=== PATIENT | male | born 1970 | race Caucasian/White ===

== ENCOUNTER 2023-11-09 09:27 | Emergency (ER) | payer OTHER, SELFPAY ==
[2023-11-09] VITALS (13 sets, daily range): BP systolic 98–165; BP diastolic 55–93; PULSE 57–72; RESP 13–20; TEMP 36.2; O2SAT 95–99; BMI 25.0
--- NOTE | 2023-11-09 09:30 | ECG_ITS ---
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
--- NOTE | 2023-11-09 09:30 | XR_ITS ---
The [address] [address] Patient Name: WILL GANDARA MRN: [id number] date: 1970 Sex: M Assigned Patient Location: ER Current Patient Location: ED.MAIN Accession/Order Number: [id number] Exam Date: 11/09/2023 09:37 Report Date: 11/09/2023 10:16 At the request of: OMAR BENEDICT Procedure: XR chest 1V HISTORY: Chest pain. XR chest 1V: 11/09/2023 9:37 AM EST COMPARISON: None. FINDINGS: The cardiomediastinal silhouette appears within normal limits in size. No focal consolidation, pleural effusion, pneumothorax, or evidence of congestive heart failure is seen. XR/XR chest 1V IMPRESSION: No radiographic evidence of active cardiopulmonary disease is seen. Electronically authenticated by: JASWINDER BAI Date: 11/09/2023 10:16
[2023-11-09 09:35] LABS: Basophils Absolute Auto 0.1 10^3/uL (0.0-0.1); Basophils Percent Auto 0.9 % (0.2-2.0); Eosinophils Absolute Auto 0.3 10^3/uL (0.0-0.7); Eosinophils Percent Auto 3.9 % (0.9-7.0); Hematocrit 45.6 % (42.0-54.0); Hemoglobin 15.8 g/dL (14.0-18.0); Immature Granulocytes Abs Auto 0.02 10^3/uL (0.00-0.03); Immature Granulocytes Pct Auto 0.3 % (0.0-0.5); Lymphocytes Absolute Auto 1.4 10^3/uL (1.2-3.8); Mean Corpuscular HGB Conc 34.6 g/dL (29.9-35.2); Mean Corpuscular Hemoglobin 32.8 pg (25.9-34.0); Mean Corpuscular Volume 94.6 fL (80.0-94.0); Mean Platelet Volume 9.5 fL (9.5-13.5); Monocytes Absolute Auto 0.6 10^3/uL (0.3-0.8); Monocytes Percent Auto 8.8 % (1.7-12.0); Neutrophils Absolute Auto 4.4 10^3/uL (1.4-6.5); Neutrophils Percent Auto 65.1 % (43.0-75.0); Platelet Count 268 10^3/uL (150-450); Red Blood Count 4.82 10^6/uL (4.70-6.10); Red Cell Distribution Width 12.7 % (11.0-15.0); White Blood Count 6.7 10^3/uL (4.0-11.0)
--- NOTE | 2023-11-09 09:44 | ED_ITS ---
HPI - Chest Pain General Chief Complaint: Chest Pain Stated Complaint: CHEST PAIN Time Seen by Provider: 11/09/23 09:29 Source: patient Mode of arrival: ambulance Limitations: no limitations History of Present Illness HPI narrative: Presenting to us with a retrosternal chest pressure that he felt almost at 4 AM, he mentioned that he does not have the pressure anymore but he feels like he panicked after he had it and he is worried about his pain. The patient denies any cough any nausea or any feeling of dizziness. He did mention that he felt like he is dehydrated when he had the pain. He also mentioned that he had some alcoholic drinks before going to sleep and he went to sleep at 8 PM. The patient have smoking cigarettes history with 1 pack/day Related Data Allergies Allergy/AdvReac Type Severity Reaction Status Date / Time No Known Drug Allergies Allergy Verified 11/09/23 09:36 Review of Systems ROS Status of ROS 10 or more systems reviewed and unremark able except as noted in history and below [facility] Social History Smoking status: Current every day smoker Exam Narrative Exam Narrative: Nurses notes and vital signs reviewed and patient is not hypoxic. General: Well-appearing and in no apparent distress. Skin: Warm, dry, no pallor noted. No rash. Head: Normocephalic, atraumatic. Neck: Supple, non-tender. Eye: Pupils are equal, round and EOMI. No scleral icterus. Ears, Nose, Mouth, and Throat: TM are clear, no nasal mucosal hypertrophy. Oral mucosa is moist, no posterior oropharynx erythema, uvula is mid-line Cardiovascular: Regular Rate and Rhythm without murmur, gallop or rub. Respiratory: No accessory muscle use or respiratory distress. Lungs are clear to auscultation, no wheezing, rales or rhonchi Chest Wall: no tenderness Back: No midline thoracic or lumbar vertebral tenderness. No CVA tenderness Musculoskeletal: normal ROM, no calf or popliteal tenderness, no lower extremity edema/swelling GI: Abdomen is soft, non-distended. Normal bowel sounds. No masses appreciated. No tenderness to palpation. No rebound, guarding, or rigidity noted. Neurological: A&O x4. No cranial nerve dysfunction observed. No truncal ataxia. Moves all extremities. Sensation intact. Psychiatric: Cooperative and interactive. Normal mood and affect. Constitutional Vital Signs, click to edit/add: Last Vital Signs Temp 97.1 F L 11/09/23 09:29 Pulse 62 11/09/23 10:40 Resp 18 11/09/23 10:40 BP 130/76 11/09/23 10:33 Pulse Ox 97 11/09/23 10:40 O2 Del Method Room Air 11/09/23 09:29 Course Vital Signs Vital signs: Vital Signs Temperature 97.1 F L 11/09/23 09:29 Pulse Rate 65 11/09/23 09:29 Respiratory Rate 14 11/09/23 09:29 Blood Pressure 165/93 H 11/09/23 09:29 Pulse Oximetry 99 11/09/23 09:29 Oxygen Delivery Method Room Air 11/09/23 09:29 Temperature 97.1 F L 11/09/23 09:29 Pulse Rate 62 11/09/23 10:40 Respiratory Rate 18 11/09/23 10:40 Blood Pressure 130/76 11/09/23 10:33 Pulse Oximetry 97 11/09/23 10:40 Oxygen Delivery Method Room Air 11/09/23 09:29 MDM - Chest Pain MDM Narrative Medical decision making narrative: The patient EKG showing sinus rhythm with a heart rate of [address] elevation or depression there is T wave inversion in lead aVL CBC and chemistry showed no acute pathology and he was discharged home after a negative troponin was obtained twice Patient had no chest pain in the ER right now his pain could be atypical mostly acid reflux He was instructed that he need to follow-up with a primary care doctor as outpatient he also was advised against smoking cigarettes The patient is to follow up with primary care physician in next 2-3 days or to return to the emergency department should any of the signs or symptoms worsen or new symptoms develop. The patient agrees with the following Diagnosis and Treatment plan and the patient will be discharged home. Lab Data Labs: Lab Results 11/09/23 11/09/23 Range/Units 09:29 10:40 WBC 6.7 (4.0-11.0) 10^3/uL RBC 4.82 (4.70-6.10) 10^6/uL Hgb 15.8 (14.0-18.0) g/dL Hct 45.6 (42.0-54.0) % MCV 94.6 H (80.0-94.0) fL MCH 32.8 (25.9-34.0) pg MCHC 34.6 (29.9-35.2) g/dL RDW 12.7 (11.0-15.0) % Plt Count 268 (150-450) 10^3/uL MPV 9.5 (9.5-13.5) fL Neut % (Auto) 65.1 (43.0-75.0) % Lymph % (Auto) 21.0 (20.5-60.0) % [place] % (Auto) 8.8 (1.7-12.0) % Eos % (Auto) 3.9 (0.9-7.0) % Baso % (Auto) 0.9 (0.2-2.0) % Neut # (Auto) 4.4 (1.4-6.5) 10^3/uL Lymph # (Auto) 1.4 (1.2-3.8) 10^3/uL [place] # (Auto) 0.6 (0.3-0.8) 10^3/uL Eos # (Auto) 0.3 (0.0-0.7) 10^3/uL Baso # (Auto) 0.1 (0.0-0.1) 10^3/uL Abs Immat Gran (auto) 0.02 (0.00-0.03) 10^3/uL Imm/Tot Granulo (auto) 0.3 (0.0-0.5) % PT 9.4 (9.0-11.6) sec INR <0.93 Sodium 136 (136-145) mmol/L Potassium 3.9 (3.5-5.1) mmol/L Chloride 98 (98-107) mmol/L Carbon Dioxide 26.4 (21.0-32.0) mmol/L Anion Gap 15.5 BUN 6.0 L (7.0-18.0) mg/dL Creatinine 0.92 (0.70-1.30) mg/dL Est GFR ( Amer) >60 (>=60) Est GFR (Non-Af Amer) >60 (>=60) BUN/Creatinine Ratio 6.5 Glucose 102 (74-106) mg/dL Calcium 8.5 (8.5-10.1) mg/dL Total Bilirubin 0.3 (0.2-1.0) mg/dL AST 16 (15-37) U/L ALT 23 (16-63) U/L Alkaline Phosphatase 58 (46-116) U/L Troponin I High Sens 4.1 4.4 (4.0-76.1) pg/mL Total Protein 7.6 (6.4-8.2) g/dL Albumin 4.2 (3.4-5.0) g/dL Globulin 3.4 g/dL Albumin/Globulin Ratio 1.2 Discharge Plan Discharge Chief Complaint: Chest Pain Clinical Impression: Chest pain due to GERD, Atypical chest pain Patient Disposition: Home, Self-Care Time of Disposition Decision: 10:18 Condition: Good Instructions: GERD (Gastroesophageal Reflux Disease) (DC), Noncardiac Chest Pain (ED) Stand Alone Forms: Portal Instructions Referrals: Magdiel Jean MD [Physician] - 1 week Physician,Non-Staff, [Primary Care Provider] - 1 week
[2023-11-09 09:51] LABS: Prothrombin Time 9.4 sec (9.0-11.6)
[2023-11-09 09:56] LABS: Alanine Aminotransferase 23 U/L (16-63); Albumin Globulin Ratio 1.2; Albumin Level 4.2 g/dL (3.4-5.0); Alkaline Phosphatase 58 U/L (46-116); Anion Gap 15.5; Aspartate Amino Transferase 16 U/L (15-37); BUN Creatinine Ratio 6.5; Bilirubin Total 0.3 mg/dL (0.2-1.0); Calcium 8.5 mg/dL (8.5-10.1); Carbon Dioxide 26.4 mmol/L (21.0-32.0); Chloride 98 mmol/L (98-107); Estimated GFR (African America >60 (>=60); Estimated GFR (Non-African Ame >60 (>=60); Globulin 3.4 g/dL; Glucose 102 mg/dL (74-106); Potassium 3.9 mmol/L (3.5-5.1); Sodium 136 mmol/L (136-145); Total Protein 7.6 g/dL (6.4-8.2); Troponin I High Sensitivity 4.1 pg/mL (4.0-76.1)
[2023-11-09 09:57] LABS: INR <0.93
[2023-11-09 11:07] LABS: Troponin I High Sensitivity 4.4 pg/mL (4.0-76.1)
== END 2023-11-09 11:18 | disposition home or self-care (01) ==
PROVIDERS: Emergency Provider Emergency Medicine
DX: K21.9 Gastro-esophageal reflux disease without esophagitis (principal); R07.89 Other chest pain; F17.210 Nicotine dependence, cigarettes, uncomplicated
CPT/HCPCS: 36415; 71045; 80053; 84484; 85025; 85610; 93005; 99285

== ENCOUNTER 2023-12-18 16:32 | Emergency (ER) | payer OTHER, SELFPAY ==
--- OUTSIDE RECORDS SUMMARY | 2023-12-18 16:51 | XMS_ITS | CCD ---
Author Name Unknown Address [address] [facility] [address] [place] [id number] Organization [facility] Care Team Providers Care Storage Battery Charger Name Role Phone PAY ., DR ZEPEDA Consulting Unavailable PAY ., DR ZEPEDA Admitting Unavailable REQUEST, NONE LISTED Primary Care Unavaila ble PAY ., DR ZEPEDA Attending Unavailable REQUEST, NONE LISTED Primary Care Unavaila ble ZIEBER, DR ELIZABETH Coronado Consulting Unavailable MELISSA ., JULIA Admitting Unavailable MELISSA ., JULIA Attending Unavailable MELISSA ., JULIA Consulting Unavailable REQUEST, DR NONE LISTED Primary Care Unavaila ble MELISSA ., JULIA Admitting Unavailable Glenn Vela Consulting Unavailable MELISSA ., JULIA Attending Unavailable MELISSA ., JULIA Consulting Unavailable REQUEST, DR NONE LISTED Primary Care Unavaila ble HAY ., DR VILLALBA Admitting Unavailable HAY ., DR VILLALBA Attending Unavailable HAY ., DR VILLALBA Consulting Unavailable Problems Active Problems Problem Classification Problem Date Documented Da te Episodic/Chronic Genitourinary symptoms and ill-defined conditions (1 source) Retention of urine, unspecified; Translations: [RETENTION OF URINE UNSPECIFIED] Onset: 12-04-2022 Episodic Substance-related disorders (1 source) Nicotine dependence, cigarettes, uncomplicated; Translations: [NICOTINE DEPEND CIGARETTES UNCOMP] Onset: 05-24-2022 Chronic Unclassified (3 sources) LOW BACK PAIN, UNSPECIFIED; Translations: [LOW BACK PAIN, UNSPECIFIED] Onset: 05-24-2022 Past or Other Problems Problem Classification Problem Date Documented Da te Episodic/Chronic Other non-traumatic joint disorders (3 sources) Pain in right knee; Translations: [PAIN IN RIGHT KNEE] Onset: 03-27-2022 Episodic Other non-traumatic joint disorders (1 source) Effusion, right knee; Translations: [EFFUSION RIGHT KNEE] Onset: 04-02-2022 Episodic Skin and subcutaneous tissue infections (4 sources) Cutaneous abscess of perineum; Translations: [CUTANEOUS ABSCESS OF PERINEUM] Onset: 02-21-2022 Episodic Unclassified (1 source) LOW BACK PAIN, UNSPECIFIED; Translations: [LOW BACK PAIN, UNSPECIFIED] Onset: 12-03-2022 Results Test Name Value Interpretation Reference Range Facil ity ER URINE PROFILEon 3 Bilirubin Ql (U) Negative Normal NEGATIVE The [facility] Comment on above: Performed By: #### E RUR #### [facility] [address] [place] [address] Dr. Norbert Mcclure Clarity (U) CLEAR Normal CLEAR [facility] Comment on above: Performed By: #### E RUR #### [facility] [address] [place] [address] Dr. Norbert Mcclure Color (U) YELLOW Normal YELLOW [facility] Comment on above: Performed By: #### E RUR #### [facility] [address] [place] [address] Dr. Norbert SENA A micrscopic examination will be performed if indicated. Normal [facility] Comment on above: Performed By: #### E RUR #### [facility] [address] [place] [address] Dr. Norbert Mcclure Glucose Ql (U) Negative Normal NEGATIVE [facility] Comment on above: Performed By: #### E RUR #### [facility] [address] [place] [address] Dr. Norbert Mcclure Hemoglobin Ql (U) Negative Normal NEGATIVE [facility] Comment on above: Performed By: #### E RUR #### [facility] [address] [place] [address] Dr. Norbert Mcclure Ketones Ql (U) Negative Normal NEGATIVE [facility] Comment on above: Performed By: #### E RUR #### [facility] [address] [place] [address] Dr. Norbert Mcclure LEUKOCYTES Negative Normal NEGATIVE [facility] Comment on above: Performed By: #### E RUR #### [facility] [address] [place] [address] Dr. Norbert Mcclure Nitrite Ql (U) Negative Normal NEGATIVE [facility] Comment on above: Performed By: #### E RUR #### [facility] [address] [place] [address] Dr. Norbert Mcclure pH (U) 6.0 [pH] Normal 5-9 [facility] Comment on above: Performed By: #### E RUR #### [facility] [address] [place] [address] Dr. Norbert Mcclure SPEC GRAVITY 1.010 Normal 1.005-<=1.025 [facility] Comment on above: Performed By: #### E RUR #### [facility] [address] [place] [address] Dr. Norbert Mcclure UA PROTEIN Negative Normal NEGATIVE/ TRACE [facility] Comment on above: Performed By: #### E RUR #### [facility] [address] [place] [address] Dr. Norbert Mcclure UR MICRO IND NOT INDICATED Normal [facility] Comment on above: Performed By: #### E RUR #### [facility] [address] [place] [address] Dr. Norbert Mcclure Urobilinogen Qn (U) 0.2 {Dara'U}/dL Normal 0.2 - 1. 0 [facility] Comment on above: Performed By: #### E RUR #### [facility] [address] [place] [address] Dr. Norbert Mcclure XR LSPINE 2_3 VIEWSon 2021 XR LSPINE 2_3 VIEWS EXAMINATION: XR LSPINE 2_3 VIEWS HISTORY: Pain ; low back and left leg pain COMPARISON: No relevant comparison available. FINDINGS: BONES: Mild degenerative facet arthropathy L4-L5, L5-S1. Slight right convex curvature of lumbar spine. No fracture or visible bony lesion. DISC SPACES: Moderate-marked narrowing L5-S1. Mild narrowing L3-L4, L4-L5. PARASPINOUS: Negative. No paraspinous abnormality is seen. OTHER: Negative. IMPRESSION: 1. Degenerative changes of the lower lumbar spine; moderate-marked at L5-S1. 2. No acute bone abnormality. Electronically authenticated by: ELIZABETH CHOW Date: 2022-05-22 10:10 Normal [facility] Encounters Encounter Date Encounter Type Care Provider Facility Start: 12-03-2022 End: 12-03-[address] KATELYN NEW . Facility: Start: 05-22-2022 End: 05-22-2022 ambulatory NONE LISTED REQUEST Facility: Start: 03-27-2022 End: 03-27-2022 ambulatory NONE LISTED REQUEST Facility: Start: 02-21-2022 End: 02-21-2022 ambulatory NONE LISTED REQUEST Facility: Payers Date Payer Category Payer Unknown [id number] 1970 Unknown [id number] 1970 Unknown [id number] 1970 Unknown [id number] 1959 Unknown [id number] 1959 Unknown [id number] Clinical Note 03-27-2022 Note Date & Type Note Facility 03-27-2022 Note PROCEDURE: XR KNEE R T 4V or > COMPARISON: None. HISTORY: Bone injury FINDINGS: BONES:No acute fracture or dislocation. Minimal degenerative changes of the medial compartment. Marginal osteophyte formation. Area of focal sclerosis identified in the lateral femoral condyle, narrow zone of transition suggests a benign enostosis SOFT TISSUES:Negative. No visible soft tissue swelling. EFFUSION:Small suprapatellar joint effusion OTHER: Negative. IMPRESSION: Mild degenerative changes Small joint effusion Electronically authenticated by: GLENN VELA Date: 2022-03-27 10:58 [facility] Summary Purpose Family History No Family History Records Found Advance Directives No Advanced Directives Records Found Additional Source Comments (unrecognized sect ion and content) No Status Records Found INFORMATION SOURCE (unrecogn ized section and content) DATE CREATED AUTHOR 01/16/2023 [facility] FOR RECORDS PERTAINING TO PATIENTS WHO ARE OR HAVE BEEN ENROLLED IN A CHEMICAL DEPENDENCY/SUBSTANCEABUSE PROGRAM, SOME INFORMATION MAY BE OMITTED. This clinical summary was aggregated from multiple sources. Caution should be exercised in using it in the provision of clinical care. This summary normalizes information from multiple sources, and as a consequence, information in this document may materially change the coding, format and clinical context of patient data. In addition, data may be omitted in some cases. CLINICAL DECISIONS SHOULD BE BASED ON THE PRIMARY CLINICAL RECORDS. [facility] [employer] [facility]. provides no warranty or guarantee of the accuracy or completeness of information in this document.
[2023-12-18 17:04] VITALS: BP 141/75; PULSE 67; RESP 18; TEMP 36.7; O2SAT 96; BMI 22.9
--- NOTE | 2023-12-18 17:09 | XR_ITS ---
The [address] [address] Patient Name: WILL GANDARA MRN: [id number] date: 1970 Sex: M Assigned Patient Location: ER Current Patient Location: ER Accession/Order Number: [id number] Exam Date: 12/18/2023 17:12 Report Date: 12/18/2023 17:32 At the request of: VIKA LION Procedure: XR chest 2V EXAM: XR chest 2V HISTORY: cough COMPARISON: 11/09/2023 TECHNIQUE: Upright PA and lateral chest x-ray FINDINGS: The heart is not enlarged and the vasculature is not distended. No acute infiltrate, effusion or pneumothorax is identified. The osseous structures are grossly intact. XR/XR chest 2V IMPRESSION: No acute infiltrate or evidence of cardiac decompensation. The overall appearance of the chest is essentially unchanged. Electronically authenticated by: DAGOBERTO SALGADO Date: 12/18/2023 17:32
[2023-12-18 17:55] LABS: SARS-CoV-2 Ag NEGATIVE (NEGATIVE)
[2023-12-18 17:56] LABS: Influenza Virus A Antigen Negative; Influenza Virus B Antigen Negative; Internal Control Within Normal Limits
--- NOTE | 2023-12-18 18:04 | ED.URI1 ---
HPI - URI/Sore Throat General Chief Complaint: Upper Respiratory Infection Stated Complaint: CONGESTION Time Seen by Provider: 12/18/23 18:01 Source: patient Limitations: no limitations History of Present Illness HPI Narrative: 53 year old male presents to the ED for sinus congestion/drainage, cough, fatigue. Onset was 3 days ago. Denies fever, chills, SOB, N/V/D. He is a smoker. Related Data Previous Rx's Medication Instructions Recorded azithromycin 250 mg tablet See Rx Instructions PO .COMPLEX #6 12/18/23 (Zithromax Z-Rafael) tabs Allergies Allergy/AdvReac Type Severity Reaction Status Date / Time No Known Drug Allergies Allergy Verified 12/18/23 17:06 Review of Systems ROS Constitutional Denies: fever or chills Ears, nose, mouth, and throat Denies: throat pain or neck pain Cardiovascular Denies: chest pain Respiratory Reports: cough and wheezing; Denies: shortness of breath Gastrointestinal Denies: abdominal pain, nausea, vomiting or diarrhea Musculoskeletal Denies: back pain or neck pain Integumentary/Breast Denies: rash or itching Neurological Denies: headache PFSH PFSH Social History Smoking status: Current every day smoker Exam Constitutional Vital Signs, click to edit/add: Last Vital Signs Temp 98.1 F 12/18/23 17:04 Pulse 67 12/18/23 17:04 Resp 18 12/18/23 17:04 BP 141/75 12/18/23 17:04 Pulse Ox 96 12/18/23 17:04 O2 Del Method Room Air 12/18/23 17:04 HENMT Face and sinus: normal facial exam Nose: nasal discharge Mouth: oral and palatal mucosa normal, lip normal and tongue normal Throat: posterior oropharynx normal and uvula midline Eye Common normals: conjunctivae normal and no scleral icterus Neck & C-Spine Common normals: supple Chest Chest: symmetrical chest wall rise Respiratory Common normals: normal respiratory effort and no use of accessory muscles Effort & inspection: able to speak in complete sentences Auscultation: wheezes expiratory wheezes Cardio Common normals: regular rate and regular rhythm Neuro Common normals: oriented x3 Sensorium/orientation: awake and alert Speech: speech normal Gait (neuro): normal gait Course Vital Signs Vital signs: Vital Signs Temperature 98.1 F 12/18/23 17:04 Pulse Rate 67 12/18/23 17:04 Respiratory Rate 18 12/18/23 17:04 Blood Pressure 141/75 12/18/23 17:04 Pulse Oximetry 96 12/18/23 17:04 Oxygen Delivery Method Room Air 12/18/23 17:04 Temperature 98.1 F 12/18/23 17:04 Pulse Rate 67 12/18/23 17:04 Respiratory Rate 18 12/18/23 17:04 Blood Pressure 141/75 12/18/23 17:04 Pulse Oximetry 96 12/18/23 17:04 Oxygen Delivery Method Room Air 12/18/23 17:04 MDM - URI/Sore Throat MDM Narrative Medical decision making narrative: Covid-19 and inflienza were negative. Chest x-ray was negative for acute findings. He is a smoker. He does have hx pneumonia. States he has an inhaler at home. A prescription was provided for Zithromax. Follow up with pcp for a recheck, further evaluation and treatment. Differential Diagnosis Differential diagnosis: Likely upper respiratory infection, sinusitis, viral infection, bronchitis and influenza Medical Records Attestation: I reviewed the patient's medical records. Lab Data Attestation: I reviewed the patient's lab results. Labs: Lab Results 12/18/23 Range/Units 17:00 Influenza Type A Ag Negative Influenza Type B Ag Negative SARS-CoV-2 Ag (CV2AG) Negative (NEGATIVE) Imaging Data Chest x-ray: Attestation: I have reviewed the pertinent imaging results. Radiologist's impression: ITS Impressions Chest X-Ray 12/18/23 17:09 IMPRESSION: No acute infiltrate or evidence of cardiac decompensation. The overall appearance of the chest is essentially unchanged. Electronically authenticated by: DAGOBERTO SALGADO Date: 12/18/2023 17:32 Discharge Plan Discharge Chief Complaint: Upper Respiratory Infection Clinical Impression: Cough Patient Disposition: Home, Self-Care Time of Disposition Decision: 18:06 Condition: Good Mode of Transportation: Private Vehicle Prescriptions / Home Meds: New azithromycin [Zithromax Z-Rafael] 250 mg tablet See Rx Instructions .ROUTE .COMPLEX Qty: 6 0RF Rx Instructions: For 250 mg dose pack: take 500 mg today (day 1), then 250 mg for 4 days (days 2-5) Instructions: Acute Bronchitis (ED), Acute Cough (ED) Stand Alone Forms: Portal Instructions Referrals: Physician,Non-Staff, MD [Primary Care Provider] - 1 week
== END 2023-12-18 18:11 | disposition home or self-care (01) ==
PROVIDERS: Emergency Provider Emergency Medicine
DX: R05.9 Cough, unspecified (principal); F17.200 Nicotine dependence, unspecified, uncomplicated; Z87.01 Personal history of pneumonia (recurrent)
CPT/HCPCS: 71046; 87804; 87811; 99284

== ENCOUNTER 2024-01-14 19:42 | Emergency (ER) | payer OTHER, SELFPAY ==
[2024-01-14 19:51] VITALS: BP 139/77; PULSE 76; RESP 15; TEMP 36.6; O2SAT 98; BMI 23.8
--- NOTE | 2024-01-14 20:17 | ED.ALLEREA1 ---
Documented by User: EDEL House 01/14/24 20:20 HPI - Allergic Reaction General Chief complaint: Allergic Reaction Stated complaint: Allergic Reaction, Face Swelling Time Seen by Provider: 01/14/24 19:57 Source: patient Mode of arrival: walk-in History of Present Illness HPI narrative: Patient is a 53-year-old male who presents to the emergency department for swelling on the sides of his lower lip that he noted this afternoon. He states he had the sensation earlier today that his lip was swollen and His coworker at [employer] thought his lips looked mildly swollen. He states he shaved his tavares this afternoon and feels as though the right and left corners of the lower lip are mildly swollen and he has a small red rash to the right lower corner of the lip. 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 He has no swelling inside the mouth, tongue swelling or difficulty breathing. He has dentures to the lower mouth, no new denture creams or medications. He did not take anything prior to arrival. He denies any difficulty breathing. Related Data Previous Rx's ?Medication ?Instructions ?Recorded famotidine 20 mg tablet (Pepcid) 20 mg PO BID #10 tabs 01/14/24 prednisone 20 mg tablet See Rx Instructions .Route 01/14/24 .COMPLEX #12 tabs Allergies Allergy/AdvReac Type Severity Reaction Status Date / Time No Known Drug Allergies Allergy Verified 12/18/23 17:06 Review of Systems ROS Constitutional Denies: fever or chills Ears, nose, mouth, and throat Denies: throat pain or nasal congestion Respiratory Denies: shortness of breath Gastrointestinal Denies: nausea or vomiting Musculoskeletal Denies: back pain Integumentary/Breast Reports: rash Allergic/Immunologic Reports: facial swelling; Denies: hives, throat swelling or tongue swelling [facility] Social History Smoking status: Current every day smoker Exam Narrative Exam Narrative: Gen.: Awake, alert, in no distress Head: Normocephalic, atraumatic ENT: Moist mucous membranes; Dentures in place, no swelling of the tongue or under the tongue. Airway widely open and patent. Clear speech. Lower lip is minimally edematous, laterally and bilaterally. Mild irritation noted to the right corner of the lip, no crusting or drainage noted. No mucous membrane involvement to the rash Respiratory: No respiratory distress Extremities: Moves extremities equally Psych: Normal mood and affect Neuro: No focal neuro deficit Skin: Warm, dry, intact Constitutional Vital Signs, click to edit/add: Last Vital Signs Temp 98 F 01/14/24 19:51 Pulse 76 01/14/24 19:51 Resp 15 01/14/24 19:51 BP 139/77 01/14/24 19:51 Pulse Ox 98 01/14/24 19:51 O2 Del Method Room Air 01/14/24 19:51 Course Vital Signs Vital signs: Vital Signs Temperature 98 F 01/14/24 19:51 Pulse Rate 76 01/14/24 19:51 Respiratory Rate 15 01/14/24 19:51 Blood Pressure 139/77 01/14/24 19:51 Pulse Oximetry 98 01/14/24 19:51 Oxygen Delivery Method Room Air 01/14/24 19:51 Temperature 98 F 01/14/24 19:51 Pulse Rate 76 01/14/24 19:51 Respiratory Rate 15 01/14/24 19:51 Blood Pressure 139/77 01/14/24 19:51 Pulse Oximetry 98 01/14/24 19:51 Oxygen Delivery Method Room Air 01/14/24 19:51 MDM - Allergic Reaction MDM Narrative Medical decision making narrative: Patient treated for allergic reaction versus possible early impetigo. He was given Bactroban cream for the rash as well as steroids and antihistamines. He has no evidence of significant angioedema, he does not take any medications at home on a daily basis and has no evidence of airway involvement. He is encouraged to return to the ER if symptoms change or worsen. Medical Records Attestation: I reviewed the patient's medical records. Discharge Plan Discharge Stand Alone Forms: Portal Instructions Chief Complaint: Allergic Reaction Clinical Impression: Lip swelling Patient Disposition: Home, Self-Care Time of Disposition Decision: 20:15 Condition: Good Prescriptions / Home Meds: New prednisone 20 mg tablet See Rx Instructions .ROUTE .COMPLEX Qty: 12 0RF Rx Instructions: 3 tabs daily for 2 days, then 2 tabs daily for 2 days, then 1 tab daily for 2 days famotidine [Pepcid] 20 mg tablet 20 mg PO BID Qty: 10 0RF Print Language: Divehi Instructions: Allergies (ED) Referrals: Physician,Non-Staff, MD [Primary Care Provider] - 1 week Discharge Date/Time: 01/14/24 21:08 Documented by User: Alcon Ribera 01/14/24 23:13 HPI - Allergic Reaction General Chief complaint: Allergic Reaction Stated complaint: Allergic Reaction, Face Swelling Time Seen by Provider: 01/14/24 19:57 Related Data Previous Rx's ?Medication ?Instructions ?Recorded famotidine 20 mg tablet (Pepcid) 20 mg PO BID #10 tabs 01/14/24 prednisone 20 mg tablet See Rx Instructions .Route 01/14/24 .COMPLEX #12 tabs Allergies Allergy/AdvReac Type Severity Reaction Status Date / Time No Known Drug Allergies Allergy Verified 12/18/23 17:06 PFSH PFSH Social History Smoking status: Current every day smoker Exam Constitutional Vital Signs, click to edit/add: Last Vital Signs Temp 98 F 01/14/24 19:51 Pulse 76 01/14/24 19:51 Resp 15 01/14/24 19:51 BP 139/77 01/14/24 19:51 Pulse Ox 98 01/14/24 19:51 O2 Del Method Room Air 01/14/24 19:51 Course Vital Signs Vital signs: Vital Signs Temperature 98 F 01/14/24 19:51 Pulse Rate 76 01/14/24 19:51 Respiratory Rate 15 01/14/24 19:51 Blood Pressure 139/77 01/14/24 19:51 Pulse Oximetry 98 01/14/24 19:51 Oxygen Delivery Method Room Air 01/14/24 19:51 Temperature 98 F 01/14/24 19:51 Pulse Rate 76 01/14/24 19:51 Respiratory Rate 15 01/14/24 19:51 Blood Pressure 139/77 01/14/24 19:51 Pulse Oximetry 98 01/14/24 19:51 Oxygen Delivery Method Room Air 01/14/24 19:51 MDM - Allergic Reaction MDM Narrative Medical decision making narrative: Patient treated for allergic reaction versus possible early impetigo. He was given Bactroban cream for the rash as well as steroids and antihistamines. He has no evidence of significant angioedema, he does not take any medications at home on a daily basis and has no evidence of airway involvement. He is encouraged to return to the ER if symptoms change or worsen. For this patient encounter I reviewed the mid-level provider?s documentation, medical decision-making and treatment plan, and I personally spent time with this patient. Shared APC visit, physician attestation: [id number]: The visit was performed by both a physician and an APC. I performed all aspects of MDM as documented. - DO Olena Discharge Plan Discharge Stand Alone Forms: Portal Instructions Chief Complaint: Allergic Reaction Clinical Impression: Lip swelling Patient Disposition: Home, Self-Care Time of Disposition Decision: 20:15 Condition: Good Prescriptions / Home Meds: New prednisone 20 mg tablet See Rx Instructions .ROUTE .COMPLEX Qty: 12 0RF Rx Instructions: 3 tabs daily for 2 days, then 2 tabs daily for 2 days, then 1 tab daily for 2 days famotidine [Pepcid] 20 mg tablet 20 mg PO BID Qty: 10 0RF Print Language: Divehi Instructions: Allergies (ED) Referrals: Physician,Non-Staff, MD [Primary Care Provider] - 1 week Discharge Date/Time: 01/14/24 21:08
--- OUTSIDE RECORDS SUMMARY | 2024-01-14 20:24 | XMS_ITS | CCD ---
Author Organization [facility] Care Team Providers Care Systems Applications Programming Lead Name Role Phone PAY ., DR ZEPEDA Consulting Unavailable PAY ., DR ZEPEDA Admitting Unavailable REQUEST, DR NONE LISTED Primary Care Unavaila ble PAY [...] 3 Bilirubin Ql (U) Negative Normal NEGATIVE [facility] Comment on above: Performed By: #### E RUR #### [facility] [address] [place] [address] Dr. Norbert Mcclure Clarity (U) CLEAR Normal CLEAR [facility] Comment on above: Performed By: #### E RUR #### [facility] [address] [place] [address] Dr. Norbert Mcclure Color (U) YELLOW Normal YELLOW [facility] Comment on above: Performed By: #### E RUR #### [facility] [address] [place] [address] Dr. Norbert SENA A micrscopic examination will be performed if indicated. Normal [facility] Comment on above: Performed By: #### E RUR #### [facility] [address] [place] [address] Dr. Norbert Mcclure Glucose Ql (U) Negative Normal NEGATIVE [facility] Comment on above: Performed By: #### E RUR #### [facility] [address] [place] [address] Dr. Norbert Mcclure Hemoglobin Ql (U) Negative Normal NEGATIVE [facility] Comment on above: Performed By: #### E RUR #### [facility] [address] [place] [address] Dr. Norbert Mcclure Ketones Ql (U) Negative Normal NEGATIVE [facility] Comment on above: Performed By: #### E RUR #### [facility] [address] [place] [address] Dr. Norbert Mcclure LEUKOCYTES Negative Normal NEGATIVE [facility] Comment on above: Performed By: #### E RUR #### [facility] [address] [place] [address] Dr. Norbert Mcclure Nitrite Ql (U) Negative Normal NEGATIVE [facility] Comment on above: Performed By: #### E RUR #### [facility] [address] [place] [address] Dr. Norbert Mcclure pH (U) 6.0 [pH] Normal 5-9 [facility] Comment on above: Performed By: #### E RUR #### [facility] [address] [address] [address] Norbert Mcclure SPEC GRAVITY 1.010 Normal 1.005-<=1.025 [facility] Comment on above: Performed By: #### E RUR #### [facility] [address] [place] [address] Dr. Norbert Mcclure UA PROTEIN Negative Normal NEGATIVE/ TRACE [facility] Comment on above: Performed By: #### E RUR #### [facility] [address] [place] [address] Dr. Norbert Mcclure UR MICRO IND NOT INDICATED Normal [facility] Comment on above: Performed By: #### E RUR #### [facility] [address] [place] [address] Dr. Norbert Mcclure Urobilinogen Qn (U) 0.2 {Dara'U}/dL Normal 0.2 - 1. 0 [facility] Comment on above: Performed By: #### E RUR #### [facility] [address] [place] [address] Dr. Norbert Mcclure XR LSPINE 2_3 VIEWSon [...] ELIZABETH CHOW Date: 2022-05-22 10:10 Normal [facility] Encounters Encounter Date Encounter Type Care Provider Facility Start: 12-03-2022 End: 12-03-[address] KATELYN NEW . Facility: Start: 05-22-2022 End: 05-22-[address] NONE LISTED REQUEST Facility: Start: 03-27-2022 End: 03-27-2022 ambulatory NONE LISTED REQUEST Facility: Start: 02-21-2022 End: 02-21-[address] NONE LISTED REQUEST Facility: Payers Date Payer Category Payer Unknown [id number] [id number] [id number] 1970 Unknown [id number] 2.16.84 [id number] 1970 Unknown [id number] 2.16.84 [id number] 1970 Unknown [id number] 2.16.84 [id number] 1959 Unknown [id number] 1959 Unknown [id number] Clinical Note 03-27-2022 Note Date & Type [...] authenticated by: GLENN VELA Date: 2022-03-27 10:58 [facility] Summary Purpose Family History No Family History Records Found Advance Directives No Advanced Directives Records Found Additional Source Comments (unrecognized sect ion and content) No Status Records Found INFORMATION SOURCE (unrecogn ized section and content) DATE CREATED AUTHOR 01/16/[address] [facility] FOR RECORDS PERTAINING TO PATIENTS [...] BE BASED ON THE PRIMARY CLINICAL RECORDS. [facility] [employer] [facility]. provides no warranty or guarantee of the accuracy or completeness of information in this document.
[2024-01-14] MEDS: FAMOTIDINE 20 MG TABLET PO (20:29)
[2024-01-14] MEDS: PREDNISONE 20 MG TABLET 60 MG PO (20:29)
[2024-01-14] MEDS: MUPIROCIN 2% OINTMENT 22 GRAM TUBE 1 APPLIC TOPICAL (20:39)
--- NOTE | 2024-01-14 21:03 | NUTR.NU ---
no swelling of tongue and airway patent with no wheezing or coughing.
== END 2024-01-14 21:08 | disposition home or self-care (01) ==
PROVIDERS: Emergency Provider Emergency Medicine
DX: R22.0 Localized swelling, mass and lump, head (principal); F17.210 Nicotine dependence, cigarettes, uncomplicated
CPT/HCPCS: 99283

== ENCOUNTER 2024-02-06 15:27 | Emergency (ER) | payer OTHER, SELFPAY ==
[2024-02-06 15:32] VITALS: BP 139/80; PULSE 65; TEMP 36.7; O2SAT 98; BMI 21.8
[2024-02-06 16:07] LABS: Bilirubin Urine NEGATIVE (NEGATIVE); Blood Urine NEGATIVE (NEGATIVE); Clarity Urine SL CLOUDY (CLEAR); Color Urine LT. YELLOW (YELLOW); Glucose Urine UA NEGATIVE (NEGATIVE); Ketones Urine NEGATIVE (NEGATIVE); Leukocyte Esterase Urine MODERATE (NEGATIVE); Nitrite Urine POSITIVE (NEGATIVE); Protein Urine NEGATIVE (NEG/TRACE); pH Urine 7.5 (5.0-9.0)
[2024-02-06 16:08] LABS: Urine Microscopic Indicated YES
[2024-02-06 16:16] LABS: Bacteria Urine MODERATE #/HPF (NONE SEEN); Cast Seen? NONE SEEN #/LPF (NONE SEEN); Crystals Seen? None Seen #/HPF (None Seen); Mucus Urine NONE SEEN (NONE SEEN); RBC Urine NONE SEEN #/HPF (0-2); Squamous Epithelial Cell Urine FEW #/LPF (NONE/RARE); Urine Culture Indicated YES; WBC Urine 20-50 #/HPF (NONE SEEN)
--- NOTE | 2024-02-06 16:33 | ED.GENADUL1 ---
HPI HPI - General Adult General Chief complaint: Urogenital-Male Stated complaint: UTI Time Seen by Provider: 02/06/24 15:41 Source: patient Mode of arrival: walk-in History of Present Illness HPI narrative: This patient is here for evaluation of possible UTI. He had an infection several years ago and took antibiotic therapy and it resolved itself. He has no history of kidney stones. He has no fever shakes or chills. He noticed that his urine was smelling and he had increased frequency of urination. He does not have a family doctor, he has not seen a family doctor for a long time. Social history is positive for substantial amounts of alcohol especially on weekends. He has a very good appetite but despite having a good appetite he states his weight is gone from 210 pounds to 170 pounds in approximately 1 month. 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 Related Data Previous Rx's ?Medication ?Instructions ?Recorded famotidine 20 mg tablet (Pepcid) 20 mg PO BID #10 tabs 01/14/24 prednisone 20 mg tablet See Rx Instructions .Route 01/14/24 .COMPLEX #12 tabs Allergies Allergy/AdvReac Type Severity Reaction Status Date / Time No Known Drug Allergies Allergy Verified 12/18/23 17:06 Opioid HPI Opioid Management Most Recent Opioid Data: No Data to Display PFSH PFSH Social History Smoking status: Current every day smoker Exam Narrative Exam Narrative: Well-hydrated well-nourished very tall thin male. Does not appear ill his vital signs are able temperature is normal, pox ox amatory is normal as well. Skin is warm and dry mucous membranes are moist and pink. There is no scleral icterus or pallor he does not appear pale. He has no cough or congestion. He has no swelling of the extremities. Constitutional Vital Signs, click to edit/add: Last Vital Signs Temp 98.0 F 02/06/24 15:32 Pulse 65 02/06/24 15:32 Resp 16 02/06/24 15:32 BP 139/80 02/06/24 15:32 Pulse Ox 98 02/06/24 15:32 O2 Del Method Room Air 02/06/24 15:32 Course Vital Signs Vital signs: Vital Signs Temperature 98.0 F 02/06/24 15:32 Pulse Rate 65 02/06/24 15:32 Respiratory Rate 16 02/06/24 15:32 Blood Pressure 139/80 02/06/24 15:32 Pulse Oximetry 98 02/06/24 15:32 Oxygen Delivery Method Room Air 02/06/24 15:32 Temperature 98.0 F 02/06/24 15:32 Pulse Rate 65 02/06/24 15:32 Respiratory Rate 16 02/06/24 15:32 Blood Pressure 139/80 02/06/24 15:32 Pulse Oximetry 98 02/06/24 15:32 Oxygen Delivery Method Room Air 02/06/24 15:32 Medical Decision Making MDM Narrative Medical decision making narrative: This patient presents with uncomplicated urinary tract symptomatology. He does have insurance but unfortunately does not have a primary care doctor. Weight loss is most probable due to extreme calorie burn at his new place of employment but I am going to do some screening lab. I had an extensive discussion with him that the screening test, if abnormal, need follow-up and he must absolutely get a family doctor. Lab Data Labs: Lab Results 02/06/24 Range/Units 16:01 Urine Color Lt. yellow (YELLOW) Urine Clarity Sl cloudy (CLEAR) Urine pH 7.5 (5.0-9.0) Ur Specific [place] 1.020 (1.005-1.025) Urine Protein Negative (NEG/TRACE) mg/dL Urine Glucose (UA) Negative (NEGATIVE) mg/dL Urine Ketones Negative (NEGATIVE) mg/dL Urine Occult Blood Negative (NEGATIVE) Urine Nitrite Positive A (NEGATIVE) Urine Bilirubin Negative (NEGATIVE) Urine Urobilinogen 2.0 A (0.2-1.0) EU/dL Ur Leukocyte Esterase Moderate A (NEGATIVE) Urine RBC None seen (0-2) #/HPF Urine WBC 20-50 A (NONE SEEN) #/HPF Ur Squamous Epith Cells Few A (NONE/RARE) #/LPF Urine Crystals None seen (None Seen) #/HPF Urine Bacteria Moderate A (NONE SEEN) #/HPF Urine Casts None seen (NONE SEEN) #/LPF Urine Mucus None seen (NONE SEEN) Ur Culture Indicated? Yes Discharge Plan Discharge Stand Alone Forms: Portal Instructions Chief Complaint: Urogenital-Male Clinical Impression: Urinary tract infection Patient Disposition: Home, Self-Care Time of Disposition Decision: 16:35 Prescriptions / Home Meds: No Action prednisone 20 mg tablet See Rx Instructions .ROUTE .COMPLEX Qty: 12 0RF Rx Instructions: 3 tabs daily for 2 days, then 2 tabs daily for 2 days, then 1 tab daily for 2 days famotidine [Pepcid] 20 mg tablet 20 mg PO BID Qty: 10 0RF Print Language: Tajik Additional Instructions: Cipro for 7 days. Drink additional fluids and water. Referrals: Physician,Non-Staff, MD [Primary Care Provider] - 1 week
[2024-02-06] MEDS: CIPROFLOXACIN HCL 500 MG TABLET PO (16:44)
[2024-02-06 17:15] LABS: Alanine Aminotransferase 17 U/L (16-63); Albumin Globulin Ratio 1.5; Alkaline Phosphatase 52 U/L (46-116); Aspartate Amino Transferase 12 U/L (15-37); BUN Creatinine Ratio 12.8; Bilirubin Total 0.6 mg/dL (0.2-1.0); Calcium 9.3 mg/dL (8.5-10.1); Carbon Dioxide 29.3 mmol/L (21.0-32.0); Chloride 104 mmol/L (98-107); Estimated GFR (African America >60 (>=60); Estimated GFR (Non-African Ame >60 (>=60); Globulin 2.7 g/dL; Glucose 89 mg/dL (74-106); Potassium 4.3 mmol/L (3.5-5.1); Sodium 141 mmol/L (136-145); Total Protein 6.7 g/dL (6.4-8.2)
[2024-02-06 17:23] LABS: TSH W/ REFLEX FT4 1.031 uIU/mL (0.358-3.740)
[2024-02-08 04:07] LABS: CEA 2.4 ng/mL (0.0-4.7); PSA, Free 0.12 ng/mL; Prostate Specific Ag 0.9 ng/mL (0.0-4.0)
== END 2024-02-06 16:53 | disposition home or self-care (01) ==
PROVIDERS: Emergency Provider Emergency Medicine Emergency Medical Services
DX: N39.0 Urinary tract infection, site not specified (principal); F17.210 Nicotine dependence, cigarettes, uncomplicated
CPT/HCPCS: 36415; 80053; 81001; 82378; 84153; 84154; 84443; 87086; 99284

== ENCOUNTER 2024-06-01 12:11 | Emergency (ER) | payer OTHER, SELFPAY ==
[2024-06-01 12:19] VITALS: BP 133/80; PULSE 57; TEMP 36.6; O2SAT 97; BMI 22.2
--- OUTSIDE RECORDS SUMMARY | 2024-06-01 12:37 | XMS_ITS ---
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 Name Role Phone PAY ., DR ZEPEDA Consulting Unavailable PAY ., DR ZEPEAD Admitting Unavailable REQUEST, DR NONE LISTED Primary Care Unavaila ble PAY ., DR ZEPEDA Attending Unavailable REQUEST, NONE LISTED Primary Care Unavaila ble ZIEBER, DR ELIZABETH Coronado Consulting Unavailable MELISSA ., JULIA Admitting Unavailable MELISSA ., JULIA Attending Unavailable MELISSA ., JULIA Consulting Unavailable REQUEST, DR NONE LISTED Primary Care Unavaila ble MELISSA ., JULIA Admitting Unavailable Carlos Alberto, Glenn Consulting Unavailable MELISSA ., JULIA Attending Unavailable MELISSA ., JULIA Consulting Unavailable REQUEST, DR NONE LISTED Primary Care Unavaila ble HAY ., DR VILLALBA Admitting Unavailable HAY ., DR VILLALBA Attending Unavailable HAY ., DR VILLALBA Consulting Unavailable Encounters Encounter Date Encounter Type Care Provider Facility Start: 12-03-2022 End: 12-03-[address] KATELYN NEW . Facility: Start: 05-22-2022 End: 05-22-[address] NONE LISTED REQUEST Facility: Start: 03-27-2022 End: 03-27-[address] NONE LISTED REQUEST Facility: Start: 02-21-2022 End: 02-21-[address] NONE LISTED REQUEST Facility: Payers Date Payer Category Payer Unknown [id number] 1970 Unknown [id number] 2.16.84 [id number] 1970 Unknown [id number] 2.16.84 [id number] 1970 Unknown [id number] 2.16.84 [id number] 1959 Unknown [id number] 1959 Unknown [id number] Problems Active Problems Problem Classification Problem Date [...] Bilirubin Ql (U) Negative Normal NEGATIVE [facility] Comment on above: Performed By: #### E RUR #### [facility] [address] [place] [address] Dr. Norbert Mcclure Clarity (U) CLEAR Normal CLEAR [facility] Comment on above: Performed By: #### E RUR #### [facility] [address] [place] [address] Dr. Norbert Mcclure Color (U) YELLOW Normal YELLOW [facility] Comment on above: Performed By: #### E RUR #### [facility] [address] [place] [address] Dr. Norbert SENA A micrscopic examination will be performed if indicated. Normal [facility] Comment on above: Performed By: #### E RUR #### [facility] [address] [place] [address] Dr. Norbert Mcclure Glucose Ql (U) Negative Normal NEGATIVE [facility] Comment on above: Performed By: #### E RUR #### [facility] [address] [place] [address] Dr. Norbert Mcclure Hemoglobin Ql (U) Negative Normal NEGATIVE [facility] Comment on above: Performed By: #### E RUR #### [facility] [address] [place] [address] Dr. Norbert Mcclure Ketones Ql (U) Negative Normal NEGATIVE [facility] Comment on above: Performed By: #### E RUR #### [facility] [address] [place] [address] Dr. Norbert Mcclure LEUKOCYTES Negative Normal NEGATIVE [facility] Comment on above: Performed By: #### E RUR #### [facility] [address] [place] [address] Dr. Norbert Mcclure Nitrite Ql (U) Negative Normal NEGATIVE [facility] Comment on above: Performed By: #### E RUR #### [facility] [address] [place] [address] Dr. Norbert Mcclure pH (U) 6.0 [pH] Normal 5-9 [facility] Comment on above: Performed By: #### E RUR #### [facility] [address] [place] [address] Dr. Norbert Mcclure SPEC GRAVITY 1.010 Normal 1.005-<=1.025 [facility] Comment on above: Performed By: #### E RUR #### [facility] [address] [place] [address] Dr. Norbert Mcclure UA PROTEIN Negative Normal NEGATIVE/ TRACE [facility] Comment on above: Performed By: #### E RUR #### [facility] [address] [place] [address] Dr. Norbert Mcclure UR MICRO IND NOT INDICATED Normal [facility] Comment on above: Performed By: #### E RUR #### [facility] [address] [place] [address] Dr. Norbert Mcclure Urobilinogen Qn (U) 0.2 {Dara'U}/dL Normal 0.2 - 1. 0 [facility] Comment on above: Performed By: #### E RUR #### [facility] [address] [address] [address] Norbert Mcclure XR LSPINE 2_3 VIEWSon [...] ELIZABETH CHOW Date: 2022-05-22 10:10 Normal [facility] Clinical Note 03-27-2022 Note Date & Type [...] authenticated by: GLENN VELA Date: 2022-03-27 10:58 [facility] Summary Purpose Family History No Family History Records Found Advance Directives No Advanced Directives Records Found Additional Source Comments (unrecognized sect ion and content) No Status Records Found INFORMATION SOURCE (unrecogn ized section and content) DATE CREATED AUTHOR 01/16/2023 [facility] FOR RECORDS PERTAINING TO PATIENTS WHO ARE [...] BE BASED ON THE PRIMARY CLINICAL RECORDS. [facility] [employer] [facility]. provides no warranty or guarantee of the accuracy or completeness of information in this document.
[2024-06-01 12:38] LABS: Bilirubin Urine NEGATIVE (NEGATIVE); Blood Urine NEGATIVE (NEGATIVE); Clarity Urine CLEAR (CLEAR); Color Urine LT. YELLOW (YELLOW); Glucose Urine UA NEGATIVE (NEGATIVE); Ketones Urine NEGATIVE (NEGATIVE); Leukocyte Esterase Urine NEGATIVE (NEGATIVE); Nitrite Urine NEGATIVE (NEGATIVE); Protein Urine NEGATIVE (NEG/TRACE); Specific Gravity Urine 1.025 (1.005-1.025); Urobilinogen Urine 0.2 EU/dL (0.2-1.0)
[2024-06-01 12:42] LABS: Urine Microscopic Indicated NO
--- NOTE | 2024-06-01 13:56 | ED_ITS ---
HPI HPI - General Adult General Chief complaint: Back Pain/Injury Stated complaint: BACK PAIN, FLANK PAIN Time Seen by Provider: 06/01/24 12:24 Source: patient Mode of arrival: walk-in Limitations: no limitations History of Present Illness HPI narrative: 53-year-old male to the emergency department chief complaint of back pain. Patient reports that he has chronic low back pain. He treats this with rest and heat pad. He reports that he heard you can have urinary tract infections that can cause back pain however and would like to be tested for a UTI. He denies any dysuria, urgency, frequency, hematuria. He denies any fever, sweats, chills. He denies any numbness, weakness, tingling, bowel bladder incontinence or retention. Related Data Home Medications ?Medication ?Instructions ?Recorded ?Confirmed No Known Home Medications 06/01/24 06/01/24 Allergies Allergy/AdvReac Type Severity Reaction Status Date / Time No Known Drug Allergies Allergy Verified 12/18/23 17:06 Opioid HPI Opioid Management Most Recent Opioid Data: No Data to Display Review of Systems ROS Status of ROS 10 or more systems reviewed and unremark able except as noted in history and below [facility] Social History Smoking status: Current every day smoker Exam Narrative Exam Narrative: VITALS: I have reviewed the triage vital signs. GENERAL: Well developed, well appearing adult in no acute distress. NEURO: Alert and oriented. Moves all extremities. Face is symmetric and expressive. Patellar reflexes brisk and equal bilaterally. Normal gait. Plantar flexion/dorsiflexion, knee flexion/extension, hip flexion/extension are grossly intact with 5/5 strength. Sensation is intact across the bilateral lower extremities. SPINE: No midline cervical, thoracic, or lumbar tenderness. No step-off or deformities. No paraspinal muscle tenderness or increased tone. EYES: PERRL. No scleral icterus or conjunctival injection. No discharge. HENT: Normocephalic, atraumatic. Hearing is grossly intact. Nares grossly patent and without discharge. Mucous membranes moist. NECK: No JVD. Patient moves neck without restriction. CARDIO: Rhythm regular. Normal rate. No murmur, rub, or gallop. Pulses equal bilaterally in the upper and lower extremity. No lower extremity edema. PULM: Lungs clear to auscultation in all quach. No wheezes, rales, or rhonchi. No conversational dyspnea. No splinting, stridor, or accessory muscle use. GI/: Abdomen is soft and non-tender. Normoactive bowel sounds. No flank tenderness. EXTREMITIES: Symmetric muscle bulk. No joint swelling. No clubbing, cyanosis, or deformity. SKIN: Warm and dry. Normal turgor. No rash or lesions appreciated. PSYCH: Mood, affect, and interaction is appropriate to the setting. Constitutional Vital Signs, click to edit/add: Last Vital Signs Temp 97.9 F 06/01/24 12:19 Pulse 57 L 06/01/24 12:19 Resp 18 06/01/24 12:19 BP 133/80 06/01/24 12:19 Pulse Ox 97 06/01/24 12:19 O2 Del Method Room Air 06/01/24 12:19 Course Vital Signs Vital signs: Vital Signs Temperature 97.9 F 06/01/24 12:19 Pulse Rate 57 L 06/01/24 12:19 Respiratory Rate 18 06/01/24 12:19 Blood Pressure 133/80 06/01/24 12:19 Pulse Oximetry 97 06/01/24 12:19 Oxygen Delivery Method Room Air 06/01/24 12:19 Temperature 97.9 F 06/01/24 12:19 Pulse Rate 57 L 06/01/24 12:19 Respiratory Rate 18 06/01/24 12:19 Blood Pressure 133/80 06/01/24 12:19 Pulse Oximetry 97 06/01/24 12:19 Oxygen Delivery Method Room Air 06/01/24 12:19 Medical Decision Making MDM Narrative Medical decision making narrative: Well-appearing 53-year-old male with chronic back pain to the emergency department requesting urinalysis to rule out UTI. Vital stable, the patient is afebrile. Urinalysis is unremarkable. Discussed the findings with the patient. I offered treatment for his acute on c hronic back pain and he declined. He would like to be discharged. Return precautions were discussed. All questions were answered. The patient was discharged home. Lab Data Lab results reviewed: Yes I reviewed the patient's lab results Labs: Lab Results 06/01/24 Range/Units 12:21 Urine Color Lt. yellow (YELLOW) Urine Clarity Clear (CLEAR) Urine pH 6.0 (5.0-9.0) Ur Specific [place] 1.025 (1.005-1.025) Urine Protein Negative (NEG/TRACE) mg/dL Urine Glucose (UA) Negative (NEGATIVE) mg/dL Urine Ketones Negative (NEGATIVE) mg/dL Urine Occult Blood Negative (NEGATIVE) Urine Nitrite Negative (NEGATIVE) Urine Bilirubin Negative (NEGATIVE) Urine Urobilinogen 0.2 (0.2-1.0) EU/dL Ur Leukocyte Esterase Negative (NEGATIVE) Discharge Plan Discharge Stand Alone Forms: Portal Instructions Chief Complaint: Back Pain/Injury Clinical Impression: Chronic back pain Patient Disposition: Home, Self-Care Time of Disposition Decision: 13:15 Condition: Good Mode of Transportation: Private Vehicle Prescriptions / Home Meds: No Action No Known Home Medications Print Language: Yemeni Instructions: Chronic Back Pain (DC) Additional Instructions: Seek immediate medical attention if you develop: increasing pain, numbness, tingling, weakness, loss of motion in your arms or legs, loss of control of your urine or stool, fever, abdominal pain, chest pain, shortness of breath, or any new or worsening symptoms. Referrals: Physician,Non-Staff, MD [Primary Care Provider] - 1 week Discharge Date/Time: 06/01/24 13:32
== END 2024-06-01 13:32 | disposition home or self-care (01) ==
PROVIDERS: Emergency Provider Student in an Organized Health Care Education/Training Program
DX: M54.9 Dorsalgia, unspecified (principal); G89.29 Other chronic pain; F17.210 Nicotine dependence, cigarettes, uncomplicated
CPT/HCPCS: 81003; 99283

== ENCOUNTER 2024-07-30 08:00 | Emergency (ER) | payer OTHER, SELFPAY ==
[2024-07-30 08:25] VITALS: BP 146/88; PULSE 50; TEMP 36.5; O2SAT 100; BMI 21.8
--- OUTSIDE RECORDS SUMMARY | 2024-07-30 08:26 | XMS_ITS | CCD ---
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 Norbert Mcclure Clarity (U) CLEAR Normal CLEAR [facility] Comment on above: Performed By: #### E RUR #### [facility] [address] [place] [address] Dr. Norbert Mcclure Color (U) YELLOW Normal YELLOW [facility] Comment on above: Performed By: #### E RUR #### [facility] [address] [place] [address] Dr. Norbert SENA A micrscopic examination will be performed if indicated. Normal [facility] Comment on above: Performed By: #### E RUR #### [facility] [address] [place] [address] Dr. Norbert Mcclure Glucose Ql (U) Negative Normal NEGATIVE [facility] Comment on above: Performed By: #### E RUR #### [facility] [address] [place] [address] Dr. Norbert Mcclure Hemoglobin Ql (U) Negative Normal NEGATIVE [facility] Comment on above: Performed By: #### E RUR #### [facility] [address] [place] [address] Dr. Norbert Mcclure Ketones Ql (U) Negative Normal NEGATIVE [facility] Comment on above: Performed By: #### E RUR #### [facility] [address] [place] [address] Dr. Norbert Mcclure LEUKOCYTES Negative Normal NEGATIVE [facility] Comment on above: Performed By: #### E RUR #### [facility] [address] [place] [address] Dr. Norbert Mcclure Nitrite Ql (U) Negative Normal NEGATIVE [facility] Comment on above: Performed By: #### E RUR #### [facility] [address] [place] [address] Dr. Norbert Mcclure pH (U) 6.0 [pH] Normal 5-9 [facility] Comment on above: Performed By: #### E RUR #### [facility] [address] [place] [address] Dr. Norbert Mcclure SPEC GRAVITY 1.010 Normal 1.005-<=1.025 The [facility] Comment on above: Performed By: #### E RUR #### [facility] [address] [place] [address] Dr. Norbert Mcclure UA PROTEIN Negative Normal NEGATIVE/ TRACE The [facility] Comment on above: Performed By: #### E RUR #### [facility] [address] [place] [address] Dr. Norbert Mcclure UR MICRO IND NOT INDICATED Normal The [facility] Comment on above: Performed By: #### E RUR #### [facility] [address] [place] [address] Dr. Norbert Mcclure Urobilinogen Qn (U) 0.2 {Dara'U}/dL Normal 0.2 - 1. 0 [facility] Comment on above: Performed By: #### E RUR #### [facility] [address] [place] [address] Dr. Norbert Mcclure XR LSPINE 2_3 VIEWSon [...] ELIZABETH CHOW Date: 2022-05-22 10:10 Normal [facility] Encounters Encounter Date Encounter Type Care Provider Facility Start: 12-03-2022 End: 12-03-[address] KATELYN NEW . Facility: Start: 05-22-2022 End: 05-22-[address] NONE LISTED REQUEST Facility: Start: 03-27-2022 End: 03-27-[address] NONE LISTED REQUEST Facility: Start: 02-21-2022 End: 02-21-[address] NONE LISTED REQUEST Facility: Payers Date Payer Category Payer Unknown [id number] 2.16.84 [id number] 1970 Unknown [id number] 2.16.84 [id number] 1970 Unknown [id number] 2.16.84 [id number] 1970 Unknown [id number] 2.16.84 [id number] 1959 Unknown [id number] 1959 Unknown [id number] Clinical Note 03-27-2022 Note Date & Type [...] authenticated by: GLENN VELA Date: 2022-03-27 10:58 [facility] Summary Purpose Family History No Family History Records Found Advance Directives No Advanced Directives Records Found Additional Source Comments (unrecognized sect ion and content) No Status Records Found INFORMATION SOURCE (unrecogn ized section and content) DATE CREATED AUTHOR 01/16/2023 The [facility] FOR RECORDS PERTAINING TO PATIENTS WHO [...] BE BASED ON THE PRIMARY CLINICAL RECORDS. [facility]. provides no warranty or guarantee of the accuracy or completeness of information in this document.
--- NOTE | 2024-07-30 08:39 | ED.MALEGU1 ---
HPI - Male Genitourinary General Chief complaint: Urogenital-Male Stated complaint: URINARY ISSUES Time Seen by Provider: 07/30/24 08:03 Source: patient Mode of arrival: walk-in Limitations: no limitations History of Present Illness HPI Narrative: 53-year-old male presents to the emergency department for a chief complaint of pain on urination. He has had this for the last day or 2. No gross hematuria or unusual back pain. No abdominal pain vomiting or fever. He has had UTI in the past. Related Data Previous Rx's ?Medication ?Instructions ?Recorded ciprofloxacin HCl 250 mg tablet 250 mg PO BID #14 tabs 07/30/24 (Cipro) Allergies Allergy/AdvReac Type Severity Reaction Status Date / Time No Known Drug Allergies Allergy Verified 07/30/24 08:27 Review of Systems ROS Narrative A ten point review of systems is negative except as noted above. PFSH PFS Social History Smoking status: Current every day smoker Little interest or pleasure in doing things: not at all Feeling down, depressed, or hopeless: not at all Exam Narrative Exam Narrative: Nurses note and vital signs reviewed and patient is not hypoxic. General: The patient appears well and in no apparent distress. Patient is resting comfortably on cart. Skin: Warm, dry, no pallor noted. There is no rash noted. Head: Normocephalic, atraumatic Eye: Normal conjunctiva, no drainage Ears, Nose, Mouth, and Throat: oral mucosa is moist. Nares patent. Cardiovascular: Regular Rate and Rhythm Respiratory: Patient is in no distress, no accessory muscle use, lungs are clear to auscultation, no wheezing, rales or rhonchi Back: non-tender, no CVA tenderness bilaterally to percussion. GI: Soft and nontender Musculoskeletal: The patient has no evidence of calf tenderness, no pitting edema, symmetrical pulses noted bilaterally Neurological: A&O, normal speech Psychiatric: Cooperative Constitutional Vital Signs, click to edit/add: Last Vital Signs Temp 97.7 F 07/30/24 08:25 Pulse 50 L 07/30/24 08:25 Resp 18 07/30/24 08:25 BP 146/88 H 07/30/24 08:25 Pulse Ox 100 07/30/24 08:25 O2 Del Method Room Air 07/30/24 08:25 Course Vital Signs Vital signs: Vital Signs Temperature 97.7 F 07/30/24 08:25 Pulse Rate 50 L 07/30/24 08:25 Respiratory Rate 18 07/30/24 08:25 Blood Pressure 146/88 H 07/30/24 08:25 Pulse Oximetry 100 07/30/24 08:25 Oxygen Delivery Method Room Air 07/30/24 08:25 Temperature 97.7 F 07/30/24 08:25 Pulse Rate 50 L 07/30/24 08:25 Respiratory Rate 18 07/30/24 08:25 Blood Pressure 146/88 H 07/30/24 08:25 Pulse Oximetry 100 07/30/24 08:25 Oxygen Delivery Method Room Air 07/30/24 08:25 MDM - Male Genitourinary MDM Narrative Medical decision making narrative: UTI is identified. He started on Cipro here and cultures pending. Treatment diagnosis and follow-up were discussed with the patient. Differential Diagnosis Differential diagnosis: Likely urinary tract infection and urethritis Lab Data Attestation: I reviewed the patient's lab results. Labs: Lab Results 07/30/24 Range/Units 08:40 Urine Color Lt. yellow (YELLOW) Urine Clarity Sl cloudy (CLEAR) Urine pH 6.0 (5.0-9.0) Ur Specific [place] >=1.030 A (1.005-1.025) Urine Protein 30 A (NEG/TRACE) mg/dL Urine Glucose (UA) Negative (NEGATIVE) mg/dL Urine Ketones Negative (NEGATIVE) mg/dL Urine Occult Blood Small A (NEGATIVE) Urine Nitrite Negative (NEGATIVE) Urine Bilirubin Negative (NEGATIVE) Urine Urobilinogen 0.2 (0.2-1.0) EU/dL Ur Leukocyte Esterase Moderate A (NEGATIVE) Urine RBC 0-2 (0-2) #/HPF Urine WBC 50-75 A (NONE SEEN) #/HPF Ur Squamous Epith Cells Rare (NONE/RARE) #/LPF Ur Transition Epith Cell Rare A (NONE SEEN) #/LPF Urine Crystals None seen (None Seen) #/HPF Urine Bacteria Large A (NONE SEEN) #/HPF Urine Casts Seen A (NONE SEEN) #/LPF Hyaline Casts Rare Urine Mucus Trace A (NONE SEEN) Ur Culture Indicated? Yes Discharge Plan Discharge Chief Complaint: Urogenital-Male Clinical Impression: Urinary tract infection Patient Disposition: Home, Self-Care Time of Disposition Decision: 08:59 Condition: Good Mode of Transportation: Private Vehicle Prescriptions / Home Meds: New ciprofloxacin HCl [Cipro] 250 mg tablet 250 mg PO BID Qty: 14 0RF Print Language: Maori Instructions: Urinary Tract Infection in Men (ED) Referrals: Physician,Non-Staff, MD [Primary Care Provider] - 1 week
[2024-07-30 08:46] LABS: Bilirubin Urine NEGATIVE (NEGATIVE); Blood Urine SMALL (NEGATIVE); Clarity Urine SL CLOUDY (CLEAR); Color Urine LT. YELLOW (YELLOW); Glucose Urine UA NEGATIVE (NEGATIVE); Ketones Urine NEGATIVE (NEGATIVE); Leukocyte Esterase Urine MODERATE (NEGATIVE); Nitrite Urine NEGATIVE (NEGATIVE); Protein Urine 30 mg/dL (NEG/TRACE); Specific Gravity Urine >=1.030 (1.005-1.025); Urobilinogen Urine 0.2 EU/dL (0.2-1.0)
[2024-07-30 08:54] LABS: Bacteria Urine LARGE #/HPF (NONE SEEN); Mucus Urine TRACE (NONE SEEN); RBC Urine 0-2 #/HPF (0-2); Squamous Epithelial Cell Urine RARE #/LPF (NONE/RARE); Transitional Epi Cells Urine RARE #/LPF (NONE SEEN); WBC Urine 50-75 #/HPF (NONE SEEN)
[2024-07-30 08:55] LABS: Cast Seen? SEEN #/LPF (NONE SEEN); Crystals Seen? None Seen #/HPF (None Seen); Hyaline Casts Urine RARE; Urine Culture Indicated YES
[2024-07-30] MEDS: CIPROFLOXACIN HCL 500 MG TABLET PO (09:14)
[2024-07-30 09:15] VITALS: BP 136/92; PULSE 53; O2SAT 99
== END 2024-07-30 09:15 | disposition home or self-care (01) ==
PROVIDERS: Emergency Provider Emergency Medicine
DX: N39.0 Urinary tract infection, site not specified (principal); F17.200 Nicotine dependence, unspecified, uncomplicated; Z87.440 Personal history of urinary (tract) infections
CPT/HCPCS: 81001; 87086; 99283

== ENCOUNTER 2024-09-02 20:19 | Emergency (ER) | payer OTHER, SELFPAY ==
[2024-09-02 20:23] VITALS: BP 122/71; PULSE 57; TEMP 36.6; O2SAT 98
--- OUTSIDE RECORDS SUMMARY | 2024-09-02 20:32 | XMS_ITS | CCD ---
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 Norbert Mcclure Clarity (U) CLEAR Normal CLEAR [facility] Comment on above: Performed By: #### E RUR #### [facility] [address] [place] [address] Dr. Norbert Mcclure Color (U) YELLOW Normal YELLOW [facility] Comment on above: Performed By: #### E RUR #### [facility] [address] [place] [address] Dr. Norbert SENA A micrscopic examination will be performed if indicated. Normal [facility] Comment on above: Performed By: #### E RUR #### [facility] [address] [place] [address] Dr. Norbert Mcclure Glucose Ql (U) Negative Normal NEGATIVE [facility] Comment on above: Performed By: #### E RUR #### [facility] [address] [place] [address] Dr. Norbert Mcclure Hemoglobin Ql (U) Negative Normal NEGATIVE [facility] Comment on above: Performed By: #### E RUR #### [facility] [address] [place] [address] Dr. Norbert Mcclure Ketones Ql (U) Negative Normal NEGATIVE [facility] [place] Comment on above: Performed By: #### E RUR #### [facility] [address] [place] [address] Dr. Norbert Mcclure LEUKOCYTES Negative Normal NEGATIVE [facility] Comment on above: Performed By: #### E RUR #### [facility] [address] [place] [address] Dr. Norbert Mcclure Nitrite Ql (U) Negative Normal NEGATIVE [facility] Comment on above: Performed By: #### E RUR #### [facility] [address] [place] [address] Dr. Norbert Mcclure pH (U) 6.0 [pH] Normal 5-9 [facility] Comment on above: Performed By: #### E RUR #### [facility] [address] [place] [address] Dr. Norbert Mcclure SPEC GRAVITY 1.010 Normal 1.005-<=1.025 [facility] Comment on above: Performed By: #### E RUR #### [facility] [address] [place] [address] Dr. Norbert Mcclure UA PROTEIN Negative Normal NEGATIVE/ TRACE [facility] Comment on above: Performed By: #### E RUR #### [facility] [address] [place] [address] Dr. Norbert Mcclure UR MICRO IND NOT INDICATED Normal [facility] Comment on above: Performed By: #### E RUR #### [facility] [address] [place] [address] Dr. Norbert Mcclure Urobilinogen Qn (U) 0.2 {Dara'U}/dL Normal 0.2 - 1. 0 [facility] Comment on above: Performed By: #### E RUR #### [facility] [address] [place] [address] Dr. Norbert Mcclure XR LSPINE 2_3 VIEWSon [...] ELIZABETH CHOW Date: 2022-05-22 10:10 Normal [facility] Encounters Encounter Date Encounter Type Care Provider Facility Start: 12-03-2022 End: 12-03-[address] KATELYN NEW . Facility: Start: 05-22-2022 End: 05-22-[address] NONE LISTED REQUEST Facility: Start: 03-27-2022 End: 03-27-[address] NONE LISTED REQUEST Facility: Start: 02-21-2022 End: 02-21-[address] NONE LISTED REQUEST Facility: Payers Date Payer Category Payer Unknown [id number] 2.16.84 [id number] 1970 Unknown [id number] 2.16.84 [id number] 1970 Unknown [id number] 2.16.84 [id number] 1970 Unknown [id number] 2.16.84 [id number] 1959 Unknown [id number] 1959 Unknown [id number] Clinical Note 03-27-2022 Note Date & Type [...] authenticated by: GLENN VELA Date: 2022-03-27 10:58 [facility] Summary Purpose Family History No Family History Records Found Advance Directives No Advanced Directives Records Found Additional Source Comments (unrecognized sect ion and content) No Status Records Found INFORMATION SOURCE (unrecogn ized section and content) DATE CREATED AUTHOR 01/16/2023 The [facility] FOR RECORDS PERTAINING TO PATIENTS WHO ARE [...] BE BASED ON THE PRIMARY CLINICAL RECORDS. [facility]. provides no warranty or guarantee of the accuracy or completeness of information in this document.
[2024-09-02 20:42] LABS: Bilirubin Urine NEGATIVE (NEGATIVE); Blood Urine SMALL (NEGATIVE); Clarity Urine CLOUDY (CLEAR); Color Urine LT. YELLOW (YELLOW); Glucose Urine UA NEGATIVE (NEGATIVE); Ketones Urine NEGATIVE (NEGATIVE); Leukocyte Esterase Urine SMALL (NEGATIVE); Nitrite Urine NEGATIVE (NEGATIVE); Protein Urine TRACE mg/dL (NEG/TRACE); Specific Gravity Urine 1.025 (1.005-1.025); Urobilinogen Urine 0.2 EU/dL (0.2-1.0)
[2024-09-02 20:43] LABS: Urine Microscopic Indicated YES
--- NOTE | 2024-09-02 20:50 | ED_ITS ---
<Statement entered by Stephan Siu MD - 09/03/24 01:22> This documentation has been reviewed and approved. Chart was sent to my inbox for administrative and group management purposes. I was the attending physicians working during the patients hospital course. The patient was seen and managed independently by the MLP. I did not personally see or evaluate this patient, nor was I involved in the patient medical decision making process or plans of care. Pt was dispositioned by the MLP with complete independence and I was not involved in planning. I was available for consultation should the MLP request during this patients ED stay. HPI - Male Genitourinary General Chief complaint: Urogenital-Male Stated complaint: UTI Time Seen by Provider: 09/02/24 20:20 Source: patient Mode of arrival: walk-in Limitations: no limitations History of Present Illness HPI Narrative: Patient is a 53-year-old male who presents to the emergency department with concern he has another urinary tract infection. He has been seen in this emergency department for the same previously. He has had no fevers, vomiting. No medications prior to arrival. He denies any flank pain, back pain, abdominal pain. He has not noted any blood in his urine. He has never seen a urologist before for frequent urinary tract infections. He has noted some burning with urination and frequency with urination. Related Data Previous Rx's ?Medication ?Instructions ?Recorded ciprofloxacin HCl 500 mg tablet 500 mg PO Q12H #14 tabs 09/02/24 Allergies Allergy/AdvReac Type Severity Reaction Status Date / Time No Known Drug Allergies Allergy Verified 09/02/24 20:25 Review of Systems ROS Constitutional Denies: fever or chills Ears, nose, mouth, and throat Denies: throat pain Cardiovascular Denies: chest pain Respiratory Denies: shortness of breath Gastrointestinal Denies: abdominal pain, nausea or vomiting Genitourinary Reports: painful urination and urinary frequency; Denies: blood in urine Musculoskeletal Denies: back pain Integumentary/Breast Denies: rash Hematologic/Lymphatic Denies: easy bruising or easy bleeding PFSH PFSH Social History Smoking status: Current every day smoker Little interest or pleasure in doing things: not at all Feeling down, depressed, or hopeless: not at all Exam Narrative Exam Narrative: Gen.: Awake, alert, in no distress Head: Normocephalic, atraumatic ENT: Moist mucous membranes Respiratory: No respiratory distress Gastrointestinal: Abdomen is soft, nondistended and nontender to palpation; no CVA tenderness, no flank or back pain Extremities: Moves extremities equally Psych: Normal mood and affect Neuro: No focal neuro deficit Skin: Warm, dry, intact Constitutional Vital Signs, click to edit/add: Last Vital Signs Temp 97.9 F 09/02/24 20:23 Pulse 57 L 09/02/24 20:23 Resp 18 09/02/24 20:23 BP 122/71 09/02/24 20:23 Pulse Ox 98 09/02/24 20:23 Course Vital Signs Vital signs: Vital Signs Temperature 97.9 F 09/02/24 20:23 Pulse Rate 57 L 09/02/24 20:23 Respiratory Rate 18 09/02/24 20:23 Blood Pressure 122/71 09/02/24 20:23 Pulse Oximetry 98 09/02/24 20:23 Temperature 97.9 F 09/02/24 20:23 Pulse Rate 57 L 09/02/24 20:23 Respiratory Rate 18 09/02/24 20:23 Blood Pressure 122/71 09/02/24 20:23 Pulse Oximetry 98 09/02/24 20:23 MDM - Male Genitourinary MDM Narrative Medical decision making narrative: Urine specimen showing urinary tract infection. Patient placed on Cipro, his most recent urine culture was positive for Enterococcus faecalis. Based on the patient's age and frequent UTIs, he is referred to urology and a test for gonorrhea, chlamydia was added to his urine specimen. Return to the emergency department if symptoms change or worsen. SUPERVISED APC VISIT, PHYSICIAN ATTESTATION: Based on the medical record the care appears appropriate. ? Medical Records Attestation: I reviewed the patient's medical records. Lab Data Attestation: I reviewed the patient's lab results. Labs: Lab Results 09/02/24 Range/Units 20:30 Urine Color Lt. yellow (YELLOW) Urine Clarity Cloudy A (CLEAR) Urine pH 6.0 (5.0-9.0) Ur Specific [place] 1.025 (1.005-1.025) Urine Protein Trace (NEG/TRACE) mg/dL Urine Glucose (UA) Negative (NEGATIVE) mg/dL Urine Ketones Negative (NEGATIVE) mg/dL Urine Occult Blood Small A (NEGATIVE) Urine Nitrite Negative (NEGATIVE) Urine Bilirubin Negative (NEGATIVE) Urine Urobilinogen 0.2 (0.2-1.0) EU/dL Ur Leukocyte Esterase Small A (NEGATIVE) Discharge Plan Discharge Chief Complaint: Urogenital-Male Clinical Impression: Acute UTI Patient Disposition: Home, Self-Care Time of Disposition Decision: 20:48 Condition: Good Prescriptions / Home Meds: New ciprofloxacin HCl 500 mg tablet 500 mg PO Q12H Qty: 14 0RF Print Language: Persian Instructions: Urinary Tract Infection in Men (ED) Referrals: Physician,Non-Staff, [Primary Care Provider] - 1 week Rakesh Streeter MD [Physician] - As needed
[2024-09-02] MEDS: CIPROFLOXACIN HCL 500 MG TABLET PO (21:00)
[2024-09-02 21:09] LABS: Cast Seen? NONE SEEN #/LPF (NONE SEEN); Crystals Seen? None Seen #/HPF (None Seen); Mucus Urine NONE SEEN (NONE SEEN); Squamous Epithelial Cell Urine RARE #/LPF (NONE/RARE); Urine Culture Indicated YES
[2024-09-02 21:14] LABS: Bacteria Urine LARGE #/HPF (NONE SEEN); WBC Urine >100 #/HPF (NONE SEEN)
[2024-09-05 04:12] LABS: Neisseria gonorrhoeae, NAA Negative (Negative)
== END 2024-09-02 21:05 | disposition home or self-care (01) ==
PROVIDERS: Physician Assistant; Emergency Provider Emergency Medicine
DX: N39.0 Urinary tract infection, site not specified (principal)
CPT/HCPCS: 81001; 87086; 87150; 87186; 87491; 87591; 99285

== ENCOUNTER 2024-10-15 09:44 | Emergency (ER) | payer OTHER, SELFPAY ==
[2024-10-15 09:46] VITALS: BP 128/78; PULSE 60; TEMP 36.8; O2SAT 99; BMI 23.1
--- OUTSIDE RECORDS SUMMARY | 2024-10-15 10:01 | XMS_ITS | CCD ---
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 Norbert Mcclure Clarity (U) CLEAR Normal CLEAR [facility] Comment on above: Performed By: #### E RUR #### [facility] [address] [place] [address] Dr. Norbert Mcclure Color (U) YELLOW Normal YELLOW [facility] Comment on above: Performed By: #### E RUR #### [facility] [address] [place] [address] Dr. Norbert SENA A micrscopic examination will be performed if indicated. Normal [facility] Comment on above: Performed By: #### E RUR #### [facility] [address] [place] [address] Dr. Norbert Mcclure Glucose Ql (U) Negative Normal NEGATIVE [facility] Comment on above: Performed By: #### E RUR #### [facility] [address] [place] [address] Dr. Norbert Mcclure Hemoglobin Ql (U) Negative Normal NEGATIVE [facility] Comment on above: Performed By: #### E RUR #### [facility] [address] [place] [address] Dr. Norbert Mcclure Ketones Ql (U) Negative Normal NEGATIVE [facility] Comment on above: Performed By: #### E RUR #### [facility] [address] [place] [address] Dr. Norbert Mcclure LEUKOCYTES Negative Normal NEGATIVE [facility] Comment on above: Performed By: #### E RUR #### [facility] [address] [place] [address] Dr. Norbert Mcclure Nitrite Ql (U) Negative Normal NEGATIVE [facility] Comment on above: Performed By: #### E RUR #### [facility] [address] [place] [address] Dr. Norbert Mcclure pH (U) 6.0 [pH] Normal 5-9 [facility] Comment on above: Performed By: #### E RUR #### [facility] [address] [place] [address] Dr. Norbert Mcclure SPEC GRAVITY 1.010 Normal 1.005-<=1.025 [facility] Comment on above: Performed By: #### E RUR #### [facility] [address] [place] [address] Dr. Norbert Mcclure UA PROTEIN Negative Normal NEGATIVE/ TRACE [facility] Comment on above: Performed By: #### E RUR #### [facility] [address] [place] [address] Dr. Norbert Mcclure UR MICRO IND NOT INDICATED Normal [facility] Comment on above: Performed By: #### E RUR #### [facility] [address] [place] [address] Dr. Norbert Mcclure Urobilinogen Qn (U) 0.2 {Dara'U}/dL Normal 0.2 - 1. 0 [facility] Comment on above: Performed By: #### E RUR #### [facility] [address] [place] [address] Dr. Norbert Mcclure XR LSPINE 2_3 VIEWSon [...] ELIZABETH CHOW Date: 2022-05-22 10:10 Normal [facility] Encounters Encounter Date Encounter Type Care Provider Facility Start: 12-03-2022 End: 12-03-[address] KATELYN NEW . Facility: Start: 05-22-2022 End: 05-22-[address] NONE LISTED REQUEST Facility: Start: 03-27-2022 End: 03-27-[address] NONE LISTED REQUEST Facility: Start: 02-21-2022 End: 02-21-[address] NONE LISTED REQUEST Facility: Payers Date Payer Category Payer Unknown [id number] [id number] [id number] 1970 Unknown [id number] [id number] [id number] 1970 Unknown [id number] [id number] [id number] 1970 Unknown [id number] 2.16.84 [id number] 1959 Unknown [id number] 1959 Unknown [id number] Clinical Note 03-27-2022 Note Date & Type [...] authenticated by: GLENN VELA Date: 2022-03-27 10:58 [facility] Summary Purpose Family History No Family History Records Found Advance Directives No Advanced Directives Records Found Additional Source Comments (unrecognized sect ion and content) No Status Records Found INFORMATION SOURCE (unrecogn ized section and content) DATE CREATED AUTHOR 01/16/2023 The [facility] FOR RECORDS PERTAINING TO PATIENTS WHO [...] BE BASED ON THE PRIMARY CLINICAL RECORDS. [facility]. provides no warranty or guarantee of the accuracy or completeness of information in this document.
[2024-10-15 10:12] LABS: Bilirubin Urine NEGATIVE (NEGATIVE); Blood Urine NEGATIVE (NEGATIVE); Clarity Urine CLEAR (CLEAR); Color Urine YELLOW (YELLOW); Glucose Urine UA NEGATIVE (NEGATIVE); Ketones Urine NEGATIVE (NEGATIVE); Leukocyte Esterase Urine NEGATIVE (NEGATIVE); Nitrite Urine NEGATIVE (NEGATIVE); Protein Urine NEGATIVE (NEG/TRACE); Specific Gravity Urine >=1.030 (1.005-1.025); Urobilinogen Urine 0.2 EU/dL (0.2-1.0); pH Urine 5.5 (5.0-9.0)
[2024-10-15 10:14] LABS: Urine Microscopic Indicated NO
--- NOTE | 2024-10-15 10:17 | ED.GENADUL1 ---
HPI HPI - General Adult General Chief complaint: Back Pain/Injury Stated complaint: back pain Time Seen by Provider: 10/15/24 09:48 Source: patient Mode of arrival: walk-in History of Present Illness HPI narrative: Patient comes to the ER with a chronic back pain history is coming to be checked for urine infection he mentioned that he have a history before of urine infection and since his pain got worse over the last 2 days. Although he admitted that his pain is chronic, he just wanted to be checked for urine infection The patient had no symptoms of burning with urination frequency urgency or any other concerns Related Data Previous Rx's ?Medication ?Instructions ?Recorded ciprofloxacin HCl 500 mg tablet 500 mg PO Q12H #14 tabs 09/02/24 Allergies Allergy/AdvReac Type Severity Reaction Status Date / Time No Known Drug Allergies Allergy Verified 09/02/24 20:25 Opioid HPI Opioid Management Most Recent Opioid Data: No Data to Display Review of Systems ROS Status of ROS 10 or more systems reviewed and unremarkable except as noted in history and below PFSH PFSH Social History Smoking status: Current every day smoker Little interest or pleasure in doing things: not at all Feeling down, depressed, or hopeless: not at all Exam Narrative Exam Narrative: Nurses notes and vital signs reviewed and patient is not hypoxic. General: Well-appearing and in no apparent distress. Skin: Warm, dry, no pallor noted. No rash. Head: Normocephalic, atraumatic. Neck: Supple, non-tender. Eye: Pupils are equal, round and EOMI. No scleral icterus. Ears, Nose, Mouth, and Throat: TM are clear, no nasal mucosal hypertrophy. Oral mucosa is moist, no posterior oropharynx erythema, uvula is mid-line Cardiovascular: Regular Rate and Rhythm without murmur, gallop or rub. Respiratory: No accessory muscle use or respiratory distress. Lungs are clear to auscultation, no wheezing, rales or rhonchi Chest Wall: no tenderness Back: No midline thoracic or lumbar vertebral tenderness. No CVA tenderness Musculoskeletal: normal ROM, no calf or popliteal tenderness, no lower extremity edema/swelling GI: Abdomen is soft, non-distended. Normal bowel sounds. No masses appreciated. No tenderness to palpation. No rebound, guarding, or rigidity noted. Neurological: A&O x4. No cranial nerve dysfunction observed. No truncal ataxia. Moves all extremities. Sensation intact. Psychiatric: Cooperative and interactive. Normal mood and affect. Constitutional Vital Signs, click to edit/add: Last Vital Signs Temp 98.3 F 10/15/24 09:46 Pulse 60 10/15/24 09:46 Resp 16 10/15/24 09:46 BP 128/78 10/15/24 09:46 Pulse Ox 99 10/15/24 09:46 O2 Del Method Room Air 10/15/24 09:46 Course Vital Signs Vital signs: Vital Signs Temperature 98.3 F 10/15/24 09:46 Pulse Rate 60 10/15/24 09:46 Respiratory Rate 16 10/15/24 09:46 Blood Pressure 128/78 10/15/24 09:46 Pulse Oximetry 99 10/15/24 09:46 Oxygen Delivery Method Room Air 10/15/24 09:46 Temperature 98.3 F 10/15/24 09:46 Pulse Rate 60 10/15/24 09:46 Respiratory Rate 16 10/15/24 09:46 Blood Pressure 128/78 10/15/24 09:46 Pulse Oximetry 99 10/15/24 09:46 Oxygen Delivery Method Room Air 10/15/24 09:46 Medical Decision Making MDM Narrative Medical decision making narrative: The patient urinalysis showed no acute pathology the patient just to continue his chronic pain management The patient is to follow up with primary care physician in next 2-3 days or to return to the emergency department should any of the signs or symptoms worsen or new symptoms develop. The patient agrees with the following Diagnosis and Treatment plan and the patient will be discharged home. Lab Data Labs: Lab Results 10/15/24 Range/Units 09:53 Urine Color Yellow (YELLOW) Urine Clarity Clear (CLEAR) Urine pH 5.5 (5.0-9.0) Ur Specific [place] >=1.030 A (1.005-1.025) Urine Protein Negative (NEG/TRACE) mg/dL Urine Glucose (UA) Negative (NEGATIVE) mg/dL Urine Ketones Negative (NEGATIVE) mg/dL Urine Occult Blood Negative (NEGATIVE) Urine Nitrite Negative (NEGATIVE) Urine Bilirubin Negative (NEGATIVE) Urine Urobilinogen 0.2 (0.2-1.0) EU/dL Ur Leukocyte Esterase Negative (NEGATIVE) Discharge Plan Discharge Chief Complaint: Back Pain/Injury Clinical Impression: Chronic back pain Patient Disposition: Home, Self-Care Time of Disposition Decision: 10:22 Condition: Good Prescriptions / Home Meds: No Action ciprofloxacin HCl 500 mg tablet 500 mg PO Q12H Qty: 14 0RF Print Language: South [place]ese Instructions: Back Pain (ED) Referrals: Physician,Non-Staff, MD [Primary Care Provider] - 1 week
== END 2024-10-15 10:32 | disposition home or self-care (01) ==
PROVIDERS: Emergency Provider Emergency Medicine
DX: M54.9 Dorsalgia, unspecified (principal); G89.29 Other chronic pain; F17.200 Nicotine dependence, unspecified, uncomplicated
CPT/HCPCS: 81003; 99283

== ENCOUNTER 2024-11-06 13:26 | Emergency (ER) | payer OTHER, SELFPAY ==
[2024-11-06 13:39] VITALS: BP 129/68; PULSE 60; TEMP 37; O2SAT 98; BMI 23.1
[2024-11-06 14:45] LABS: Bilirubin Urine NEGATIVE (NEGATIVE); Blood Urine TRACE-I (NEGATIVE); Clarity Urine CLEAR (CLEAR); Color Urine LT. YELLOW (YELLOW); Glucose Urine UA NEGATIVE (NEGATIVE); Ketones Urine NEGATIVE (NEGATIVE); Leukocyte Esterase Urine SMALL (NEGATIVE); Nitrite Urine NEGATIVE (NEGATIVE); Protein Urine TRACE mg/dL (NEG/TRACE); Specific Gravity Urine >=1.030 (1.005-1.025); Urobilinogen Urine 0.2 EU/dL (0.2-1.0)
[2024-11-06 14:46] LABS: Urine Microscopic Indicated YES
--- NOTE | 2024-11-06 15:00 | PC.NURSE ---
Complains of burining with urination.
[2024-11-06 15:01] VITALS: BP 113/65; PULSE 54; O2SAT 98
[2024-11-06 15:08] LABS: Bacteria Urine SMALL #/HPF (NONE SEEN); Cast Seen? NONE SEEN #/LPF (NONE SEEN); Crystals Seen? None Seen #/HPF (None Seen); Mucus Urine NONE SEEN (NONE SEEN); RBC Urine 0-2 #/HPF (0-2); Squamous Epithelial Cell Urine FEW #/LPF (NONE/RARE); WBC Urine 20-50 #/HPF (NONE SEEN)
[2024-11-06 15:09] LABS: Urine Culture Indicated YES
--- NOTE | 2024-11-06 15:14 | ED_ITS ---
HPI - Male Genitourinary General Chief complaint: Urogenital-Male Stated complaint: POSSIBLE UTI Time Seen by Provider: 11/06/24 14:58 Source: patient Mode of arrival: walk-in History of Present Illness HPI Narrative: Patient is a 54-year-old male with a history of recurrent urinary tract infections who presents to the emergency department for 2-day history of burning with urination. He denies any flank pain, back pain. He has multiple positive urine cultures with different bacteria from this emergency department previously. He has had no fevers or vomiting. He is requesting a urology referral due to the frequent UTIs. No medications taken prior to arrival. Related Data Previous Rx's ?Medication ?Instructions ?Recorded ciprofloxacin HCl 500 mg tablet 500 mg PO Q12H #14 tabs 09/02/24 ciprofloxacin HCl 500 mg tablet 500 mg PO Q12H #14 tabs 11/06/24 ondansetron 4 mg disintegrating 4 mg PO Q6H PRN nausea and 11/06/24 tablet vomiting #12 tabs Allergies Allergy/AdvReac Type Severity Reaction Status Date / Time No Known Drug Allergies Allergy Verified 09/02/24 20:25 Review of Systems ROS Constitutional Denies: fever or chills Ears, nose, mouth, and throat Denies: throat pain or nasal congestion Cardiovascular Denies: chest pain Respiratory Denies: shortness of breath or cough Gastrointestinal Denies: abdominal pain, nausea or vomiting Genitourinary Reports: painful urination and urinary urgency; Denies: blood in urine Musculoskeletal Denies: back pain Integumentary/Breast Denies: rash Neurological Denies: numbness in extremities or weakness in extremities Hematologic/Lymphatic Denies: easy bruising or easy bleeding PFSH PFS Social History Smoking status: Current every day smoker Little interest or pleasure in doing things: not at all Feeling down, depressed, or hopeless: not at all Exam Narrative Exam Narrative: Gen.: Awake, alert, in no distress Head: Normocephalic, atraumatic ENT: Moist mucous membranes Respiratory: No respiratory distress Gastrointestinal: Abdomen is soft, nondistended and nontender to palpation Back: No CVA or or flank tenderness Extremities: Moves extremities equally Psych: Normal mood and affect Neuro: No focal neuro deficit Skin: Warm, dry, intact Constitutional Vital Signs, click to edit/add: Last Vital Signs Temp 98.6 F 11/06/24 13:39 Pulse 54 L 11/06/24 15:01 Resp 18 11/06/24 15:01 BP 113/65 11/06/24 15:01 Pulse Ox 98 11/06/24 15:01 O2 Del Method Room Air 11/06/24 15:01 Course Vital Signs Vital signs: Vital Signs Temperature 98.6 F 11/06/24 13:39 Pulse Rate 60 11/06/24 13:39 Respiratory Rate 16 11/06/24 13:39 Blood Pressure 129/68 11/06/24 13:39 Pulse Oximetry 98 11/06/24 13:39 Oxygen Delivery Method Room Air 11/06/24 13:39 Temperature 98.6 F 11/06/24 13:39 Pulse Rate 54 L 11/06/24 15:01 Respiratory Rate 18 11/06/24 15:01 Blood Pressure 113/65 11/06/24 15:01 Pulse Oximetry 98 11/06/24 15:01 Oxygen Delivery Method Room Air 11/06/24 15:01 MDM - Male Genitourinary MDM Narrative Medical decision making narrative: Urine specimen shows urinary tract infection. Patient is hemodynamically stable with no other focal medical complaints at this time. He is referred to urology and strongly encouraged to be reevaluated by urology due to frequent UTIs. Cipro, Zofran given for home. Follow-up with urology and return to the ER if symptoms change or worsen SUPERVISED APC VISIT, PHYSICIAN ATTESTATION: Based on the medical record the care appears appropriate. ? Medical Records Attestation: I reviewed the patient's medical records. Lab Data Attestation: I reviewed the patient's lab results. Labs: Lab Results 11/06/24 Range/Units 13:42 Urine Color Lt. yellow (YELLOW) Urine Clarity Clear (CLEAR) Urine pH 7.0 (5.0-9.0) Ur Specific [place] >=1.030 A (1.005-1.025) Urine Protein Trace (NEG/TRACE) mg/dL Urine Glucose (UA) Negative (NEGATIVE) mg/dL Urine Ketones Negative (NEGATIVE) mg/dL Urine Occult Blood Trace-i (NEGATIVE) Urine Nitrite Negative (NEGATIVE) Urine Bilirubin Negative (NEGATIVE) Urine Urobilinogen 0.2 (0.2-1.0) EU/dL Ur Leukocyte Esterase Small A (NEGATIVE) Urine RBC 0-2 (0-2) #/HPF Urine WBC 20-50 A (NONE SEEN) #/HPF Ur Squamous Epith Cells Few A (NONE/RARE) #/LPF Urine Crystals None seen (None Seen) #/HPF Urine Bacteria Small A (NONE SEEN) #/HPF Urine Casts None seen (NONE SEEN) #/LPF Urine Mucus None seen (NONE SEEN) Ur Culture Indicated? Yes Discharge Plan Discharge Chief Complaint: Urogenital-Male Clinical Impression: Acute UTI Patient Disposition: Home, Self-Care Time of Disposition Decision: 15:11 Condition: Good Mode of Transportation: Private Vehicle Prescriptions / Home Meds: New ciprofloxacin HCl 500 mg tablet 500 mg PO Q12H Qty: 14 0RF ondansetron 4 mg tablet,disintegrating 4 mg PO Q6H PRN (Reason: nausea and vomiting) Qty: 12 0RF No Action ciprofloxacin HCl 500 mg tablet 500 mg PO Q12H Qty: 14 0RF Print Language: Brazilian Instructions: Urinary Tract Infection in Men (ED) Referrals: Physician,Non-Staff, [Primary Care Provider] - 1 week Rakesh Streeter MD [Physician] - As needed Discharge Date/Time: 11/06/24 15:32
[2024-11-06] MEDS: CIPROFLOXACIN HCL 500 MG TABLET PO (15:29)
== END 2024-11-06 15:32 | disposition home or self-care (01) ==
PROVIDERS: Emergency Provider Emergency Medicine
DX: N39.0 Urinary tract infection, site not specified (principal); Z87.440 Personal history of urinary (tract) infections; F17.200 Nicotine dependence, unspecified, uncomplicated
CPT/HCPCS: 81001; 87086; 87186; 99283

== ENCOUNTER 2024-11-11 09:59 | Emergency (ER) | payer OTHER, SELFPAY ==
[2024-11-11 10:08] VITALS: BP 149/82; PULSE 70; TEMP 36.6; O2SAT 98; BMI 23.1
--- NOTE | 2024-11-11 10:22 | CT_ITS ---
[address] [address] Patient Name: WILL GANDARA MRN: [id number] date: 1970 Sex: M Assigned Patient Location: ER Current Patient Location: Accession/Order Number: [id number] Exam Date: 11/11/2024 10:47 Report Date: 11/11/2024 11:25 At the request of: [employer] Procedure: CT abdomen pelvis w con EXAM: CT abdomen pelvis w con HISTORY: r/o rectal or colon mass COMPARISON: None. TECHNIQUE: Axial CT imaging was performed through the abdomen and pelvis with intravenous contrast. Multiplanar reformats were performed. Dose reduction techniques were achieved by using automated exposure control and/or adjustment of mA and/or kV according to patient size and/or use of iterative reconstruction technique. FINDINGS: Lung bases: Lung bases are clear. No pleural effusion. GI upper: Unremarkable. Liver: Normal size and contour. Gallbladder: No significant abnormality. No cholelithiasis. Biliary system: No intra or extrahepatic biliary ductal dilatation. Spleen: Normal size. Pancreas: Unremarkable. Adrenal glands: Normal adrenal glands. Kidneys/ureters: Normal contours. No hydronephrosis. No nephrolithiasis or ureterolithiasis. Vessels: No aneurysm. Lymph Nodes: No lymphadenopathy. Small bowel: No wall thickening or dilatation. Colon: No wall thickening or dilatation. No rectal mass is noted. Moderate volume stool burden. A few sigmoid diverticulosis without evidence of acute diverticulitis. Appendix: No findings of appendicitis. Peritoneal cavity: No free fluid or pneumoperitoneum. Lower : Unremarkable. Bones: No acute bony abnormality. Soft tissues: No acute finding. Additional findings: None. CT/CT abdomen pelvis w con IMPRESSION: The study is not designed for rectal cancer screening. However, no definite rectal mass is noted. Correlation with colonoscopy is recommended if clinically warranted. No acute abnormality of the abdomen and pelvis. Constipation. A few sigmoid diverticulosis without evidence of acute diverticulitis. Electronically authenticated by: LACIE ANGLIN Date: 11/11/2024 11:25
--- NOTE | 2024-11-11 10:26 | ED.GENADUL1 ---
HPI HPI - General Adult General Chief complaint: Abdominal Pain Stated complaint: RECTAL PAIN Time Seen by Provider: 11/11/24 10:08 Source: patient Mode of arrival: walk-in History of Present Illness HPI narrative: Patient presents to ED complaining of constipation. Patient states he woke up this morning and had to have a bowel movement. He said he was straining to get the bowel movement out and actually had to get out with his finger. He said he has never had constipation in the past. He said he usually goes regularly but has noticed that it slowed down recently. No nausea vomiting no abdominal pain. He did notice after he got the stool out and had a slightly large bowel movement that there was blood on the tissue paper. He was concerned about this so he came in for further evaluation. Patient is a smoker. Has a history of UTI. Patient denies any back pain numbness or tingling in his legs. No difficulties with urination. He was concerned with the amount of constipation and then he said he felt like he had to push hard to even get gas out today. No other complaints at this time vital signs stable. Related Data Previous Rx's ?Medication ?Instructions ?Recorded ciprofloxacin HCl 500 mg tablet 500 mg PO Q12H #14 tabs 09/02/24 ondansetron 4 mg disintegrating 4 mg PO Q6H PRN nausea and 11/06/24 tablet vomiting #12 tabs Allergies Allergy/AdvReac Type Severity Reaction Status Date / Time No Known Drug Allergies Allergy Verified 11/11/24 10:08 Opioid HPI Opioid Management Most Recent Opioid Data: No Data to Display Review of Systems ROS Status of ROS 10 or more systems reviewed and unremarkable except as noted in history and below PFSH PFS Social History Smoking status: Current every day smoker Little interest or pleasure in doing things: not at all Feeling down, depressed, or hopeless: not at all Exam Narrative Exam Narrative: General: alert, no acute distress Cardiovascular: regular rate and rhythm, normal peripheral perfusion. Respiratory: Lungs CTA, respirations non labored. Extremities: no deformity, no trauma. Neurological: oriented x 4, LOC appropriate for age. Abdomen soft nontender nondistended. Rectal exam does not reveal any external hemorrhoids or large tears or active bleeding. Internal rectal exam does elicit some tenderness. No large mass felt on exam. Mildly enlarged prostate. Constitutional Vital Signs, click to edit/add: Last Vital Signs Temp 97.8 F 11/11/24 10:08 Pulse 70 11/11/24 10:08 Resp 16 11/11/24 10:08 BP 149/82 H 11/11/24 10:08 Pulse Ox 98 11/11/24 10:08 O2 Del Method Room Air 11/11/24 10:08 Course Vital Signs Vital signs: Vital Signs Temperature 97.8 F 11/11/24 10:08 Pulse Rate 70 11/11/24 10:08 Respiratory Rate 16 11/11/24 10:08 Blood Pressure 149/82 H 11/11/24 10:08 Pulse Oximetry 98 11/11/24 10:08 Oxygen Delivery Method Room Air 11/11/24 10:08 Temperature 97.8 F 11/11/24 10:08 Pulse Rate 70 11/11/24 10:08 Respiratory Rate 16 11/11/24 10:08 Blood Pressure 149/82 H 11/11/24 10:08 Pulse Oximetry 98 11/11/24 10:08 Oxygen Delivery Method Room Air 11/11/24 10:08 Medical Decision Making MDM Narrative Medical decision making narrative: I am aware that a CT scan is not the best test to rule out colon cancer however I felt on exam that his rectal area was possibly tight or lumpy. I wanted to make sure there was no obvious mass or stricture in the colon given the fact that his constipation is a newer issue per patient. He does not have a family doctor or a GI doctor so I did refer him. He does not have any acute obvious findings of rectal mass or colon mass on the CT scan. Labs are nonacute. He has never had a colonoscopy in the past. I told him to call and make an appointment for GI even if it is months from now he really needs a colonoscopy. Patient expresses understanding and states that he will follow-up outpatient. Return to ED if worsening symptoms. Differential Diagnosis Differential Diagnosis: Constipation stricture mass viral syndrome Lab Data Lab results reviewed: Yes I reviewed the patient's lab results Labs: Lab Results 11/11/24 Range/Units 10:30 WBC 4.7 (4.0-11.0) 10^3/uL RBC 4.10 L (4.70-6.10) 10^6/uL Hgb 13.6 L (14.0-18.0) g/dL Hct 38.8 L (42.0-54.0) % MCV 94.6 H (80.0-94.0) fL MCH 33.2 (25.9-34.0) pg MCHC 35.1 (29.9-35.2) g/dL RDW 12.5 (11.0-15.0) % Plt Count 222 (150-450) 10^3/uL MPV 9.8 (9.5-13.5) fL Neut % (Auto) 51.1 (43.0-75.0) % Lymph % (Auto) 28.6 (20.5-60.0) % [place] % (Auto) 10.8 (1.7-12.0) % Eos % (Auto) 8.2 H (0.9-7.0) % Baso % (Auto) 1.1 (0.2-2.0) % Neut # (Auto) 2.4 (1.4-6.5) 10^3/uL Lymph # (Auto) 1.3 (1.2-3.8) 10^3/uL [place] # (Auto) 0.5 (0.3-0.8) 10^3/uL Eos # (Auto) 0.4 (0.0-0.7) 10^3/uL Baso # (Auto) 0.1 (0.0-0.1) 10^3/uL Abs Immat Gran (auto) 0.01 (0.00-0.03) 10^3/uL Imm/Tot Granulo (auto) 0.2 (0.0-0.5) % Sodium 142 (136-145) mmol/L Potassium 4.3 (3.5-5.1) mmol/L Chloride 106 (98-107) mmol/L Carbon Dioxide 29.0 (21.0-32.0) mmol/L Anion Gap 11.3 BUN 12.0 (7.0-18.0) mg/dL Creatinine 0.85 (0.70-1.30) mg/dL Est GFR ( Amer) >60 (>=60 mL/min/1.73m^2) Est GFR (Non-Af Amer) >60 (>=60 mL/min/1.73m^2) BUN/Creatinine Ratio 14.1 Glucose 105 (74-106) mg/dL Calcium 8.1 L (8.5-10.1) mg/dL Total Bilirubin 0.4 (0.2-1.0) mg/dL AST 14 L (15-37) U/L ALT 22 (16-63) U/L Alkaline Phosphatase 49 (46-116) U/L Total Protein 6.1 L (6.4-8.2) g/dL Albumin 3.4 (3.4-5.0) g/dL Globulin 2.7 g/dL Albumin/Globulin Ratio 1.[address] scan - abdomen: Radiologist's impression: ITS Impressions Abdomen/Pelvis CT 11/11/24 10:22 IMPRESSION: The study is not designed for rectal cancer screening. However, no definite rectal mass is noted. Correlation with colonoscopy is recommended if clinically warranted. No acute abnormality of the abdomen and pelvis. Constipation. A few sigmoid diverticulosis without evidence of acute diverticulitis. Electronically authenticated by: LACIE ANGLIN Date: 11/11/2024 11:25 Discharge Plan Discharge Chief Complaint: Abdominal Pain Clinical Impression: Constipation Patient Disposition: Home, Self-Care Time of Disposition Decision: 11:30 Condition: Good Mode of Transportation: Private Vehicle Prescriptions / Home Meds: No Action ciprofloxacin HCl 500 mg tablet 500 mg PO Q12H Qty: 14 0RF ondansetron 4 mg tablet,disintegrating 4 mg PO Q6H PRN (Reason: nausea and vomiting) Qty: 12 0RF Print Language: [place]guillan Instructions: Constipation (ED) Referrals: BRENNA SOLITARIO [Physician] - 1 week Physician,Non-Staff, [Primary Care Provider] - 1 week
--- OUTSIDE RECORDS SUMMARY | 2024-11-11 10:31 | XMS_ITS | CCD ---
Author Organization [facility] Care Team Providers Care Channel Process Supervisor Name Role Phone PAY ., DR ZEPEDA [...] Bilirubin Ql (U) Negative Normal NEGATIVE [facility] Comment on above: Performed By: #### E RUR #### [facility] [address] [place] [address] Dr. Norbert Mcclure Clarity (U) CLEAR Normal CLEAR [facility] Comment on above: Performed By: #### E RUR #### [facility] [address] [place] [address] Dr. Norbert Mcclure Color (U) YELLOW Normal YELLOW [facility] Comment on above: Performed By: #### E RUR #### [facility] [address] [place] [address] Dr. Norbert SENA A micrscopic examination will be performed if indicated. Normal [facility] Comment on above: Performed By: #### E RUR #### [facility] [address] [place] [address] Dr. Norbert Mcclure Glucose Ql (U) Negative Normal NEGATIVE [facility] Comment on above: Performed By: #### E RUR #### [facility] [address] [place] [address] Dr. Norbert Mcclure Hemoglobin Ql (U) Negative Normal NEGATIVE [facility] Comment on above: Performed By: #### E RUR #### [facility] [address] [place] [address] Dr. Norbert Mcclure Ketones Ql (U) Negative Normal NEGATIVE The [facility] Comment on above: Performed By: #### E RUR #### [facility] [address] [place] [address] Dr. Norbert Mcclure LEUKOCYTES Negative Normal NEGATIVE [facility] Comment on above: Performed By: #### E RUR #### [facility] [address] [place] [address] Dr. Norbert Mcclure Nitrite Ql (U) Negative Normal NEGATIVE [facility] Comment on above: Performed By: #### E RUR #### [facility] [address] [place] [address] Dr. Norbert Mcclure pH (U) 6.0 [pH] Normal 5-9 [facility] Comment on above: Performed By: #### E RUR #### [facility] [address] [place] [address] Dr. Norbert Mcclure SPEC GRAVITY 1.010 Normal 1.005-<=1.025 [facility] Comment on above: Performed By: #### E RUR #### [facility] [address] [place] [address] Dr. Norbert Mcclure UA PROTEIN Negative Normal NEGATIVE/ TRACE [facility] Comment on above: Performed By: #### E RUR #### [facility] [address] [place] [address] Dr. Norbert Mcclure UR MICRO IND NOT INDICATED Normal [facility] Comment on above: Performed By: #### E RUR #### [facility] [address] [place] [address] Dr. Norbert Mcclure Urobilinogen Qn (U) 0.2 {Dara'U}/dL Normal 0.2 - 1. 0 [facility] Comment on above: Performed By: #### E RUR #### [facility] [address] [place] [address] Dr. Norbert Mcclure XR LSPINE 2_3 VIEWSon [...] ELIZABETH CHOW Date: 2022-05-22 10:10 Normal [facility] Encounters Encounter Date Encounter Type Care Provider Facility Start: 12-03-2022 End: 12-03-[address] KATELYN NEW . Facility: Start: 05-22-2022 End: 05-22-[address] NONE LISTED REQUEST Facility: Start: 03-27-2022 End: 03-27-[address] NONE LISTED REQUEST Facility: Start: 02-21-2022 End: 02-21-[address] NONE LISTED REQUEST Facility: Payers Date Payer Category Payer Unknown [id number] 2.16.84 [id number] 1970 Unknown [id number] 2.16.84 [id number] 1970 Unknown [id number] 2.16.84 [id number] 1970 Unknown [id number] 2.16.84 [id number] 1959 Unknown [id number] 1959 Unknown [id number] Clinical Note 03-27-2022 Note Date & Type [...] authenticated by: GLENN VELA Date: 2022-03-27 10:58 [facility] Summary Purpose Family History No Family History Records Found Advance Directives No Advanced Directives Records Found Additional Source Comments (unrecognized sect ion and content) No Status Records Found INFORMATION SOURCE (unrecogn ized section and content) DATE CREATED AUTHOR 01/16/2023 The [facility] FOR RECORDS PERTAINING TO PATIENTS [...] BE BASED ON THE PRIMARY CLINICAL RECORDS. [facility]. provides no warranty or guarantee of the accuracy or completeness of information in this document.
[2024-11-11 10:41] LABS: Basophils Absolute Auto 0.1 10^3/uL (0.0-0.1); Basophils Percent Auto 1.1 % (0.2-2.0); Eosinophils Absolute Auto 0.4 10^3/uL (0.0-0.7); Eosinophils Percent Auto 8.2 % (0.9-7.0); Hematocrit 38.8 % (42.0-54.0); Hemoglobin 13.6 g/dL (14.0-18.0); Immature Granulocytes Abs Auto 0.01 10^3/uL (0.00-0.03); Immature Granulocytes Pct Auto 0.2 % (0.0-0.5); Lymphocytes Absolute Auto 1.3 10^3/uL (1.2-3.8); Lymphocytes Percent Auto 28.6 % (20.5-60.0); Mean Corpuscular HGB Conc 35.1 g/dL (29.9-35.2); Mean Corpuscular Hemoglobin 33.2 pg (25.9-34.0); Mean Corpuscular Volume 94.6 fL (80.0-94.0); Mean Platelet Volume 9.8 fL (9.5-13.5); Monocytes Absolute Auto 0.5 10^3/uL (0.3-0.8); Monocytes Percent Auto 10.8 % (1.7-12.0); Neutrophils Absolute Auto 2.4 10^3/uL (1.4-6.5); Neutrophils Percent Auto 51.1 % (43.0-75.0); Platelet Count 222 10^3/uL (150-450); Red Cell Distribution Width 12.5 % (11.0-15.0); White Blood Count 4.7 10^3/uL (4.0-11.0)
[2024-11-11 10:57] LABS: Alanine Aminotransferase 22 U/L (16-63); Albumin Globulin Ratio 1.3; Albumin Level 3.4 g/dL (3.4-5.0); Alkaline Phosphatase 49 U/L (46-116); Anion Gap 11.3; Aspartate Amino Transferase 14 U/L (15-37); BUN Creatinine Ratio 14.1; Bilirubin Total 0.4 mg/dL (0.2-1.0); Calcium 8.1 mg/dL (8.5-10.1); Chloride 106 mmol/L (98-107); Estimated GFR (African America >60 (>=60 mL/min/1.73m^2); Estimated GFR (Non-African Ame >60 (>=60 mL/min/1.73m^2); Globulin 2.7 g/dL; Glucose 105 mg/dL (74-106); Potassium 4.3 mmol/L (3.5-5.1); Sodium 142 mmol/L (136-145); Total Protein 6.1 g/dL (6.4-8.2)
== END 2024-11-11 12:06 | disposition home or self-care (01) ==
PROVIDERS: Emergency Provider Emergency Medicine
DX: K59.00 Constipation, unspecified (principal); F17.200 Nicotine dependence, unspecified, uncomplicated; Z87.440 Personal history of urinary (tract) infections; K57.30 Diverticulosis of large intestine without perforation or abscess without bleeding
CPT/HCPCS: 36415; 74177; 80053; 85025; 99285; Q9967

== ENCOUNTER 2024-12-10 21:46 | Emergency (ER) | payer OTHER, SELFPAY ==
[2024-12-10 21:51] VITALS: BP 135/80; PULSE 68; TEMP 36.4; O2SAT 100; BMI 23.1
--- OUTSIDE RECORDS SUMMARY | 2024-12-10 21:55 | XMS_ITS | CCD ---
Author Organization [facility] Care Team Providers Care Web Applications Programmer Name Role Phone PAY ., DR ZEPEDA [...] Bilirubin Ql (U) Negative Normal NEGATIVE [facility] Comment on above: Performed By: #### E RUR #### [facility] [address] [place] [address] Dr. Norbert Mcclure Clarity (U) CLEAR Normal CLEAR [facility] Comment on above: Performed By: #### E RUR #### [facility] [address] [place] [address] Dr. Norbert Mcclure Color (U) YELLOW Normal YELLOW [facility] Comment on above: Performed By: #### E RUR #### [facility] [address] [place] [address] Dr. Norbert SENA A micrscopic examination will be performed if indicated. Normal [facility] Comment on above: Performed By: #### E RUR #### [facility] [address] [place] [address] Dr. Norbert Mcclure Glucose Ql (U) Negative Normal NEGATIVE [facility] Comment on above: Performed By: #### E RUR #### [facility] [address] [place] [address] Dr. Norbert Mcclure Hemoglobin Ql (U) Negative Normal NEGATIVE The [facility] Comment on above: Performed By: #### E RUR #### [facility] [address] [place] [address] Dr. Norbert Mcclure Ketones Ql (U) Negative Normal NEGATIVE The [facility] Comment on above: Performed By: #### E RUR #### [facility] [address] [place] [address] Dr. Norbert Mcclure LEUKOCYTES Negative Normal NEGATIVE [facility] Comment on above: Performed By: #### E RUR #### [facility] [address] [place] [address] Dr. Norbert Mcclure Nitrite Ql (U) Negative Normal NEGATIVE [facility] Comment on above: Performed By: #### E RUR #### [facility] [address] [place] [address] Dr. Norbert Mcclure pH (U) 6.0 [pH] Normal 5-9 [facility] Comment on above: Performed By: #### E RUR #### [facility] [address] [place] [address] Dr. Norbert Mcclure SPEC GRAVITY 1.010 Normal 1.005-<=1.025 The [facility] Comment on above: Performed By: #### E RUR #### [facility] [address] [place] [address] Dr. Norbert Mcclure UA PROTEIN Negative Normal NEGATIVE/ TRACE [facility] Comment on above: Performed By: #### E RUR #### [facility] [address] [place] [address] Dr. Norbert Mcclure UR MICRO IND NOT INDICATED Normal [facility] Comment on above: Performed By: #### E RUR #### [facility] [address] [place] [address] Dr. Norbert Mcclure Urobilinogen Qn (U) 0.2 {Dara'U}/dL Normal 0.2 - 1. 0 [facility] Comment on above: Performed By: #### E RUR #### [facility] [address] [place] [address] Dr. Norbert Mcclure XR LSPINE 2_3 VIEWSon [...] ELIZABETH CHOW Date: 2022-05-22 10:10 Normal [facility] Encounters Encounter Date Encounter Type Care Provider Facility Start: 12-03-2022 End: 12-03-[address] KATELYN NEW . Facility: Start: 05-22-2022 End: 05-22-[address] NONE LISTED REQUEST Facility: Start: 03-27-2022 End: 03-27-[address] NONE LISTED REQUEST Facility: Start: 02-21-2022 End: 02-21-[address] NONE LISTED REQUEST Facility: Payers Date Payer Category Payer Unknown [id number] 2.16.84 [id number] 1970 Unknown [id number] 2.16.84 [id number] 1970 Unknown [id number] 2.16.84 [id number] 1970 Unknown [id number] 2.16.84 [id number] 1959 Unknown [id number] 1959 Unknown [id number] Clinical Note 03-27-2022 Note Date & Type [...] authenticated by: GLENN VELA Date: 2022-03-27 10:58 [facility] Summary Purpose Family History No Family History Records Found Advance Directives No Advanced Directives Records Found Additional Source Comments (unrecognized sect ion and content) No Status Records Found INFORMATION SOURCE (unrecogn ized section and content) DATE CREATED AUTHOR 01/16/2023 The [facility] FOR RECORDS PERTAINING TO PATIENTS WHO [...] BE BASED ON THE PRIMARY CLINICAL RECORDS. [facility]. provides no warranty or guarantee of the accuracy or completeness of information in this document.
[2024-12-10 22:08] LABS: Bilirubin Urine NEGATIVE (NEGATIVE); Blood Urine SMALL (NEGATIVE); Clarity Urine CLEAR (CLEAR); Color Urine LT. YELLOW (YELLOW); Glucose Urine UA NEGATIVE (NEGATIVE); Ketones Urine NEGATIVE (NEGATIVE); Leukocyte Esterase Urine MODERATE (NEGATIVE); Nitrite Urine NEGATIVE (NEGATIVE); Protein Urine 30 mg/dL (NEG/TRACE); Specific Gravity Urine 1.025 (1.005-1.025); Urobilinogen Urine 0.2 EU/dL (0.2-1.0)
[2024-12-10 22:09] LABS: Bacteria Urine SMALL #/HPF (NONE SEEN); Crystals Seen? None Seen #/HPF (None Seen); Mucus Urine NONE SEEN (NONE SEEN); RBC Urine 0-2 #/HPF (0-2); Squamous Epithelial Cell Urine NONE SEEN #/LPF (NONE/RARE); WBC Urine 50-75 #/HPF (NONE SEEN)
[2024-12-10 22:10] LABS: Cast Seen? NONE SEEN #/LPF (NONE SEEN); Urine Culture Indicated YES-FRMC
--- NOTE | 2024-12-10 22:39 | ED.MALEGU1 ---
HPI - Male Genitourinary General Chief complaint: Urogenital-Male Stated complaint: TROUBLE URINATING Time Seen by Provider: 12/10/24 22:27 Source: patient Mode of arrival: walk-in History of Present Illness HPI Narrative: This 54-year-old male who has had several urinary tract infections in the past 2 years presents for evaluation of urinary frequency urgency and dysuria. He was last seen here in November 06. His urine was positive for coag negative staph that was sensitive to Bactrim at that time. It was also coag negative staph that was sensitive to Bactrim on 09/02/2024. He denies any flank pain. He denies any fevers or chills. He denies any nausea or vomiting. Related Data Previous Rx's ?Medication ?Instructions ?Recorded ciprofloxacin HCl 500 mg tablet 500 mg PO Q12H #14 tabs 09/02/24 ondansetron 4 mg disintegrating 4 mg PO Q6H PRN nausea and 11/06/24 tablet vomiting #12 tabs Allergies Allergy/AdvReac Type Severity Reaction Status Date / Time No Known Drug Allergies Allergy Verified 11/11/24 10:08 Review of Systems ROS Status of ROS 10 or more systems reviewed and unremarkable except as noted in history and below PFSH PFS Social History Smoking status: Current every day smoker Little interest or pleasure in doing things: not at all Feeling down, depressed, or hopeless: not at all Exam Narrative Exam Narrative: Vital signs and Nursing Notes reviewed: Patient is afebrile with a normal pulse, normal blood pressure, he is not hypoxic with pulse ox of 100% on room air General: Awake, alert, oriented, no acute distress, lying comfortably on the stretcher HEENT: Normocephalic atraumatic, mucous membranes are moist and pink, eyes are clear, normal conjunctiva, vision is grossly intact Chest: Lungs are clear to auscultation with good air entry, there is no wheezing rhonchi or rales appreciated no accessory muscle use, patient is speaking in complete sentences-no chest wall tenderness to palpation CVS: Regular rate and rhythm S1-S2, no murmurs rubs or gallops, pulses are brisk and equal bilaterally ABD: Soft, nondistended, nontender, no rebound guarding or rigidity, bowel sounds are normal, no pulsatile masses appreciated, no CVA tenderness Extremities: Moving all extremities, no lower extremity tenderness or swelling noted Skin: Normal in appearance without rash,pallor, petechiae or purpura Neuro: No focal deficits Constitutional Vital Signs, click to edit/add: Last Vital Signs Temp 97.6 F 12/10/24 21:51 Pulse 68 12/10/24 21:51 Resp 14 12/10/24 23:00 BP 135/80 12/10/24 21:51 Pulse Ox 100 12/10/24 21:51 O2 Del Method Room Air 12/10/24 21:51 Course Vital Signs Vital signs: Vital Signs Temperature 97.6 F 12/10/24 21:51 Pulse Rate 68 12/10/24 21:51 Respiratory Rate 14 12/10/24 21:51 Blood Pressure 135/80 12/10/24 21:51 Pulse Oximetry 100 12/10/24 21:51 Oxygen Delivery Method Room Air 12/10/24 21:51 Temperature 97.6 F 12/10/24 21:51 Pulse Rate 68 12/10/24 21:51 Respiratory Rate 14 12/10/24 23:00 Blood Pressure 135/80 12/10/24 21:51 Pulse Oximetry 100 12/10/24 21:51 Oxygen Delivery Method Room Air 12/10/24 21:51 MDM - Male Genitourinary MDM Narrative Medical decision making narrative: This 54-year-old male who has had frequent urinary tract infections presents for evaluation of urinary frequency urgency and dysuria. He has not noticed any hematuria. I reviewed his records from previous ER visits. He has had multiple urinary tract infections in the past year. Most recently his last 2 urine cultures were coag negative staph that was sensitive to Bactrim. He denies any flank pain or fever. He has no nausea or vomiting. He has no abdominal pain. He will be medicated emergency department with a dose of Bactrim and Pyridium. He will be discharged home with prescriptions for the same. He is encouraged to drink plenty of fluids and will be referred to outpatient urology. Lab Data Labs: Lab Results 12/10/24 Range/Units 22:05 Urine Color Lt. yellow (YELLOW) Urine Clarity Clear (CLEAR) Urine pH 6.0 (5.0-9.0) Ur Specific [place] 1.025 (1.005-1.025) Urine Protein 30 A (NEG/TRACE) mg/dL Urine Glucose (UA) Negative (NEGATIVE) mg/dL Urine Ketones Negative (NEGATIVE) mg/dL Urine Occult Blood Small A (NEGATIVE) Urine Nitrite Negative (NEGATIVE) Urine Bilirubin Negative (NEGATIVE) Urine Urobilinogen 0.2 (0.2-1.0) EU/dL Ur Leukocyte Esterase Moderate A (NEGATIVE) Urine RBC 0-2 (0-2) #/HPF Urine WBC 50-75 A (NONE SEEN) #/HPF Ur Squamous Epith Cells None seen (NONE/RARE) #/LPF Urine Crystals None seen (None Seen) #/HPF Urine Bacteria Small A (NONE SEEN) #/HPF Urine Casts None seen (NONE SEEN) #/LPF Urine Mucus None seen (NONE SEEN) Ur Culture Indicated? Yes-[facility] [place] Discharge Plan Discharge Chief Complaint: Urogenital-Male Clinical Impression: Acute UTI Patient Disposition: Home, Self-Care Time of Disposition Decision: 22:37 Condition: Good Prescriptions / Home Meds: No Action ciprofloxacin HCl 500 mg tablet 500 mg PO Q12H Qty: 14 0RF ondansetron 4 mg tablet,disintegrating 4 mg PO Q6H PRN (Reason: nausea and vomiting) Qty: 12 0RF Print Language: Kyrgyz Instructions: Urinary Tract Infection in Men (ED) Referrals: Ida Moore MD [Physician] - 1 week Physician,Non-Staff, [Primary Care Provider] - 1 week Discharge Date/Time: 12/10/24 23:03
[2024-12-10] MEDS: PHENAZOPYRIDINE 100 MG TABLET 200 MG PO (22:52)
[2024-12-10] MEDS: SULFAMETHOXAZOLE/TRIMETHOPRIM 800-160 MG TABLET 1 TAB PO (22:53)
== END 2024-12-10 23:03 | disposition home or self-care (01) ==
PROVIDERS: Emergency Provider Emergency Medicine
DX: N39.0 Urinary tract infection, site not specified (principal); Z87.440 Personal history of urinary (tract) infections; F17.200 Nicotine dependence, unspecified, uncomplicated
CPT/HCPCS: 81001; 87086; 87150; 87186; 99284

== ENCOUNTER 2025-01-17 08:54 | Emergency (ER) | payer OTHER, SELFPAY ==
[2025-01-17 08:57] VITALS: BP 118/79; PULSE 65; TEMP 36.9; O2SAT 98; BMI 23.7
--- OUTSIDE RECORDS SUMMARY | 2025-01-17 08:59 | XMS_ITS | CCD ---
Author Organization [facility] Care Team Providers Care Process Expert Name Role Phone PAY ., DR ZEPEDA Consulting Unavailable PAY ., DR ZEPEDA Admitting Unavailable REQUEST, DR IGLESIAS LISTED Primary Care Unavaila ble PAY ., [...] Unavailable HAY ., DR VILLALBA Consulting Unavailable Marker DOIrina Attending Provider Irina Nagel Attending Unavailable Marker, Irina Pierce Admitting Unavailable Problems Active Problems Problem Classification Problem [...] Name Value Interpretation Reference Range Facil ity Urine Cultureon 12-10-2024 Bacteria identified Cx Nom (U) ORGANISM: Staphylococcus epidermidis (O:STAEPI) [place] Count >100,000 Aerobic CONRADO Charge (PCMIC38) ---- SUSCEPTIBILITY --- ORGANISM: O:STAEPI ANTIBIOTIC INTERPRETATION CONRADO Ciprofloxacin R >2 Daptomycin S <0.5 Levofloxacin R >4 Linezolid S <1 Nitrofurantoin S <32 Oxacillin R >2 Penicillin R >2 Tetracycline R >8 Trimethoprim/Sulfamet hoxazole S <0.5 Vancomycin S 1 S = SUSCEPTIBLE I = INTERMEDIATE R = RESISTANT BLANK = DATA NOT AVAILABLE, OR DRUG NOT ADVISABLE OR TESTED R* = RESISTANCE DUE TO EXTENDED SPECTRUM BETA-LACTAMASES ESBL = EXTENDED SPECTRUM BETA-LACTAMASE TFG = THYMIDINE-DEPENDENT STRAIN TOM = BETA-LACTAMASE POSITIVE IB = INDUCIBLE BETA-LACTAMASE. APPEARS IN PLACE OF 'S' WITH SPECIES KNOWN TO POSSESS INDUCIBLE BETA-LACTAMASES. POTENTIALLY THEY MAY BECOME RESISTANT TO ALL B-LACTAM DRUGS. PERFORMED BY: [facility] [address] [place] [address] PATHOLOGIST CONSUMER MARKETING ANALYST DAPHNEY COTNE M.D. Normal The [facility] Comment on above: Performed By: #### C UU #### [facility] [address] ER URINE PROFILEon 3 Bilirubin Ql (U) Negative Normal NEGATIVE The [facility] Comment on above: Performed By: #### E RUR #### [facility] [address] [address] [address] Norbert Mcclure Clarity (U) CLEAR Normal CLEAR [facility] Comment on above: Performed By: #### E RUR #### [facility] [address] [place] [address] Dr. Norbert Mcclure Color (U) YELLOW Normal YELLOW [facility] Comment on above: Performed By: #### E RUR #### [facility] [address] [place] [address] Dr. Norbert SENA A micrscopic examination will be performed if indicated. Normal The [facility] Comment on above: Performed By: #### E RUR #### [facility] [address] [place] [address] Dr. Norbert Mcclure Glucose Ql (U) Negative Normal NEGATIVE [facility] Comment on above: Performed By: #### E RUR #### [facility] [address] [place] [address] Dr. Norbert Mcclure Hemoglobin Ql (U) Negative Normal NEGATIVE [facility] Comment on above: Performed By: #### E RUR #### [facility] [address] [place] [address] Dr. Norbert Mcclure Ketones Ql (U) Negative Normal NEGATIVE [facility] Comment on above: Performed By: #### E RUR #### [facility] [address] [place] [address] Dr. Norbert Mcclure LEUKOCYTES Negative Normal NEGATIVE [facility] Comment on above: Performed By: #### E RUR #### [facility] [address] [place] [address] Dr. Norbert Mcclure Nitrite Ql (U) Negative Normal NEGATIVE [facility] Comment on above: Performed By: #### E RUR #### [facility] [address] [place] [address] Dr. Norbert Mcclure pH (U) 6.0 [pH] Normal 5-[address] [facility] Comment on above: Performed By: #### E RUR #### [facility] [address] [place] [address] Dr. Norbert Mcclure SPEC GRAVITY 1.010 Normal 1.005-<=1.[address] [facility] Comment on above: Performed By: #### E RUR #### [facility] [address] [address] [address] Norbert Mcclure UA PROTEIN Negative Normal NEGATIVE/ TRACE [facility] Comment on above: Performed By: #### E RUR #### [facility] [address] [place] [address] Dr. Norbert Mcclure UR MICRO IND NOT INDICATED Normal [facility] Comment on above: Performed By: #### E RUR #### [facility] [address] [address] [address] Norbert Mcclure Urobilinogen Qn (U) 0.2 {Dara'U}/dL Normal 0.2 - 1. [address] [facility] Comment on above: Performed By: #### E RUR #### [facility] [address] [place] [address] Dr. Norbert Mcclure XR LSPINE 2_3 VIEWSon [...] ELIZABETH CHOW Date: 2022-05-22 10:[address] [facility] Encounters Encounter Date Encounter Type Care Provider Facility Start: 12-10-2024 End: 12-10-2024 ambulatory Irina Nagel [facility] Work Phone: Start: 12-10-2024 End: 12-10-2024 Departed Referred Irina Nagel DO Work Phone: [facility] Start: 12-03-2022 End: 12-03-[address] KATELYN NEW . Facility: Start: 05-22-2022 End: 05-22-[address] NONE LISTED REQUEST Facility: Start: 03-27-2022 End: 03-27-2022 ambulatory NONE LISTED REQUEST Facility:[facility] Start: 02-21-2022 End: 02-21-2022 ambulatory NONE LISTED REQUEST Facility: Plan of Treatment Date Care Activity Detail Author Start: 12-10-2024 Urine culture [facility] Start: 12-10-2024 Bacteria identified in Urine by Culture Urine Culture [facility] Payers Date Payer Category Payer Self-pay [id number] 1970 Unknown [id number] 2.16.84 [id number] 1970 Unknown [id number] 2.16.84 [id number] 1970 Unknown [id number] 2.16.84 [id number] 1970 Unknown [id number] 2.16.84 [id number] 1959 Unknown [id number] 1959 Unknown [id number] Unknown [employer] [id number] Unknown [id number] 2.16.8 [id number] Social History Date Type Detail Facility Tobacco smoking stat [facility] Unknown if ever smoked [facility] Work Phone: Start: 12-12-2024 Sex Male (finding) [facility] Start: 1970 Sex Assigned At Male F [facility] Clinical Note 03-27-2022 Note Date & [...] by: GLENN VELA Date: 2022-03-27 10:[address] [facility] Evaluation note Note Date & Type Note Facility Evaluation note No assessment information availa [facility] Work Phone: Summary Purpose Family History No Family History Records FoundNo Family History Records Found Advance Directives No Advanced Directives Records FoundNo Advanced Directives Records Found Additional Source Comments (unrecognized sect ion and content) No Status Records FoundNo Status Records Found INFORMATION SOURCE (unrecogn ized section and content) DATE CREATED AUTHOR 01/16/2023 [facility] DATE CREATED AUTHOR AUTHOR'S ORGANIZ ATION 12/13/2024 [facility] Care Teams (unrecognized sec tion and content) Team Status: Inactive Member Role Status Dates Irina Nagel DO Attending Provider Active Start: December 10, 2024 End: December 10, 2024 Goals (unrecognized section and content) Goals may be documented in a n alternate section FOR RECORDS PERTAINING TO PATIENTS WHO ARE [...] BE BASED ON THE PRIMARY CLINICAL RECORDS. [facility] [employer] provides no warranty or guarantee of the accuracy or completeness of information in this document.
--- NOTE | 2025-01-17 09:08 | ED_ITS ---
HPI HPI - General Adult General Chief complaint: Urogenital-Male Stated complaint: uti complaints Time Seen by Provider: 01/17/25 09:05 Source: patient Mode of arrival: walk-in History of Present Illness HPI narrative: 54-year-old male presents for dysuria and frequency of urination. He said it for a day and a half and he has had UTIs before and believes he has another 1. No gross hematuria or back pain. No abdominal pain fever or vomiting. He states he has not had sex in a long time and is not at all worried about an STD. Related Data Previous Rx's ?Medication ?Instructions ?Recorded ciprofloxacin HCl 500 mg tablet 500 mg PO Q12H #14 tabs 09/02/24 ondansetron 4 mg disintegrating 4 mg PO Q6H PRN nausea and 11/06/24 tablet vomiting #12 tabs cephalexin 500 mg capsule 500 mg PO TID 7 days #21 caps 01/17/25 Allergies Allergy/AdvReac Type Severity Reaction Status Date / Time No Known Drug Allergies Allergy Verified 11/11/24 10:08 Opioid HPI Opioid Management Most Recent Opioid Data: No Data to Display Review of Systems ROS Narrative A ten point review of systems is negative except as noted above. PFSH PFSH Social History Smoking status: Current every day smoker Little interest or pleasure in doing things: not at all Feeling down, depressed, or hopeless: not at all Exam Narrative Exam Narrative: Nurses note and vital signs reviewed and patient is not hypoxic. General: The patient appears well and in no apparent distress. Patient is resting comfortably on cart. Skin: Warm, dry, no pallor noted. There is no rash noted. Head: Normocephalic, atraumatic Eye: Normal conjunctiva, no drainage Ears, Nose, Mouth, and Throat: oral mucosa is moist. Nares patent. Cardiovascular: Regular Rate and Rhythm Respiratory: Patient is in no distress, no accessory muscle use, lungs are clear to auscultation, no wheezing, rales or rhonchi Back: non-tender GI: Soft and nontender Musculoskeletal: The patient has no evidence of calf tenderness, no pitting edema, symmetrical pulses noted bilaterally Neurological: A&O, normal speech Psychiatric: Cooperative Constitutional Vital Signs, click to edit/add: Last Vital Signs Temp 98.5 F 01/17/25 08:57 Pulse 65 01/17/25 08:57 Resp 18 01/17/25 08:57 BP 118/79 01/17/25 08:57 Pulse Ox 98 01/17/25 08:57 O2 Del Method Room Air 01/17/25 08:57 Course Vital Signs Vital signs: Vital Signs Temperature 98.5 F 01/17/25 08:57 Pulse Rate 65 01/17/25 08:57 Respiratory Rate 18 01/17/25 08:57 Blood Pressure 118/79 01/17/25 08:57 Pulse Oximetry 98 01/17/25 08:57 Oxygen Delivery Method Room Air 01/17/25 08:57 Temperature 98.5 F 01/17/25 08:57 Pulse Rate 65 01/17/25 08:57 Respiratory Rate 18 01/17/25 08:57 Blood Pressure 118/79 01/17/25 08:57 Pulse Oximetry 98 01/17/25 08:57 Oxygen Delivery Method Room Air 01/17/25 08:57 Medical Decision Making MDM Narrative Medical decision making narrative: UTI is identified on his urinalysis and a culture is pending. He was given his first dose of Keflex here and prescribed same. Treatment diagnosis and follow- up were discussed with the patient. Differential Diagnosis Differential Diagnosis: UTI, STD, pyelonephritis Lab Data Lab results reviewed: Yes I reviewed the patient's lab results Labs: Lab Results 01/17/25 Range/Units 09:02 Urine Color Lt. yellow (YELLOW) Urine Clarity Cloudy A (CLEAR) Urine pH 6.0 (5.0-9.0) Ur Specific [place] 1.020 (1.005-1.025) Urine Protein Trace (NEG/TRACE) mg/dL Urine Glucose (UA) Negative (NEGATIVE) mg/dL Urine Ketones Trace A (NEGATIVE) mg/dL Urine Occult Blood Small A (NEGATIVE) Urine Nitrite Negative (NEGATIVE) Urine Bilirubin Negative (NEGATIVE) Urine Urobilinogen 1.0 (0.2-1.0) EU/dL Ur Leukocyte Esterase Moderate A (NEGATIVE) Urine RBC 0-2 (0-2) #/HPF Urine WBC 50-75 A (NONE SEEN) #/HPF Ur Squamous Epith Cells Rare (NONE/RARE) #/LPF Ur Transition Epith Cell Rare A (NONE SEEN) #/LPF Urine Crystals None seen (None Seen) #/HPF Urine Bacteria Small A (NONE SEEN) #/HPF Urine Casts None seen (NONE SEEN) #/LPF Urine Mucus Small A (NONE SEEN) Ur Culture Indicated? Yes-[facility] [place] Discharge Plan Discharge Chief Complaint: Urogenital-Male Clinical Impression: Acute UTI Patient Disposition: Home, Self-Care Time of Disposition Decision: 09:26 Condition: Good Mode of Transportation: Private Vehicle Prescriptions / Home Meds: New cephalexin 500 mg capsule 500 mg PO TID 7 Days Qty: 21 0RF No Action ciprofloxacin HCl 500 mg tablet 500 mg PO Q12H Qty: 14 0RF ondansetron 4 mg tablet,disintegrating 4 mg PO Q6H PRN (Reason: nausea and vomiting) Qty: 12 0RF Print Language: Sierra Leonean Instructions: Urinary Tract Infection in Men (ED) Referrals: FELIPE COLIN [Primary Care Provider] - 1 week
[2025-01-17 09:17] LABS: Bilirubin Urine NEGATIVE (NEGATIVE); Blood Urine SMALL (NEGATIVE); Clarity Urine CLOUDY (CLEAR); Color Urine LT. YELLOW (YELLOW); Glucose Urine UA NEGATIVE (NEGATIVE); Ketones Urine TRACE mg/dL (NEGATIVE); Leukocyte Esterase Urine MODERATE (NEGATIVE); Nitrite Urine NEGATIVE (NEGATIVE); Protein Urine TRACE mg/dL (NEG/TRACE)
[2025-01-17 09:24] LABS: Bacteria Urine SMALL #/HPF (NONE SEEN); Cast Seen? NONE SEEN #/LPF (NONE SEEN); Crystals Seen? None Seen #/HPF (None Seen); Mucus Urine SMALL (NONE SEEN); RBC Urine 0-2 #/HPF (0-2); Squamous Epithelial Cell Urine RARE #/LPF (NONE/RARE); Transitional Epi Cells Urine RARE #/LPF (NONE SEEN); WBC Urine 50-75 #/HPF (NONE SEEN)
[2025-01-17 09:25] LABS: Urine Culture Indicated YES-FRMC
[2025-01-17] MEDS: CEPHALEXIN 500 MG CAPSULE PO (09:32)
== END 2025-01-17 09:36 | disposition home or self-care (01) ==
PROVIDERS: Emergency Provider Emergency Medicine; PCP Family Medicine
DX: N39.0 Urinary tract infection, site not specified (principal); Z87.440 Personal history of urinary (tract) infections; F17.200 Nicotine dependence, unspecified, uncomplicated
CPT/HCPCS: 81001; 87086; 87150; 87186; 99283

== ENCOUNTER 2025-02-21 12:21 | Emergency (ER) | payer OTHER, SELFPAY ==
[2025-02-21 12:24] VITALS: BP 136/82; PULSE 108; TEMP 36.9; O2SAT 96; BMI 22.6
--- NOTE | 2025-02-21 13:09 | ED.GENADUL1 ---
HPI HPI - General Adult General Chief complaint: Extremity Problem, Nontraumatic Stated complaint: SWELLING IN LEFT KNEE/POSSIBLE INJURY Time Seen by Provider: 02/21/25 12:29 Source: patient Mode of arrival: walk-in Limitations: no limitations History of Present Illness HPI narrative: This 54-year-old male states he noticed swelling behind the left knee this morning and then felt a popping sensation after which he has had pain at the back of the knee extending into the proximal calf. He states the area feels a little puffy. No other complaints are reported. Related Data Previous Rx's ?Medication ?Instructions ?Recorded ciprofloxacin HCl 500 mg tablet 500 mg PO Q12H #14 tabs 09/02/24 ondansetron 4 mg disintegrating 4 mg PO Q6H PRN nausea and 11/06/24 tablet vomiting #12 tabs cephalexin 500 mg capsule 500 mg PO TID 7 days #21 caps 01/17/25 Allergies Allergy/AdvReac Type Severity Reaction Status Date / Time No Known Drug Allergies Allergy Verified 11/11/24 10:08 Opioid HPI Opioid Management Most Recent Opioid Data: No Data to Display Review of Systems ROS Status of ROS 10 or more systems reviewed and unremarkable except as noted in history and below PFSH PFS Social History Smoking status: Current every day smoker Little interest or pleasure in doing things: not at all Feeling down, depressed, or hopeless: not at all Exam Narrative Exam Narrative: Patient appears nondistressed. Vital signs are stable. HEENT exam is normal to inspection. Neck is supple. Lung sounds are clear to auscultation bilaterally with good air entry. Heart has regular rate and rhythm. Abdomen is soft nontender. Examination of the lower extremities shows very small amount of pitting edema of the pretibial areas in the left leg. He does not have any appreciable calf tenderness, swelling, redness or palpable cords. No lumps are felt over the popliteal fossa where he initially had noticed swelling. There is no effusion in the left knee and range of motion is full and free. Neurovascular function is intact distally. Constitutional Vital Signs, click to edit/add: Last Vital Signs Temp 98.4 F 02/21/25 12:24 Pulse 108 H 02/21/25 12:24 Resp 18 02/21/25 12:24 BP 136/82 02/21/25 12:24 Pulse Ox 96 02/21/25 12:24 Course Vital Signs Vital signs: Vital Signs Temperature 98.4 F 02/21/25 12:24 Pulse Rate 108 H 02/21/25 12:24 Respiratory Rate 18 02/21/25 12:24 Blood Pressure 136/82 02/21/25 12:24 Pulse Oximetry 96 02/21/25 12:24 Temperature 98.4 F 02/21/25 12:24 Pulse Rate 108 H 02/21/25 12:24 Respiratory Rate 18 02/21/25 12:24 Blood Pressure 136/82 02/21/25 12:24 Pulse Oximetry 96 02/21/25 12:24 Medical Decision Making MDM Narrative Medical decision making narrative: Patient presents with a history of swelling in the popliteal fossa that has resolved with now noticeable edema of the mid and distal left lower leg. His dimer is negative. His presentation is very suspicious for a ruptured Hardy's cyst. No further intervention is indicated at this time. X-ray of the left knee showed mild degenerative changes. Patient is advised to take ibuprofen for pain as needed and seek follow-up with PCP of choice. He may return for worsening symptoms Lab Data Labs: Lab Results 02/21/25 Range/Units 13:31 WBC 7.8 (4.0-11.0) 10^3/uL RBC 4.56 L (4.70-6.10) 10^6/uL Hgb 14.9 (14.0-18.0) g/dL Hct 42.6 (42.0-54.0) % MCV 93.4 (80.0-94.0) fL MCH 32.7 (25.9-34.0) pg MCHC 35.0 (29.9-35.2) g/dL RDW 12.6 (11.0-15.0) % Plt Count 254 (150-450) 10^3/uL MPV 9.6 (9.5-13.5) fL Neut % (Auto) 75.3 H (43.0-75.0) % Lymph % (Auto) 15.7 L (20.5-60.0) % [place] % (Auto) 6.8 (1.7-12.0) % Eos % (Auto) 1.3 (0.9-7.0) % Baso % (Auto) 0.6 (0.2-2.0) % Neut # (Auto) 5.8 (1.4-6.5) 10^3/uL Lymph # (Auto) 1.2 (1.2-3.8) 10^3/uL [place] # (Auto) 0.5 (0.3-0.8) 10^3/uL Eos # (Auto) 0.1 (0.0-0.7) 10^3/uL Baso # (Auto) 0.1 (0.0-0.1) 10^3/uL Abs Immat Gran (auto) 0.02 (0.00-0.03) 10^3/uL Imm/Tot Granulo (auto) 0.3 (0.0-0.5) % D-Dimer 0.33 (<=0.59) mg/L FEU Sodium 138 (136-145) mmol/L Potassium 4.4 (3.5-5.1) mmol/L Chloride 103 (98-107) mmol/L Carbon Dioxide 25.7 (21.0-32.0) mmol/L Anion Gap 13.7 BUN 9.0 (7.0-18.0) mg/dL Creatinine 0.88 (0.70-1.30) mg/dL Est GFR ( Amer) >60 (>=60 mL/min/1.73m^2) Est GFR (Non-Af Amer) >60 (>=60 mL/min/1.73m^2) BUN/Creatinine Ratio 10.2 Glucose 74 (74-106) mg/dL Uric Acid 5.9 (3.5-7.2) mg/dL Calcium 8.5 (8.5-10.1) mg/dL Total Bilirubin 0.4 (0.2-1.0) mg/dL AST 18 (15-37) U/L ALT 17 (16-63) U/L Alkaline Phosphatase 64 (46-116) U/L Total Protein 6.6 (6.4-8.2) g/dL Albumin 3.8 (3.4-5.0) g/dL Globulin 2.8 g/dL Albumin/Globulin Ratio 1.4 Discharge Plan Discharge Chief Complaint: Extremity Problem, Nontraumatic Clinical Impression: Hardy's cyst, ruptured Patient Disposition: Home, Self-Care Time of Disposition Decision: 15:14 Mode of Transportation: Private Vehicle Prescriptions / Home Meds: No Action ciprofloxacin HCl 500 mg tablet 500 mg PO Q12H Qty: 14 0RF ondansetron 4 mg tablet,disintegrating 4 mg PO Q6H PRN (Reason: nausea and vomiting) Qty: 12 0RF cephalexin 500 mg capsule 500 mg PO TID 7 Days Qty: 21 0RF Print Language: Panamanian Instructions: Hardy Cyst (ED) Additional Instructions: Ibuprofen 400 mg 3 times a day for pain as needed. Return for worsening symptoms. Referrals: FELIPE COLIN [Primary Care Provider] - 1 week
[2025-02-21 13:42] LABS: Basophils Absolute Auto 0.1 10^3/uL (0.0-0.1); Basophils Percent Auto 0.6 % (0.2-2.0); Eosinophils Absolute Auto 0.1 10^3/uL (0.0-0.7); Eosinophils Percent Auto 1.3 % (0.9-7.0); Hematocrit 42.6 % (42.0-54.0); Hemoglobin 14.9 g/dL (14.0-18.0); Immature Granulocytes Abs Auto 0.02 10^3/uL (0.00-0.03); Immature Granulocytes Pct Auto 0.3 % (0.0-0.5); Lymphocytes Absolute Auto 1.2 10^3/uL (1.2-3.8); Lymphocytes Percent Auto 15.7 % (20.5-60.0); Mean Corpuscular Hemoglobin 32.7 pg (25.9-34.0); Mean Corpuscular Volume 93.4 fL (80.0-94.0); Mean Platelet Volume 9.6 fL (9.5-13.5); Monocytes Absolute Auto 0.5 10^3/uL (0.3-0.8); Monocytes Percent Auto 6.8 % (1.7-12.0); Neutrophils Absolute Auto 5.8 10^3/uL (1.4-6.5); Neutrophils Percent Auto 75.3 % (43.0-75.0); Platelet Count 254 10^3/uL (150-450); Red Blood Count 4.56 10^6/uL (4.70-6.10); Red Cell Distribution Width 12.6 % (11.0-15.0); White Blood Count 7.8 10^3/uL (4.0-11.0)
[2025-02-21 13:55] LABS: D Dimer 0.33 mg/L FEU (<=0.59)
[2025-02-21 14:06] LABS: Alanine Aminotransferase 17 U/L (16-63); Albumin Globulin Ratio 1.4; Albumin Level 3.8 g/dL (3.4-5.0); Alkaline Phosphatase 64 U/L (46-116); Anion Gap 13.7; Aspartate Amino Transferase 18 U/L (15-37); BUN Creatinine Ratio 10.2; Bilirubin Total 0.4 mg/dL (0.2-1.0); Calcium 8.5 mg/dL (8.5-10.1); Carbon Dioxide 25.7 mmol/L (21.0-32.0); Chloride 103 mmol/L (98-107); Estimated GFR (African America >60 (>=60 mL/min/1.73m^2); Estimated GFR (Non-African Ame >60 (>=60 mL/min/1.73m^2); Globulin 2.8 g/dL; Glucose 74 mg/dL (74-106); Potassium 4.4 mmol/L (3.5-5.1); Sodium 138 mmol/L (136-145); Total Protein 6.6 g/dL (6.4-8.2); Uric Acid 5.9 mg/dL (3.5-7.2)
== END 2025-02-21 15:19 | disposition home or self-care (01) ==
PROVIDERS: Emergency Provider Emergency Medicine; PCP Family Medicine
DX: M66.0 Rupture of popliteal cyst (principal); F17.200 Nicotine dependence, unspecified, uncomplicated
CPT/HCPCS: 36415; 73562; 80053; 84550; 85025; 85378; 99284

== ENCOUNTER 2025-03-04 05:16 | Emergency (ER) | payer OTHER, SELFPAY ==
[2025-03-04 05:22] VITALS: BP 142/75; PULSE 63; TEMP 36.9; O2SAT 96; BMI 23.1
[2025-03-04 05:47] LABS: Bilirubin Urine NEGATIVE (NEGATIVE); Blood Urine MODERATE (NEGATIVE); Clarity Urine CLOUDY (CLEAR); Color Urine LT. YELLOW (YELLOW); Glucose Urine UA NEGATIVE (NEGATIVE); Ketones Urine TRACE mg/dL (NEGATIVE); Leukocyte Esterase Urine MODERATE (NEGATIVE); Nitrite Urine NEGATIVE (NEGATIVE); Protein Urine 100 mg/dL (NEG/TRACE); Specific Gravity Urine 1.025 (1.005-1.025); Urobilinogen Urine 0.2 EU/dL (0.2-1.0)
--- NOTE | 2025-03-04 05:47 | ED_ITS ---
HPI - Male Genitourinary General Chief complaint: Urogenital-Male Stated complaint: UTI POSSIBLE Time Seen by Provider: 03/04/25 05:22 Source: patient Mode of arrival: walk-in Limitations: no limitations History of Present Illness HPI Narrative: This 54 old male who has been seen in this emergency department 5 times in the past year for urinary tract infections and has tested positive for coagulase- negative staph, Staphylococcus faecalis and Staph epidermidis and was recently placed on Keflex presents for evaluation of urinary frequency urgency and dysuria that started last night, 2 days ago. Approximately 1 year ago the patient had a workup including CEA which was negative, PSA 8 which is normal, free PSA which was normal and percentage of free PSA which was normal. He also had negative gonorrhea and Chlamydia studies at that time. He denies that he is sexually active. He denies any abdominal pain. He does have some chronic low back pain which is unchanged. He states he has lost a certain amount of weight but is still wearing the same clothes. His appetite is not changed. He has not had any fever. He has not had any nausea or vomiting. Despite several recommendations to follow-up with urology he has not yet done so. He states that he cannot find a time because he works at [employer]. He also has some mild swelling to the left lower extremity. He was recently seen here for a swelling behind his right knee that was thought to be a ruptured Hardy's cyst after having sensation of a pop in the back of his knee and then some mild swelling in the lower leg. He does not have any chest pain or shortness of breath. Related Data Previous Rx's ?Medication ?Instructions ?Recorded ciprofloxacin HCl 500 mg tablet 500 mg PO Q12H #14 tab s 09/02/24 ondansetron 4 mg disintegrating 4 mg PO Q6H PRN nausea and 11/06/24 tablet vomiting #12 tabs cephalexin 500 mg capsule 500 mg PO TID 7 days #21 cap s 01/17/25 Allergies Allergy/AdvReac Type Severity Reaction Status Date / Time No Known Drug Allergies Allergy Verified 03/04/25 05:22 Review of Systems ROS Status of ROS 10 or more systems reviewed and unremark able except as noted in history and below PFSH PFSH Social History Smoking status: Current every day smoker Little interest or pleasure in doing things: not at all Feeling down, depressed, or hopeless: not at all Exam Narrative Exam Narrative: Vital signs and Nursing Notes reviewed: Patient is afebrile with a normal pulse, blood pressure is mildly elevated 142/75, he is not hypoxic with pulse ox of 96% on room air General: Awake, alert, oriented, no acute distress, lying comfortably on the stretcher HEENT: Normocephalic atraumatic, mucous membranes are moist and pink, eyes are clear, normal conjunctiva, vision is grossly intact Chest: Lungs are clear to auscultation with good air entry, there is no wheezing rhonchi or rales appreciated no accessory muscle use, patient is speaking in complete sentences-no chest wall tenderness to palpation CVS: Regular rate and rhythm S1-S2, no murmurs rubs or gallops, pulses are brisk and equal bilaterally ABD: Soft, nondistended, nontender, no rebound guarding or rigidity, no CVA tenderness or tenderness over the urinary bladder, bladder does not appear distended Extremities: Moving all extremities, mild swelling to the left lower leg without calf redness, induration or palpable cords. Calf muscles are soft. I do not appreciate any mass behind the left knee. Skin: Normal in appearance without rash,pallor, petechiae or purpura Neuro: No focal deficits Constitutional Vital Signs, click to edit/add: Last Vital Signs Temp 98.4 F 03/04/25 05:22 Pulse 63 03/04/25 05:22 Resp 18 03/04/25 05:22 BP 142/75 H 03/04/25 05:22 Pulse Ox 96 03/04/25 05:22 O2 Del Method Room Air 03/04/25 05:22 Course Vital Signs Vital signs: Vital Signs Temperature 98.4 F 03/04/25 05:22 Pulse Rate 63 03/04/25 05:22 Respiratory Rate 18 03/04/25 05:22 Blood Pressure 142/75 H 03/04/25 05:22 Pulse Oximetry 96 03/04/25 05:22 Oxygen Delivery Method Room Air 03/04/25 05:22 Temperature 98.4 F 03/04/25 05:22 Pulse Rate 63 03/04/25 05:22 Respiratory Rate 18 03/04/25 05:22 Blood Pressure 142/75 H 03/04/25 05:22 Pulse Oximetry 96 03/04/25 05:22 Oxygen Delivery Method Room Air 03/04/25 05:22 MDM - Male Genitourinary MDM Narrative Medical decision making narrative: This 54-year-old male presents for reevaluation of urinary frequency urgency and dysuria that started yesterday. This is his sixth visit for urinary tract symptoms. Once again he denies any abdominal pain. He does not have any nausea or vomiting. He does not have a history of kidney stones. His presentation is not that of kidney stones. he has not followed up with urology. He did have negative CEA PSA and gonorrhea chlamydia testing a year ago. He denies that he is sexually active. He denies any penile discharge. He denies any abdominal pain. He does have some chronic low back pain which is unchanged. He has recently lost some weight despite having a normal diet. The patient's vital signs and physical exam are benign. CBC with differential, comprehensive metabolic profile and repeat PSA was ordered. He was medicated with a dose of Cipro as his last urine was coag negative staph that was sensitive to Cipro, tetracycline, Macrobid and Levaquin. He was also given a dose of Pyridium for his frequency urgency and dysuria. Urine again is cloudy with greater than 100 white blood cells per high-power field. Culture is pending. CBC with differential and comprehensive metabolic profile was also ordered and he has a normal white count and hemoglobin. Electrolytes are normal. Glucose is normal at 93. I explained to him that it is imperative that he follows up with urology as having 6 urinary tract infections is not normal and he will end up having antibiotic resistant urinary tract infections that could lead to sepsis in the future. At this time he is stable for discharge. He will be given a 10-day course of Cipro at this time pending culture results. Lab Data Labs: Lab Results 03/04/25 03/04/25 Range/Units 05:25 05:56 WBC 7.3 (4.0-11.0) 10^3/uL RBC 4.10 L (4.70-6.10) 10^6/uL Hgb 13.5 L (14.0-18.0) g/dL Hct 39.2 L (42.0-54.0) % MCV 95.6 H (80.0-94.0) fL MCH 32.9 (25.9-34.0) pg MCHC 34.4 (29.9-35.2) g/dL RDW 12.7 (11.0-15.0) % Plt Count 261 (150-450) 10^3/uL MPV 9.8 (9.5-13.5) fL Neut % (Auto) 60.5 (43.0-75.0) % Lymph % (Auto) 23.1 (20.5-60.0) % [place] % (Auto) 9.5 (1.7-12.0) % Eos % (Auto) 5.6 (0.9-7.0) % Baso % (Auto) 1.0 (0.2-2.0) % Neut # (Auto) 4.4 (1.4-6.5) 10^3/uL Lymph # (Auto) 1.7 (1.2-3.8) 10^3/uL [place] # (Auto) 0.7 (0.3-0.8) 10^3/uL Eos # (Auto) 0.4 (0.0-0.7) 10^3/uL Baso # (Auto) 0.1 (0.0-0.1) 10^3/uL Abs Immat Gran (auto) 0.02 (0.00-0.03) 10^3/uL Imm/Tot Granulo (auto) 0.3 (0.0-0.5) % Sodium 137 (136-145) mmol/L Potassium 3.9 (3.5-5.1) mmol/L Chloride 104 (98-107) mmol/L Carbon Dioxide 30.3 (21.0-32.0) mmol/L Anion Gap 6.6 BUN 21.0 H (7.0-18.0) mg/dL Creatinine 1.04 (0.70-1.30) mg/dL Est GFR ( Amer) >60 (>=60 mL/min/1.73m^2) Est GFR (Non-Af Amer) >60 (>=60 mL/min/1.73m^2) BUN/Creatinine Ratio 20.2 Glucose 93 (74-106) mg/dL Calcium 8.5 (8.5-10.1) mg/dL Total Bilirubin 0.3 (0.2-1.0) mg/dL AST 17 (15-37) U/L ALT 27 (16-63) U/L Alkaline Phosphatase 68 (46-116) U/L Total Protein 5.8 L (6.4-8.2) g/dL Albumin 3.1 L (3.4-5.0) g/dL Globulin 2.7 g/dL Albumin/Globulin Ratio 1.1 Urine Color Lt. yellow (YELLOW) Urine Clarity Cloudy A (CLEAR) Urine pH 6.0 (5.0-9.0) Ur Specific [place] 1.025 (1.005-1.025) Urine Protein 100 A (NEG/TRACE) mg/dL Urine Glucose (UA) Negative (NEGATIVE) mg/dL Urine Ketones Trace A (NEGATIVE) mg/dL Urine Occult Blood Moderate A (NEGATIVE) Urine Nitrite Negative (NEGATIVE) Urine Bilirubin Negative (NEGATIVE) Urine Urobilinogen 0.2 (0.2-1.0) EU/dL Ur Leukocyte Esterase Moderate A (NEGATIVE) Urine RBC 2-5 A (0-2) #/HPF Urine WBC >100 A (NONE SEEN) #/HPF Ur Squamous Epith Cells None seen (NONE/RARE) #/LPF Urine Crystals None seen (None Seen) #/HPF Urine Bacteria Small A (NONE SEEN) #/HPF Urine Casts None seen (NONE SEEN) #/LPF Urine Mucus None seen (NONE SEEN) Ur [place] [place] Discharge Chief Complaint: Urogenital-Male Clinical Impression: Recurrent UTI Patient Disposition: Home, Self-Care Time of Disposition Decision: 06:13 Condition: Good Prescriptions / Home Meds: No Action ciprofloxacin HCl 500 mg tablet 500 mg PO Q12H Qty: 14 0RF ondansetron 4 mg tablet,disintegrating 4 mg PO Q6H PRN (Reason: nausea and vomiting) Qty: 12 0RF cephalexin 500 mg capsule 500 mg PO TID 7 Days Qty: 21 0RF Print Language: Slovenian Instructions: Urinary Tract Infection in Men (ED) Referrals: FELIPE COLIN [Primary Care Provider, Family Practice] - 1 week Naren Wagner MD [Physician, Urology] - 1 week Referral Note: Recurrent UTIs, 6 in past year
[2025-03-04] MEDS: CIPROFLOXACIN HCL 500 MG TABLET PO (05:52)
[2025-03-04 05:53] LABS: Urine Microscopic Indicated YES
[2025-03-04 05:55] LABS: Bacteria Urine SMALL #/HPF (NONE SEEN); Cast Seen? NONE SEEN #/LPF (NONE SEEN); Crystals Seen? None Seen #/HPF (None Seen); Mucus Urine NONE SEEN (NONE SEEN); Squamous Epithelial Cell Urine NONE SEEN #/LPF (NONE/RARE); WBC Urine >100 #/HPF (NONE SEEN)
[2025-03-04 05:56] LABS: Urine Culture Indicated YES-FRMC
[2025-03-04 06:04] LABS: Basophils Absolute Auto 0.1 10^3/uL (0.0-0.1); Eosinophils Absolute Auto 0.4 10^3/uL (0.0-0.7); Eosinophils Percent Auto 5.6 % (0.9-7.0); Hematocrit 39.2 % (42.0-54.0); Hemoglobin 13.5 g/dL (14.0-18.0); Immature Granulocytes Abs Auto 0.02 10^3/uL (0.00-0.03); Immature Granulocytes Pct Auto 0.3 % (0.0-0.5); Lymphocytes Absolute Auto 1.7 10^3/uL (1.2-3.8); Lymphocytes Percent Auto 23.1 % (20.5-60.0); Mean Corpuscular HGB Conc 34.4 g/dL (29.9-35.2); Mean Corpuscular Hemoglobin 32.9 pg (25.9-34.0); Mean Corpuscular Volume 95.6 fL (80.0-94.0); Mean Platelet Volume 9.8 fL (9.5-13.5); Monocytes Absolute Auto 0.7 10^3/uL (0.3-0.8); Monocytes Percent Auto 9.5 % (1.7-12.0); Neutrophils Absolute Auto 4.4 10^3/uL (1.4-6.5); Neutrophils Percent Auto 60.5 % (43.0-75.0); Platelet Count 261 10^3/uL (150-450); Red Cell Distribution Width 12.7 % (11.0-15.0); White Blood Count 7.3 10^3/uL (4.0-11.0)
[2025-03-04] MEDS: PHENAZOPYRIDINE 100 MG TABLET 200 MG PO (06:10)
[2025-03-04 06:17] LABS: Alanine Aminotransferase 27 U/L (16-63); Albumin Globulin Ratio 1.1; Albumin Level 3.1 g/dL (3.4-5.0); Alkaline Phosphatase 68 U/L (46-116); Anion Gap 6.6; Aspartate Amino Transferase 17 U/L (15-37); BUN Creatinine Ratio 20.2; Bilirubin Total 0.3 mg/dL (0.2-1.0); Calcium 8.5 mg/dL (8.5-10.1); Carbon Dioxide 30.3 mmol/L (21.0-32.0); Chloride 104 mmol/L (98-107); Estimated GFR (African America >60 (>=60 mL/min/1.73m^2); Estimated GFR (Non-African Ame >60 (>=60 mL/min/1.73m^2); Globulin 2.7 g/dL; Glucose 93 mg/dL (74-106); Potassium 3.9 mmol/L (3.5-5.1); Sodium 137 mmol/L (136-145); Total Protein 5.8 g/dL (6.4-8.2)
--- NOTE | 2025-03-04 06:42 | PC.NURSE ---
i gave this patient verbal and written discharge orders along with 2 Rx and this patient voices yes to understanding these. at time of discharge this patient voices no concerns and shows no signs of distress
[2025-03-05 08:08] LABS: Prostate Specific Ag 0.7 ng/mL (0.0-4.0)
--- NOTE | 2025-03-07 16:31 | PC.NURSE ---
at this time this nurse called in prescription for bactrim ds 1 tab po bid (disp 20) per shelby kemp from urine culture resulted back on 03/07/2025- cat[facility]
== END 2025-03-04 06:41 | disposition home or self-care (01) ==
PROVIDERS: Emergency Provider Emergency Medicine; PCP Family Medicine
DX: N39.0 Urinary tract infection, site not specified (principal); Z87.440 Personal history of urinary (tract) infections; F17.200 Nicotine dependence, unspecified, uncomplicated
CPT/HCPCS: 36415; 80053; 81001; 84153; 84154; 85025; 87086; 87088; 87186; 99283

== ENCOUNTER 2025-05-24 16:49 | Emergency (ER) | payer OTHER, SELFPAY ==
[2025-05-24 16:53] VITALS: BP 135/87; PULSE 69; TEMP 36.9; O2SAT 96; BMI 22.0
[2025-05-24 17:14] LABS: Glucose Urine UA NEGATIVE (NEGATIVE)
--- NOTE | 2025-05-24 17:18 | ED_ITS ---
HPI HPI - General Adult General Chief complaint: Urogenital-Male Stated complaint: URINARY ISSUES, KNEE PAIN/LUMP Time Seen by Provider: 05/24/25 16:51 Source: patient Mode of arrival: walk-in Limitations: no limitations History of Present Illness HPI narrative: 54-year-old male presents to the emergency department for frequency and dysuria. He had it starting today. He has had UTIs in the past and it has been about 6 months since his last 1. No back pain fever vomiting or gross hematuria. Related Data Previous Rx's ?Medication ?Instructions ?Recorded nitrofurantoin 100 mg PO BID 7 days #14 cap s 05/24/25 monohydrate/macrocrystals 100 mg capsule (Macrobid) Allergies Allergy/AdvReac Type Severity Reaction Status Date / Time No Known Drug Allergies Allergy Verified 05/24/25 16:56 Review of Systems ROS Narrative A ten point review of systems is negative except as noted above. PFSH PFSH Social History Smoking status: Current every day smoker Little interest or pleasure in doing things: not at all Feeling down, depressed, or hopeless: not at all Exam Narrative Exam Narrative: Nurses note and vital signs reviewed and patient is not hypoxic. General: The patient appears well and in no apparent distress. Patient is resting comfortably on cart. Skin: Warm, dry, no pallor noted. There is no rash noted. Head: Normocephalic, atraumatic Eye: Normal conjunctiva, no drainage Ears, Nose, Mouth, and Throat: oral mucosa is moist. Nares patent. Cardiovascular: Regular Rate and Rhythm Respiratory: Patient is in no distress, no accessory muscle use, lungs are clear to auscultation, no wheezing, rales or rhonchi Back: non-tender, no CVA tenderness bilaterally to percussion. GI: Soft and nontender Musculoskeletal: The patient has no evidence of calf tenderness, no pitting edema, symmetrical pulses noted bilaterally Neurological: A&O, normal speech Psychiatric: Cooperative Constitutional Vital Signs, click to edit/add: Last Vital Signs Temp 98.4 F 05/24/25 16:53 Pulse 69 05/24/25 16:53 Resp 16 05/24/25 16:53 BP 135/87 05/24/25 16:53 Pulse Ox 96 05/24/25 16:53 O2 Del Method Room Air 05/24/25 16:53 Course Vital Signs Vital signs: Vital Signs Temperature 98.4 F 05/24/25 16:53 Pulse Rate 69 05/24/25 16:53 Respiratory Rate 16 05/24/25 16:53 Blood Pressure 135/87 05/24/25 16:53 Pulse Oximetry 96 05/24/25 16:53 Oxygen Delivery Method Room Air 05/24/25 16:53 Temperature 98.4 F 05/24/25 16:53 Pulse Rate 69 05/24/25 16:53 Respiratory Rate 16 05/24/25 16:53 Blood Pressure 135/87 05/24/25 16:53 Pulse Oximetry 96 05/24/25 16:53 Oxygen Delivery Method Room Air 05/24/25 16:53 Medical Decision Making MDM Narrative Medical decision making narrative: UTI is identified and he was started on Macrobid here. Treatment diagnosis and follow-up were discussed with the patient. I do not suspect urethritis or pyelonephritis. Differential Diagnosis Differential Diagnosis: UTI, urethritis, pyelonephritis Lab Data Lab results reviewed: Yes I reviewed the patient's lab results Labs: Lab Results 05/24/25 Range/Units 17:01 Urine Color Lt. yellow (YELLOW) Urine Clarity Sl cloudy (CLEAR) Urine pH 6.0 (5.0-9.0) Ur Specific [place] 1.025 (1.005-1.025) Urine Protein Trace (NEG/TRACE) mg/dL Urine Glucose (UA) Negative (NEGATIVE) mg/dL Urine Ketones Negative (NEGATIVE) mg/dL Urine Occult Blood Small A (NEGATIVE) Urine Nitrite Negative (NEGATIVE) Urine Bilirubin Negative (NEGATIVE) Urine Urobilinogen 0.2 (0.2-1.0) EU/dL Ur Leukocyte Esterase Large A (NEGATIVE) Discharge Plan Discharge Chief Complaint: Urogenital-Male Clinical Impression: Urinary tract infection Patient Disposition: Home, Self-Care Time of Disposition Decision: 17:24 Condition: Good Mode of Transportation: Private Vehicle Prescriptions / Home Meds: New nitrofurantoin monohyd/m-cryst [Macrobid] 100 mg capsule 100 mg PO BID 7 Days Qty: 14 0RF Rx Instructions: must administer with a meal/food Print Language: Spanish Instructions: Urinary Tract Infection in Men (ED) Referrals: Physician,Non-Staff, [Primary Care Provider] - 1 week
[2025-05-24 17:29] LABS: Cast Seen? SEEN #/LPF (NONE SEEN); Crystals Seen? None Seen #/HPF (None Seen); Urine Culture Indicated YES-FRMC
[2025-05-24] MEDS: NITROFURANTOIN MONOHYD/MAC-CRST 100 MG CAPSULE PO (17:33)
== END 2025-05-24 17:35 | disposition home or self-care (01) ==
PROVIDERS: Physician Assistant; Emergency Provider Emergency Medicine
DX: N39.0 Urinary tract infection, site not specified (principal); Z87.440 Personal history of urinary (tract) infections; F17.200 Nicotine dependence, unspecified, uncomplicated
CPT/HCPCS: 81001; 87086; 87088; 87186; 99283

== ENCOUNTER 2025-06-08 10:53 | Emergency (ER) | payer OTHER, SELFPAY ==
[2025-06-08 10:58] VITALS: BP 129/87; PULSE 67; TEMP 36.6; O2SAT 99; BMI 23.1
--- NOTE | 2025-06-08 11:09 | ED_ITS ---
HPI HPI - General Adult General Chief complaint: Urogenital-Male Stated complaint: DIFFICULTY URINATING Time Seen by Provider: 06/08/25 11:03 Source: patient Mode of arrival: walk-in Limitations: no limitations History of Present Illness HPI narrative: 54-year-old male presents to the emergency department for trouble urinating. . He thinks he might have a UTI again. He states sometimes when he goes to urinate it takes a while to get his stream started. He was treated for UTI about a week and a half ago. No fever or vomiting. No gross hematuria or flank pain. Related Data Previous Rx's ?Medication ?Instructions ?Recorded nitrofurantoin 100 mg PO BID 7 days #14 cap s 05/24/25 monohydrate/macrocrystals 100 mg capsule (Macrobid) tamsulosin 0.4 mg capsule (Flomax) 0.4 mg PO DAILY #14 caps 06/08/25 Allergies Allergy/AdvReac Type Severity Reaction Status Date / Time No Known Drug Allergies Allergy Verified 06/08/25 10:57 Opioid HPI Opioid Management Most Recent Opioid Data: Last Pain Scale 2 Today, 10:58 Review of Systems ROS Narrative A ten point review of systems is negative except as noted above. PFSH PFSH Social History Smoking status: Current every day smoker Little interest or pleasure in doing things: not at all Feeling down, depressed, or hopeless: not at all Exam Narrative Exam Narrative: Nurses note and vital signs reviewed and patient is not hypoxic. General: The patient appears well and in no apparent distress. Patient is resting comfortably on cart. Skin: Warm, dry, no pallor noted. There is no rash noted. Head: Normocephalic, atraumatic Eye: Normal conjunctiva, no drainage Ears, Nose, Mouth, and Throat: oral mucosa is moist. Nares patent. Cardiovascular: Regular Rate and Rhythm Respiratory: Patient is in no distress, no accessory muscle use, lungs are clear to auscultation, no wheezing, rales or rhonchi Back: non-tender, no CVA tenderness bilaterally to percussion. GI: Soft and nontender Musculoskeletal: The patient has no evidence of calf tenderness, no pitting edema, symmetrical pulses noted bilaterally Neurological: A&O, normal speech Psychiatric: Cooperative Constitutional Vital Signs, click to edit/add: Last Vital Signs Temp 98 F 06/08/25 10:58 Pulse 67 06/08/25 10:58 Resp 20 06/08/25 10:58 BP 129/87 06/08/25 10:58 Pulse Ox 99 06/08/25 10:58 O2 Del Method Room Air 06/08/25 10:58 Course Vital Signs Vital signs: Vital Signs Temperature 98 F 06/08/25 10:58 Pulse Rate 67 06/08/25 10:58 Respiratory Rate 20 06/08/25 10:58 Blood Pressure 129/87 06/08/25 10:58 Pulse Oximetry 99 06/08/25 10:58 Oxygen Delivery Method Room Air 06/08/25 10:58 Temperature 98 F 06/08/25 10:58 Pulse Rate 67 06/08/25 10:58 Respiratory Rate 20 06/08/25 10:58 Blood Pressure 129/87 06/08/25 10:58 Pulse Oximetry 99 06/08/25 10:58 Oxygen Delivery Method Room Air 06/08/25 10:58 Medical Decision Making MDM Narrative Medical decision making narrative: Urinalysis is negative. No evidence of UTI. I suspect he may have BPH and he is referred to Dr. Streeter and is prescribed Flomax. Treatment diagnosis and follow-up were discussed with the patient. Differential Diagnosis Differential Diagnosis: UTI, BPH Lab Data Lab results reviewed: Yes I reviewed the patient's lab results Labs: Lab Results 06/08/25 Range/Units 11:15 Urine Color Yellow (YELLOW) Urine Clarity Clear (CLEAR) Urine pH 6.0 (5.0-9.0) Ur Specific [place] 1.025 (1.005-1.025) Urine Protein Negative (NEG/TRACE) mg/dL Urine Glucose (UA) Negative (NEGATIVE) mg/dL Urine Ketones Negative (NEGATIVE) mg/dL Urine Occult Blood Negative (NEGATIVE) Urine Nitrite Negative (NEGATIVE) Urine Bilirubin Negative (NEGATIVE) Urine Urobilinogen 0.2 (0.2-1.0) EU/dL Ur Leukocyte Esterase Negative (NEGATIVE) Urine RBC 0-2 (0-2) #/HPF Urine WBC 0-2 A (NONE SEEN) #/HPF Ur Squamous Epith Cells Rare (NONE/RARE) #/LPF Urine Crystals None seen (None Seen) #/HPF Urine Bacteria Trace A (NONE SEEN) #/HPF Urine Casts None seen (NONE SEEN) #/LPF Urine Mucus None seen (NONE SEEN) Discharge Plan Discharge Chief Complaint: Urogenital-Male Clinical Impression: Urinary hesitancy Patient Disposition: Home, Self-Care Time of Disposition Decision: 11:56 Condition: Good Mode of Transportation: Private Vehicle Prescriptions / Home Meds: New tamsulosin [Flomax] 0.4 mg capsule 0.4 mg PO DAILY Qty: 14 0RF No Action nitrofurantoin monohyd/m-cryst [Macrobid] 100 mg capsule 100 mg PO BID 7 Days Qty: 14 0RF Rx Instructions: must administer with a meal/food Print Language: Indonesian Instructions: Urinary Urgency and Frequency (DC) Referrals: Physician,Non-Staff, MD [Primary Care Provider] - 1 week Rakesh Streeter MD [Physician, Urology]
[2025-06-08 11:36] LABS: Glucose Urine UA NEGATIVE (NEGATIVE)
[2025-06-08 11:49] LABS: Cast Seen? NONE SEEN #/LPF (NONE SEEN); Crystals Seen? None Seen #/HPF (None Seen)
[2025-06-08] MEDS: TAMSULOSIN HCL 0.4 MG CAPSULE PO (12:03)
== END 2025-06-08 12:10 | disposition home or self-care (01) ==
PROVIDERS: Emergency Provider Emergency Medicine
DX: R39.11 Hesitancy of micturition (principal)
CPT/HCPCS: 81001; 99283

== ENCOUNTER 2025-06-30 09:01 | Emergency (ER) | payer OTHER, SELFPAY ==
[2025-06-30 09:08] VITALS: BP 123/81; PULSE 62; O2SAT 99; BMI 23.1
--- OUTSIDE RECORDS SUMMARY | 2025-06-30 09:32 | XMS_ITS | CCD ---
Author Organization [facility] CliniSysd Care Team Providers Care Alumni Secretary Name Role Phone PAY ., DR ZEPEDA Consulting Unavailable PAY ., DR ZEPEDA Admitting Unavailable REQUEST, DR IGLESIAS LISTED Primary Care Unavaila ble PAY ., DR ZEPEDA Attending Unavailable REQUEST, DR IGLESIAS LISTED Primary Care Unavaila ble ZIEBALEXANDER, DR ELIZABETH Corondao Consulting Unavailable MELISSA ., JULIA Admitting Unavailable MELISSA ., JULIA Attending Unavailable MELISSA ., JULIA Consulting Unavailable REQUEST, NONE LISTED Primary Care Unavaila ble MELISSA ., JULIA Admitting Unavailable Glenn Vela Consulting Unavailable MELISSA ., JULIA Attending Unavailable MELISSA ., JULIA Consulting Unavailable REQUEST, DR NONE LISTED Primary Care Unavaila ble HAY ., DR VILLALBA Admitting Unavailable HAY ., DR VILLALBA Attending Unavailable HAY ., DR VILLALBA Consulting Unavailable Marker Irina LEE Attending Provider Shona LEE, Irina Pierce Attending Provider Katelyn Monzon DO Attending Provider Unavailab le Katelyn Monzon DO Attending Provider Shona DOIrina Attending Provider Katelyn Monzon DO Attending Provider [phone] Irina Nagel Attending Unavailable Irina Nagel Admitting Unavailable Katelyn Monzon Admitting Unavailable Katelyn Monzon Attending Unavailable Irina Nagel Attending Unavailable Irina Nagel Admitting Unavailable Katelyn Monzon Attending Unavailable Katelyn Monzon Admitting Unavailable Problems Active Problems Problem Classification [...] Interpretation Reference Range Facil ity Urine Cultureon 05-24-2025 Bacteria identified Cx Nom (U) ORGANISM: Enterococcus faecalis (O:ENTFAC) [place] Count >100,000 Aerobic CONRADO Charge (PCMIC38) ----- SUSCEPTIBILITY ---- ORGANISM: O:ENTFAC ANTIBIOTIC INTERPRETATION CONRADO Ampicillin S <2 Ciprofloxacin S <1 Daptomycin S 1 Levofloxacin S <1 Linezolid S 2 Nitrofurantoin S <32 Penicillin S 2 Tetracycline R >8 Vancomycin S 1 S = SUSCEPTIBLE I [...] RESISTANT TO ALL B-LACTAM DRUGS. PERFORMED BY: [facility] [address] [place] [address] PATHOLOGIST EARTH MOVING TECHNICIAN LAMAR TINEO M.D. Normal The [facility] Comment on above: Performed By: #### C UU #### [facility] [address] Urine Cultureon 03-04-2025 Bacteria identified Cx Nom (U) ORGANISM: Staphylococcus epidermidis (O:STAEPI) [place] Count >100,000 Aerobic CONRADO Charge (PCMIC38) ----- SUSCEPTIBILITY ---- ORGANISM: O:STAEPI ANTIBIOTIC INTERPRETATION CONRADO Ciprofloxacin R >2 Daptomycin S 1 Levofloxacin I 4 Linezolid S <1 Nitrofurantoin S <32 Oxacillin R >2 Penicillin R >2 Tetracycline R >8 Trimethoprim/Sulfame thoxazole S <0.5 Vancomycin S 1 S = [...] RESISTANT TO ALL B-LACTAM DRUGS. PERFORMED BY: [place] [address] PATHOLOGIST EARTH MOVING TECHNICIAN DAPHNEY CONTE M.D. Normal [facility] Comment on above: Performed By: #### C UU #### [address] Urine cultureOrdered By: Natasha alfonso Marker on 03-04-2025 Bacteria identified Cx Nom (U) Staphylococcus epidermidis Abnormal [facility] Urine Cultureon 01-17-2025 Bacteria identified Cx Nom (U) ORGANISM: Staphylococcus epidermidis (O:STAEPI) [place] Count >100,000 Aerobic CONRADO Charge (PCMIC38) ----- SUSCEPTIBILITY ---- ORGANISM: O:STAEPI ANTIBIOTIC INTERPRETATION CONRADO Ciprofloxacin S <1 Daptomycin S <0.5 Levofloxacin S <1 Linezolid S <1 Nitrofurantoin S <32 Oxacillin R >2 Penicillin R 2 Tetracycline S <4 Trimethoprim/Sulfame thoxazole R >2 Vancomycin S 1 S = SUSCEPTIBLE I = INTERMEDIATE R = RESISTANT BLANK = DATA NOT AVAILABLE, OR DRUG NOT ADVISABLE OR TESTED R* = RESISTANCE DUE TO EXTENDED SPECTRUM BETA-LACTAMASES ESBL = EXTENDED SPECTRUM BETA-LACTAMASE TFG = THYMIDINE-DEPENDENT STRAIN TMO = BETA-LACTAMASE POSITIVE IB = INDUCIBLE BETA-LACTAMASE. APPEARS IN PLACE OF 'S' WITH SPECIES KNOWN TO POSSESS INDUCIBLE BETA-LACTAMASES. POTENTIALLY THEY MAY BECOME RESISTANT TO ALL B-LACTAM DRUGS. PERFORMED BY: [place] [address] PATHOLOGIST EARTH MOVING TECHNICIAN DAPHNEY CONTE M.D. Normal The [facility] Comment on above: Performed By: #### C UU #### [address] Urine cultureOrdered By: Cornelius Monzon on 01-17-2025 Bacteria identified Cx Nom (U) Abnormal [facility] Urine Cultureon 12-10-2024 Bacteria identified Cx Nom (U) ORGANISM: Staphylococcus epidermidis (O:STAEPI) [place] Count >100,000 Aerobic CONRADO Charge (PCMIC38) ----- SUSCEPTIBILITY ---- ORGANISM: O:STAEPI ANTIBIOTIC INTERPRETATION CONRADO Ciprofloxacin R >2 Daptomycin S <0.5 Levofloxacin R >4 Linezolid S <1 Nitrofurantoin S <32 Oxacillin R >2 Penicillin R >2 Tetracycline R >8 Trimethoprim/Sulfame thoxazole S <0.5 Vancomycin S 1 S = [...] RESISTANT TO ALL B-LACTAM DRUGS. PERFORMED BY: [facility] [address] [place] [address] PATHOLOGIST EARTH MOVING TECHNICIAN DAPHNEY CONTE M.D. Normal [facility] Comment on above: Performed By: #### C UU #### [place] [id number] [facility] Urine cultureOrdered By: Natasha kaden Marker on 12-10-2024 Bacteria identified Cx Nom (U) Abnormal [facility] ER URINE PROFILEon 3 Bilirubin Ql (U) Negative Normal NEGATIVE [facility] Comment on above: Performed By: #### E RUR #### [facility] [address] [place] [address] Dr. Norbert Mcclure Clarity (U) CLEAR Normal CLEAR [facility] Comment on above: Performed By: #### E RUR #### [facility] [address] [place] [address] Dr. Norbert Mcclure Color (U) YELLOW Normal YELLOW [facility] Comment on above: Performed By: #### E RUR #### [facility] [address] [place] [address] Dr. Norbert Mcclure ERUTAYLOR A micrscopic examination will be performed if indicated. Normal The [facility] Comment on above: Performed By: #### E RUR #### [facility] [address] [place] [address] Dr. Norbert Mcclure Glucose Ql (U) Negative Normal NEGATIVE The [facility] Comment on above: Performed By: #### E RUR #### [facility] [address] [address] [address] Norbert Mcclure Hemoglobin Ql (U) Negative Normal NEGATIVE The [facility] Comment on above: Performed By: #### E RUR #### [facility] [address] [place] [address] Dr. Norbert Mcclure Ketones Ql (U) Negative Normal NEGATIVE The [facility] Comment on above: Performed By: #### E RUR #### [facility] [address] [place] [address] Dr. Norbert Mcclure LEUKOCYTES Negative Normal NEGATIVE The [facility] Comment on above: Performed By: #### E RUR #### [facility] [address] [place] [address] Dr. Norbert Mcclure Nitrite Ql (U) Negative Normal NEGATIVE The [facility] Comment on above: Performed By: #### E RUR #### [facility] [address] [place] [address] Dr. Norbert Mcclure pH (U) 6.0 [pH] Normal 5-9 [facility] Comment on above: Performed By: #### E RUR #### [facility] [address] [place] [address] Dr. Norbert Mcclure SPEC GRAVITY 1.010 Normal 1.005-<=1.025 The [facility] Comment on above: Performed By: #### E RUR #### [facility] [address] [place] [address] Dr. Norbert Mcclure UA PROTEIN Negative Normal NEGATIVE/ TRACE The [facility] Comment on above: Performed By: #### E RUR #### [facility] [address] [place] [address] Dr. Norbert Mcclure UR MICRO IND NOT INDICATED Normal [facility] Comment on above: Performed By: #### E RUR #### [facility] [address] [place] [address] Dr. Norbert Mcclure Urobilinogen Qn (U) 0.2 {Dara'U}/dL Normal 0.2 - 1. 0 [facility] Comment on above: Performed By: #### E RUR #### [facility] [address] [place] [address] Dr. Norbert Mcclure XR LSPINE 2_3 VIEWSon [...] ELIZABETH CHOW Date: 2022-05-22 10:10 Normal The [facility] Encounters Encounter Date Encounter Type Care Provider Facility Start: 05-24-2025 End: 05-24-[address] [facility] Work Phone: Start: 05-24-2025 End: 05-24-2025 Departed Referred Katelyn Garcia DO -[facility] Start: 03-04-2025 End: 03-04-2025 [address] Marker [facility] Work Phone: Start: 03-04-2025 End: 03-04-2025 Departed Referred Irina Marker DO Work Phone: [facility] Start: 01-17-2025 End: 01-17-[address] [facility] Work Phone: Start: 01-17-2025 End: 01-17-2025 Departed Referred Irina Marker DO Work Phone: [facility] Start: 12-10-2024 End: 12-10-[address] [facility] Work Phone: Start: 12-10-2024 End: 12-10-2024 Departed Referred Irina Marker DO Work Phone: [facility] Start: 12-03-2022 End: 12-03-[address] KATELYN NEW . Facility: Start: 05-22-2022 End: 05-22-2022 ambulatory NONE LISTED REQUEST Facility: Start: 03-27-2022 End: 03-27-2022 ambulatory NONE LISTED REQUEST Facility: Start: 02-21-2022 End: 02-21-2022 ambulatory NONE LISTED REQUEST Facility: Procedures Date Procedure Procedure Detail Performing Clinician Start: 03-04-2025 Urine culture Irina borges DO Work Phone: Start: 01-17-2025 Urine culture Irina borges DO Work Phone: Start: 12-10-2024 Urine culture Irina borges DO Work Phone: Plan of Treatment Date Care Activity Detail Author Start: 05-24-2025 Urine culture [facility] Start: 05-24-2025 Bacteria identified in Urine by Culture Urine Culture [facility] Start: 03-04-2025 Bacteria identified in Urine by Culture Urine Culture [facility] Start: 03-04-2025 Urine culture [facility] Start: 01-17-2025 Bacteria identified in Urine by Culture Urine Culture [facility] Start: 01-17-2025 Urine culture [facility] Start: 12-10-2024 Urine culture [facility] Start: 12-10-2024 Bacteria identified in Urine by Culture Urine Culture [facility] Payers Date Payer Category Payer Self-pay [id number] 1970 Unknown [id number] [id number] [id number] 1970 Unknown [id number] 2.16.84 [id number] 1970 Unknown [id number] 2.16.84 [id number] 1970 Unknown [id number] 2.16.84 [id number] 1959 Unknown [id number] 1959 Unknown [id number] Unknown [employer] [id number] Unknown [id number] 2.16.8 [id number] Unknown [id number] 2.16.8 [id number] Unknown [id number] 2.16.8 [id number] Unknown [id number] 2.16.8 [id number] Social History Date Type Detail Facility Tobacco smoking stat [facility] Unknown if ever smoked [facility] Work Phone: Start: 12-12-2024 End: 03-05-2025 Sex Male (finding) [facility] Start: 1970 Sex Assigned At Male F [facility] Clinical Note 03-27-2022 Note Date & [...] authenticated by: GLENN VELA Date: 2022-03-27 10:58 [facility] Evaluation note Note Date & Type Note Facility Evaluation note No assessment information availa ble [facility] Work Phone: Reason for referral (narrative) Note Date & Type Note Facility Reason for referral (narrative) No reason for referral information available [facility] Work Phone: Summary Purpose Family History No Family History Records FoundNo Family History Records Found Advance Directives No Advanced Directives Records FoundNo Advanced Directives Records Found Chief Complaint and Reason for Visit Chief Complaint Admit Date Unknown December 10, 2024 10:05pm Unknown January 17, 2025 9:0 2am Unknown March 04, 2025 5:25am Additional Source Comments (unrecognized sect ion and content) No Status Records FoundNo Status Records Found INFORMATION SOURCE (unrecogn ized section and content) DATE CREATED AUTHOR 01/16/2023 [facility] DATE CREATED AUTHOR AUTHOR'S ORGANIZ ATION 05/29/2025 [facility] Care Teams (unrecognized sec tion and content) Team Status: Inactive Member Role Status Dates Irina Nagel , DO Attending Provider Active Start: December 10, 2024 End: December 10, 2024 Team Status: Inactive Member Role Status Dates Katelyn Monzon , DO Attending Provider Active S tart: January 17, 2025 End: January 17, 2025 Team Status: Inactive Member Role Status Dates Irina Nagel , DO Attending Provider Active Start: March 04, 2025 End: March 04, 2025 Team Status: Inactive Member Role Status Dates Katelyn Monzon , DO Attending Provider Active S tart: May 24, 2025 End: May 24, 2025 Goals (unrecognized section and content) Goals may be documented in a n alternate sectionGoals may be documented in an alternate sectionGoals may be documented in an alternate sectionGoals may be documented in an alternate section FOR RECORDS PERTAINING TO PATIENTS [...] BE BASED ON THE PRIMARY CLINICAL RECORDS. [facility] [facility] provides no warranty or guarantee of the accuracy or completeness of information in this document.
[2025-06-30 09:38] LABS: Glucose Urine UA NEGATIVE (NEGATIVE)
[2025-06-30 10:03] LABS: Cast Seen? NONE SEEN #/LPF (NONE SEEN); Crystals Seen? None Seen #/HPF (None Seen); Urine Culture Indicated YES-FRMC
[2025-06-30] MEDS: PHENAZOPYRIDINE 100 MG TABLET PO (10:04)
[2025-06-30] MEDS: CIPROFLOXACIN HCL 500 MG TABLET PO (10:04)
[2025-06-30 10:05] VITALS: BP 128/78; PULSE 69; TEMP 36.1; O2SAT 95
--- NOTE | 2025-06-30 16:29 | ED_ITS ---
HPI HPI - General Adult General Chief complaint: Urogenital-Male Stated complaint: uti complaints Time Seen by Provider: 06/30/25 09:04 Source: patient Mode of arrival: walk-in Limitations: no limitations History of Present Illness HPI narrative: Patient is a 54-year-old male, history significant for recurrent UTIs and possible BPH, presenting to the emergency department the 24-hour history of dysuria. Patient is concerned that he has he had another UTI. He states that ciprofloxacin has helped him in the past. He states he takes Flomax, which seems to help his BPH symptoms. He has not had a TURP or any invasive procedures. He denies any fevers or chills. No back pain or flank pain. Denies any nausea or vomiting. No chest pain or shortness of breath. Related Data Previous Rx's ?Medication ?Instructions ?Recorded ciprofloxacin HCl 500 mg tablet 500 mg PO BID UTI #14 tabs 06/30/25 (Cipro) Allergies Allergy/AdvReac Type Severity Reaction Status Date / Time No Known Drug Allergies Allergy Verified 06/30/25 09:08 Opioid HPI Opioid Management Most Recent Opioid Data: Last Pain Scale 2 06/08/25, 10:58 Review of Systems ROS Status of ROS 10 or more systems reviewed and unremark able except as noted in history and below PFSH PFS Social History Smoking status: Current every day smoker Little interest or pleasure in doing things: not at all Feeling down, depressed, or hopeless: not at all Exam Narrative Exam Narrative: CONSTITUTIONAL: Well-appearing, answering questions and following commands appropriately SKIN: Was warm and dry. EYES: Sclerae white. EARS, NOSE, THROAT: Moist oral mucosa. RESPIRATORY: Clear to auscultation bilaterally, no wheezes, crackles, or stridor, no use of accessory muscles CARDIOVASCULAR: Normal rate and regular rhythm. There is no S3, S4, murmur, rub. GASTROINTESTINAL: Abdomen soft, nontender, nondistended. No rebound tenderness or guarding. No CVA tenderness. MUSCULOSKELETAL: No peripheral edema. NEUROLOGIC: Patient is awake and alert. Facies were symmetrical. Constitutional Vital Signs, click to edit/add: Last Vital Signs Temp 97 F L 06/30/25 10:05 Pulse 69 06/30/25 10:05 Resp 14 06/30/25 10:05 BP 128/78 06/30/25 10:05 Pulse Ox 95 06/30/25 10:05 O2 Del Method Room Air 06/30/25 10:05 Course Vital Signs Vital signs: Vital Signs Pulse Rate 62 06/30/25 09:08 Respiratory Rate 14 06/30/25 09:08 Blood Pressure 123/81 06/30/25 09:08 Pulse Oximetry 99 06/30/25 09:08 Oxygen Delivery Method Room Air 06/30/25 09:08 Temperature 97 F L 06/30/25 10:05 Pulse Rate 69 06/30/25 10:05 Respiratory Rate 14 06/30/25 10:05 Blood Pressure 128/78 06/30/25 10:05 Pulse Oximetry 95 06/30/25 10:05 Oxygen Delivery Method Room Air 06/30/25 10:05 Medical Decision Making MDM Narrative Medical decision making narrative: Patient is a 54-year-old male, history significant for BPH and recurrent UTIs, presenting to the emergency department with 24-hour history of dysuria. Vital signs on arrival are within normal limits. He is afebrile and hemodynamically stable. Examination as noted above. Differential diagnose includes UTI, cystitis. No flank pain or CVA tenderness to suggest pyelonephritis. He has no signs of sepsis and is tolerating p.o. urinalysis was sent off for testing. Urinalysis was suggestive of UTI with greater than 100 WBCs, moderate bacteria, and cloudy urine. On review of external documentation, patient had urine culture from 05/21/2025 which grew peng susceptible Enterococcus. I do believe the patient is stable for discharge at this time. Patient's presentation is most likely consistent with UTI/cystitis. They were instructed to follow up with urology and his PCP for further care. Return precautions were given including any new or worsening symptoms. They were given a prescription for ciprofloxacin 500 mg twice daily x 7 days. Patient understands and agrees to the plan. FINAL IMPRESSION: #Acute urinary tract infection DISPOSITION: Discharged home CONDITION: Good Medical Records Medical records reviewed: Yes I reviewed the patient's medical records Lab Data Lab results reviewed: Yes I reviewed the patient's lab results Labs: Lab Results 06/30/25 Range/Units 09:08 Urine Color Lt. yellow (YELLOW) Urine Clarity Cloudy A (CLEAR) Urine pH 7.0 (5.0-9.0) Ur Specific [place] 1.015 (1.005-1.025) Urine Protein Trace (NEG/TRACE) mg/dL Urine Glucose (UA) Negative (NEGATIVE) mg/dL Urine Ketones Negative (NEGATIVE) mg/dL Urine Occult Blood Small A (NEGATIVE) Urine Nitrite Negative (NEGATIVE) Urine Bilirubin Negative (NEGATIVE) Urine Urobilinogen 0.2 (0.2-1.0) EU/dL Ur Leukocyte Esterase Moderate A (NEGATIVE) Urine RBC 2-5 A (0-2) #/HPF Urine WBC >100 A (NONE SEEN) #/HPF Ur Squamous Epith Cells Rare (NONE/RARE) #/LPF Urine Crystals None seen (None Seen) #/HPF Urine Bacteria Moderate A (NONE SEEN) #/HPF Urine Casts None seen (NONE SEEN) #/LPF Urine Mucus None seen (NONE SEEN) Ur Culture Indicated? Yes-[facility] [place] Discharge Plan Discharge Chief Complaint: Urogenital-Male Clinical Impression: Acute UTI, Benign prostatic hyperplasia Patient Disposition: Home, Self-Care Time of Disposition Decision: 09:47 Condition: Good Mode of Transportation: Private Vehicle Prescriptions / Home Meds: New ciprofloxacin HCl [Cipro] 500 mg tablet 500 mg PO BID Qty: 14 0RF Print Language: Bulgarian Instructions: Enlarged Prostate (BPH) (ED), Urinary Tract Infection in Men (ED) Referrals: Rakesh Streeter MD [Physician, Urology] - 1 week Discharge Date/Time: 06/30/25 10:07
== END 2025-06-30 10:07 | disposition home or self-care (01) ==
PROVIDERS: Emergency Provider Student in an Organized Health Care Education/Training Program
DX: N39.0 Urinary tract infection, site not specified (principal); N40.0 Benign prostatic hyperplasia without lower urinary tract symptoms; Z87.440 Personal history of urinary (tract) infections; F17.200 Nicotine dependence, unspecified, uncomplicated
CPT/HCPCS: 81001; 87086; 87088; 87186; 99283

== ENCOUNTER 2025-07-22 07:36 | Emergency (ER) | payer OTHER, SELFPAY ==
[2025-07-22 07:41] VITALS: BP 121/76; PULSE 66; TEMP 36.9; O2SAT 94; BMI 21.8
--- NOTE | 2025-07-22 07:55 | ED_ITS ---
HPI HPI - General Adult General Chief complaint: Urogenital-Male Stated complaint: uti complaints Time Seen by Provider: 07/22/25 07:51 Source: patient Mode of arrival: walk-in Limitations: no limitations History of Present Illness HPI narrative: 54-year-old male presents to the emergency department for frequency and dysuria. Started yesterday afternoon. He has a history of UTIs but has never seen a urologist. He took a Pyridium pill that he had leftover and it seemed to help with symptoms. No fever or vomiting or flank pain. Related Data Previous Rx's ?Medication ?Instructions ?Recorded ciprofloxacin HCl 250 mg tablet 250 mg PO BID #14 tabs 07/22/25 (Cipro) tamsulosin 0.4 mg capsule (Flomax) 0.4 mg PO DAILY #7 caps 07/22/25 Allergies Allergy/AdvReac Type Severity Reaction Status Date / Time No Known Drug Allergies Allergy Verified 07/22/25 07:47 Opioid HPI Opioid Management Most Recent Opioid Data: Last Pain Scale 5 Today, 07:41 Review of Systems ROS Narrative A ten point review of systems is negative except as noted above. PFSH PFSH Social History Smoking status: Current every day smoker Little interest or pleasure in doing things: not at all Feeling down, depressed, or hopeless: not at all Exam Narrative Exam Narrative: Nurses note and vital signs reviewed and patient is not hypoxic. General:The patient appears well and in no apparent distress.Patient is resting comfortably on cart. Skin:Warm, dry, no pallor noted.There is no rash noted. Head:Normocephalic, atraumatic Eye: Normal conjunctiva, no drainage Ears, Nose, Mouth, and Throat: oral mucosa is moist. Nares patent. Cardiovascular:Regular Rate and Rhythm Respiratory:Patient is in no distress, no accessory muscle use, lungs are clear to auscultation, no wheezing, rales or rhonchi Back:non-tender, no CVA tenderness bilaterally to percussion. GI: Soft and nontender Musculoskeletal: The patient has no evidence of calf tenderness, no pitting edema, symmetrical pulses noted bilaterally Neurological:A&O, normal speech Psychiatric:Cooperative Constitutional Vital Signs, click to edit/add: Last Vital Signs Temp 98.4 F 07/22/25 07:41 Pulse 66 07/22/25 07:41 Resp 16 07/22/25 07:41 BP 121/76 07/22/25 07:41 Pulse Ox 94 L 07/22/25 07:41 O2 Del Method Room Air 07/22/25 07:41 Course Vital Signs Vital signs: Vital Signs Temperature 98.4 F 07/22/25 07:41 Pulse Rate 66 07/22/25 07:41 Respiratory Rate 16 07/22/25 07:41 Blood Pressure 121/76 07/22/25 07:41 Pulse Oximetry 94 L 07/22/25 07:41 Oxygen Delivery Method Room Air 07/22/25 07:41 Temperature 98.4 F 07/22/25 07:41 Pulse Rate 66 07/22/25 07:41 Respiratory Rate 16 07/22/25 07:41 Blood Pressure 121/76 07/22/25 07:41 Pulse Oximetry 94 L 07/22/25 07:41 Oxygen Delivery Method Room Air 07/22/25 07:41 Medical Decision Making MDM Narrative Medical decision making narrative: UTIs identified on urinalysis. He is requesting Cipro and Flomax because these worked for him so he was prescribed these and referred to urology. He reports no concern whatsoever for an STD. Treatment diagnosis and follow-up were discussed with the patient. Differential Diagnosis Differential Diagnosis: UTI, cystitis Lab Data Lab results reviewed: Yes I reviewed the patient's lab results Labs: Lab Results 07/22/25 Range/Units 07:47 Urine Color [place] A (YELLOW) Urine Clarity Slightly cloudy A (CLEAR) Urine pH Color interference A (5.0-9.0) Ur Specific [place] 1.030 A (1.005-1.025) Urine Protein Color interference A (NEG/TRACE) mg/dL Urine Glucose (UA) Color interference A (NEGATIVE) mg/dL Urine Ketones Color interference A (NEGATIVE) mg/dL Urine Occult Blood Color interference A (NEGATIVE) Urine Nitrite Color interference A (NEGATIVE) Urine Bilirubin Color interference A (NEGATIVE) Urine Urobilinogen Color interference A (0.2-1.0) EU/dL Ur Leukocyte Esterase Color interference A (NEGATIVE) Urine RBC 2-5 A (0-2) #/HPF Urine WBC 20-50 A (NONE SEEN) #/HPF Ur Squamous Epith Cells Few A (NONE/RARE) #/LPF Urine Crystals None seen (None Seen) #/HPF Urine Bacteria Small A (NONE SEEN) #/HPF Urine Casts None seen (NONE SEEN) #/LPF Urine Mucus Trace A (NONE SEEN) Ur Culture Indicated? Yes-[facility] [place] Discharge Plan Discharge Chief Complaint: Urogenital-Male Clinical Impression: Urinary tract infection Patient Disposition: Home, Self-Care Time of Disposition Decision: 08:19 Condition: Good Mode of Transportation: Private Vehicle Prescriptions / Home Meds: New ciprofloxacin HCl [Cipro] 250 mg tablet 250 mg PO BID Qty: 14 0RF tamsulosin [Flomax] 0.4 mg capsule 0.4 mg PO DAILY Qty: 7 0RF Print Language: Serbian Instructions: Urinary Tract Infection in Men (ED) Referrals: Physician,Non-Staff, [Primary Care Provider] - 1 week Rakesh Streeter MD [Physician, Urology] - 1 week
[2025-07-22 08:08] LABS: Glucose Urine UA COLOR INTERFERENCE mg/dL (NEGATIVE)
--- OUTSIDE RECORDS SUMMARY | 2025-07-22 08:11 | XMS_ITS | CCD ---
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 Name Role Phone PAY ., DR ZEPEDA [...] Consulting Unavailable Marker Irina LEE Attending Provider [phone] Irina Nagel DO Attending Provider Katelyn Monzon DO Attending Provider Unavailab le Katelyn Monzon DO Attending Provider Irina Nagel DO Attending Provider Katelyn Monzon DO Attending Provider Pablo Stovall DO Attending Provider [phone] Pablo Stovall Attending Unavailable Pablo Stovall Admitting Unavailable Katelyn Monzon Attending Unavailable Katelyn Monzon Admitting Unavailable Irina Nagel Admitting Unavailable Irina Nagel Attending Unavailable Katelyn Monzon Admitting Unavailable Katelyn Monzon Attending Unavailable Irina Nagel Attending Unavailable Irina Nagel Admitting Unavailable Problems Active Problems Problem Classification [...] Test Name Value Interpretation Reference Range Facil [facility] Urine Cultureon 06-30-2025 Bacteria identified Cx Nom (U) ORGANISM: Enterococcus faecalis (O:ENTFAC) Lucas Count >100,000 Aerobic CONRADO Charge (PCMIC38) ----- [...] RESISTANT TO ALL B-LACTAM DRUGS. PERFORMED BY: [place] [id number] [place] [address] PATHOLOGIST CLINICAL SERVICES MANAGER LAMAR TINEO M.D. Normal [facility] Comment on above: Performed By: #### C UU #### [place] [id number] [facility] Urine Cultureon 05-24-2025 Bacteria identified Cx Nom (U) ORGANISM: Enterococcus faecalis (O:ENTFAC) Lucas Count >100,000 Aerobic CONRADO Charge (PCMIC38) ----- [...] RESISTANT TO ALL B-LACTAM DRUGS. PERFORMED BY: [place] [address] PATHOLOGIST CLINICAL SERVICES MANAGER LAMAR TINEO M.D. Normal [facility] Comment on above: Performed By: #### C UU #### [address] Urine cultureOrdered By: Cornelius Monzon on 05-24-2025 Bacteria identified Cx Nom (U) Enterococcus faecalis Abnormal [facility] Urine Cultureon 03-04-2025 Bacteria identified Cx Nom (U) ORGANISM: Staphylococcus epidermidis (O:STAEPI) Lucas Count >100,000 Aerobic CONRADO Charge (PCMIC38) ----- [...] RESISTANT TO ALL B-LACTAM DRUGS. PERFORMED BY: [place] [address] PATHOLOGIST CLINICAL SERVICES MANAGER DAPHNEY Block [facility] Comment on above: Performed By: #### C UU #### [address] Urine cultureOrdered By: Natasha alfonso Marker on 03-04-2025 Bacteria identified Cx Nom (U) Staphylococcus epidermidis Abnormal [facility] Urine Cultureon 01-17-2025 Bacteria identified Cx Nom (U) ORGANISM: Staphylococcus epidermidis (O:STAEPI) Lucas Count >100,000 Aerobic CONRADO Charge (PCMIC38) ----- [...] RESISTANT TO ALL B-LACTAM DRUGS. PERFORMED BY: [place] [address] PATHOLOGIST CLINICAL SERVICES MANAGER DAPHNEY CONTE M.D. Normal [facility] Comment on above: Performed By: #### C UU #### [facility] [address] [place] [address] Urine cultureOrdered By: Cornelius Monzon on 01-17-2025 Bacteria identified Cx Nom (U) Abnormal [facility] Urine Cultureon 12-10-2024 Bacteria identified Cx Nom (U) ORGANISM: Staphylococcus epidermidis (O:STAEPI) Lucas Count >100,000 Aerobic CONRADO Charge (PCMIC38) ----- [...] RESISTANT TO ALL B-LACTAM DRUGS. PERFORMED BY: [address] [address] PATHOLOGIST CLINICAL SERVICES MANAGER DAPHENY CONTE M.D. Normal [facility] Comment on above: Performed By: #### C UU #### [facility] [address] [place], [place] [id number] [facility] Urine cultureOrdered By: Natasha kaden Marker on 12-10-2024 Bacteria identified Cx Nom (U) Abnormal [facility] ER URINE PROFILEon 3 Bilirubin Ql (U) Negative Normal NEGATIVE [facility] Comment on above: Performed By: #### E RUR #### [facility] [address] [place] [address] Dr. Norbert Mcclure Clarity (U) CLEAR Normal CLEAR [facility] Comment on above: Performed By: #### E RUR #### [facility] [address] [place] [address] Dr. Norbert Mcclure Color (U) YELLOW Normal YELLOW [facility] Comment on above: Performed By: #### E RUR #### [facility] [address] [place] [address] Dr. Norbert Mcclure ERUTAYLOR A micrscopic examination will be performed if indicated. Normal [facility] Comment on above: Performed By: #### E RUR #### [facility] [address] [place] [address] Dr. Norbert Mcclure Glucose Ql (U) Negative Normal NEGATIVE [facility] Comment on above: Performed By: #### E RUR #### [facility] [address] [place] [address] Dr. Norbert Mcclure Hemoglobin Ql (U) Negative Normal NEGATIVE [facility] Comment on above: Performed By: #### E RUR #### [facility] [address] [place] [address] Dr. Norbert Mcclure Ketones Ql (U) Negative Normal NEGATIVE [facility] Comment on above: Performed By: #### E RUR #### [facility] [address] [place] [address] Dr. Norbert Mcclure LEUKOCYTES Negative Normal NEGATIVE [facility] Comment on above: Performed By: #### E RUR #### [facility] [address] [place] [address] Dr. Norbert Mcclure Nitrite Ql (U) Negative Normal NEGATIVE [facility] Comment on above: Performed By: #### E RUR #### [facility] [address] [place] [address] Dr. Norbert Mcclure pH (U) 6.0 [pH] Normal 5-9 [facility] Comment on above: Performed By: #### E RUR #### [facility] [address] [address] [address] Norbert Mcclure SPEC GRAVITY 1.010 Normal 1.005-<=1.025 [facility] Comment on above: Performed By: #### E RUR #### [facility] [address] [place] [address] Dr. Norbert Mcclure UA PROTEIN Negative Normal NEGATIVE/ TRACE [facility] Comment on above: Performed By: #### E RUR #### [facility] [address] [place] [address] Dr. Norbert Mcclure UR MICRO IND NOT INDICATED Normal [facility] Comment on above: Performed By: #### E RUR #### [facility] [address] [place] [address] Dr. Norbert Mcclure Urobilinogen Qn (U) 0.2 {Dara'U}/dL Normal 0.2 - 1. 0 [facility] Comment on above: Performed By: #### E RUR #### [facility] [address] [place] [address] Dr. Norbert Mcclure XR LSPINE 2_3 VIEWSon [...] by: ELIZABETH CHOW Date: 2022-05-22 10:10 Normal [facility] Encounters Encounter Date Encounter Type Care Provider Facility Start: 06-30-2025 End: 06-30-2025 ambulatory Pablo Sheets [facility] Work Phone: Start: 06-30-2025 End: 06-30-2025 Departed Referred Pablo Sheets DO -[facility] Start: 05-24-2025 End: 05-24-2025 ambulatory Katelyn Monzon [facility] Work Phone: Start: 05-24-2025 End: 05-24-2025 Departed Referred Katelyn Garcia DO -[facility] Start: 03-04-2025 End: 03-04-2025 ambulatory Irinakaden Pierce Marker [facility] Work Phone: Start: 03-04-2025 End: 03-04-2025 Departed Referred Irina Marker DO Work Phone: [facility] Start: 01-17-2025 End: 01-17-2025 ambulatory Katelyn Monzon [facility] Work Phone: Start: 01-17-2025 End: 01-17-2025 Departed Referred Irina Marker DO Work Phone: [facility] Start: 12-10-2024 End: 12-10-2024 ambulatory Irina Pierce Marker [facility] Work Phone: Start: 12-10-2024 End: 12-10-2024 Departed Referred Irina Marker DO Work Phone: [facility] Start: 12-03-2022 End: 12-03-[address] KATELYN NEW . Facility: Start: 05-22-2022 End: 05-22-2022 ambulatory NONE LISTED REQUEST Facility: Start: 03-27-2022 End: 03-27-2022 ambulatory NONE LISTED REQUEST Facility: Start: 02-21-2022 End: 02-21-2022 ambulatory NONE LISTED REQUEST Facility: Procedures Date Procedure Procedure Detail Performing Clinician Start: 05-24-2025 Urine culture Katelyn douglas DO Work Phone: Start: 03-04-2025 Urine culture Irina borges DO Work Phone: Start: 01-17-2025 Urine culture Irina borges DO Work Phone: Start: 12-10-2024 Urine culture Irina borges DO Work Phone: Plan of Treatment Date Care Activity Detail Author Start: 06-30-2025 Bacteria identified in Urine by Culture Urine Culture [facility] Start: 06-30-2025 Urine culture [facility] Start: 05-24-2025 Urine culture [facility] Start: 05-24-2025 Bacteria identified in Urine by Culture Urine Culture [facility] Start: 03-04-2025 Bacteria identified in Urine by Culture Urine Culture [facility] Start: 03-04-2025 Urine culture [facility] Start: 01-17-2025 Bacteria identified in Urine by Culture Urine Culture [facility] Start: 01-17-2025 Urine culture [facility] Start: 12-10-2024 Urine culture [facility] Start: 12-10-2024 Bacteria identified in Urine by Culture Urine Culture [facility] Payers Date Payer Category Payer Self-pay [id number] 1970 Unknown [id number] 2.16.84 [id number] 1970 Unknown [id number] 2.16.84 [id number] 1970 Unknown [id number] 2.16.84 [id number] 1970 Unknown [id number] 2.16.84 [id number] 1959 Unknown [id number] 1959 Unknown [id number] Unknown [employer] [id number] Unknown [id number] 2.16.8 [id number] Unknown [id number] 2.16.8 [id number] Unknown [id number] 2.16.8 [id number] Unknown [id number] 2.16.8 [id number] Unknown [id number] 2.16.8 [id number] Social History Date Type Detail Facility Tobacco smoking stat [facility] Unknown if ever smoked [facility] Work Phone: Start: 12-12-2024 End: 03-05-2025 Sex Male (finding) [facility] Start: 1970 Sex Assigned At Male [facility] Clinical Note 03-27-2022 Note Date & [...] authenticated by: GLENN VELA Date: 2022-03-27 10:58 [facility] Evaluation note Note Date & Type Note Facility Evaluation note No assessment information availa ble [facility] Work Phone: Reason for referral (narrative) Note Date & Type Note Facility Reason for referral (narrative) No reason for referral information available [facility] Work Phone: Summary Purpose Family History [...] and content) DATE CREATED AUTHOR 01/16/2023 [facility] DATE CREATED AUTHOR AUTHOR'S OMMO ATION 07/04/2025 [facility] Care Teams (unrecognized sec tion and content) Team Status: Inactive Member Role Status Dates Irinakaden Nurnessa Nagel , DO Attending Provider Active Start: [...] May 24, 2025 End: May 24, 2025 Team Status: Inactive Member Role Status Dates Pablo Stovall , DO Attending Provider Active Sta rt: June 30, 2025 End: June 30, 2025 Goals (unrecognized section and content) Goals [...] BE BASED ON THE PRIMARY CLINICAL RECORDS. [employer] [facility]. provides no warranty or guarantee of the accuracy or completeness of information in this document.
[2025-07-22 08:12] LABS: Cast Seen? NONE SEEN #/LPF (NONE SEEN); Crystals Seen? None Seen #/HPF (None Seen); Urine Culture Indicated YES-FRMC
[2025-07-22] MEDS: TAMSULOSIN HCL 0.4 MG CAPSULE PO (08:25)
[2025-07-22] MEDS: CIPROFLOXACIN HCL 500 MG TABLET PO (08:25)
[2025-07-22 08:27] VITALS: BP 121/83; PULSE 64; O2SAT 97
== END 2025-07-22 08:30 | disposition home or self-care (01) ==
PROVIDERS: Emergency Provider Emergency Medicine
DX: N39.0 Urinary tract infection, site not specified (principal); Z87.440 Personal history of urinary (tract) infections; F17.200 Nicotine dependence, unspecified, uncomplicated
CPT/HCPCS: 81001; 87086; 87088; 87186; 99283

== ENCOUNTER 2025-08-17 08:52 | Emergency (ER) | payer OTHER, SELFPAY ==
--- OUTSIDE RECORDS SUMMARY | 2025-08-17 08:59 | XMS_ITS | CCD ---
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 Name Role Phone PAY ., DR [...] Consulting Unavailable Marker Irina LEE Attending Provider [phone] Marker DOIrina Attending Provider Katelyn Monzon DO Attending Provider Unavailab Katelyn Hobbs DO Attending Provider Marker DOIrina Attending Provider [phone] Katelyn Monzon DO Attending Provider Pablo Stovall DO Attending Provider [phone] Irina Nagel Admitting Unavailable Marker, Irina Pierce Attending Unavailable Katelyn Monzon Attending Unavailable Katelyn Monzon Admitting Unavailable MarkerIrina Admitting Unavailable MarkerIrina Attending Unavailable Katelyn Monzon Attending Unavailable Katelyn Monzon Admitting Unavailable Pablo Stovall Admitting Unavailable Pablo Stovall Attending Unavailable Katelyn Monzon Admitting Unavailable Katelyn Monzon Attending Unavailable Rakesh VILLAFUERTE Attending Unavailable Rakesh VILLAFUERTE Attending Unavailable Medications Current Medications MedicationDrug Class(es)DatesSig (Normalized)Sig (Original)tamsulosin hydrochloride 0.4 mg oral capsule (1 source)alpha-Adrenergic BlockerStart: 41-50-5671orag 1 capsule by mouth once dailytamsulosin 0.4 mg Cap 0.4 mg = 1 cap(s), Oral, Daily, # 90 cap(s), Refills(s) 0 Start Date: 08/10/25 Status: Ordered Quantity: 90.0 Unit: cap(s) Repeat number: 1 Problems Active Problems Problem ClassificationProblemDateDocumented DateEpisodic/ChronicDiseases of mouth; excluding dental (1 source)Lip pzpuxiur86-21-6804GtmwafakQoigijynkmk of prostate (1 source)Benign prostatic hyperplasiaOnset: hronic Nonspecific chest pain (1 source)Atypical chest zodu84-64-3077VvsnrtsfLbxvy gastrointestinal disorders (1 source)Nqqmsduwsmbe99-65-7286CwdaylkaHodtlvyhg-xagmpxq disorders (1 source)Nicotine dependence, cigarettes, uncomplicated; Translations: [NICOTINE DEPEND CIGARETTES UNCOMP]Onset: 05-36-0200UvuzonxFrxqlnbuaivz (3 sources)LOW BACK PAIN, UNSPECIFIED; Translations: [LOW BACK PAIN, UNSPECIFIED]Onset: 40-57-1757Uvboeix tract infections (1 source)Urinary tract infectious diseaseOnset: 612323-67-3434Hugnzbtc Past or Other Problems Problem ClassificationProblemDateDocumented DateEpisodic/ChronicGenitourinary symptoms and ill-defined conditions (2 sources)Retention of urine, unspecified; Translations: [Delay when starting to pass urine]Onset: 846892-12-3060CrzxsjxnUjjwp non-traumatic joint disorders (3 sources)Pain in right knee; Translations: [PAIN IN RIGHT KNEE]Onset: 02-41-3321HlgbeabuOikep non-traumatic joint disorders (1 source)Effusion, right knee; Translations: [EFFUSION RIGHT KNEE]Onset: 05-55-1122SrttcdrjZivguuvs codes; unclassified (1 source)Chronic back painOnset: 406824-50-7445RwlvpmuvFduo and subcutaneous tissue infections (4 sources)Cutaneous abscess of perineum; Translations: [CUTANEOUS ABSCESS OF PERINEUM]Onset: 58-11-9670BnwjjfkeAoxlxzrrrewc (1 source)LOW BACK PAIN, UNSPECIFIED; Translations: [LOW BACK PAIN, UNSPECIFIED] Onset: 12-03-2022 Results Test NameValueInterpretationReference RangeFacilityUrine Cultureon 07-22-2025 Bacteria identified Cx Nom (U)ORGANISM: Staphylococcus epidermidis (O:STAEPI) [place] Count >100,000 Aerobic CONRADO Charge (PCMIC38) SUSCEPTIBILITY ORGANISM: O:STAEPI ANTIBIOTIC INTERPRETATION CONRADO Ciprofloxacin R >2 Levofloxacin R >4 Nitrofurantoin S <32 Oxacillin R >2 Penicillin R >2 Tetracycline S <4 Trimethoprim/Sulfamethoxazole S Vancomycin I 16 S = SUSCEPTIBLE I = INTERMEDIATE R [...] RESISTANT TO ALL B-LACTAM DRUGS. PERFORMED BY: [place] [address] PATHOLOGIST PRESS FEEDER LAMAR TINEO M.D.[facility] Physician GroupComment on above: Performed By: #### CUU #### [place] [address] USAUrine Cultureon 61-02-0421Kxwaszxe identified Cx Nom (U) ORGANISM: Enterococcus faecalis (O:ENTFAC) [place] Count >100,000 Aerobic CONRADO Charge (PCMIC38) SUSCEPTIBILITY ORGANISM: O:ENTFAC ANTIBIOTIC INTERPRETATION CONRADO Ampicillin S [...] RESISTANT TO ALL B-LACTAM DRUGS. PERFORMED BY: [place] [address] PATHOLOGIST PRESS FEEDER LAMAR TINEO M.D.[facility] Physician GroupComment on above: Performed By: #### CUU #### [address]Urine cultureOrdered By: Pablo Stovall on 01-62-0381Niknairv identified Cx Nom (U)Enterococcus faecalisAbnoWVUMedicine Harrison Community HospitalUrine Cultureon 78-32-4229Ntmgfxxw identified Cx Nom (U)ORGANISM: Enterococcus faecalis (O:ENTFAC) [place] Count >100,000 Aerobic CONRADO Charge (PCMIC38) SUSCEPTIBILITY ORGANISM: O:ENTFAC ANTIBIOTIC INTERPRETATION CONRADO Ampicillin S [...] RESISTANT TO ALL B-LACTAM DRUGS. PERFORMED BY: [place] [address] PATHOLOGIST PRESS FEEDER LAMAR TINEO M.D.[facility] Physician GroupComment on above: Performed By: #### CUU #### [address] [address] USAUrine cultureOrdered By: Katelyn Monzon on 05-24-2025 Bacteria identified Cx Nom (U)Enterococcus faecalisAbSheltering Arms HospitalUrine Cultureon 25-84-9438Inrmffjy identified Cx Nom (U)ORGANISM: Staphylococcus epidermidis (O:STAEPI) [place] Count >100,000 Aerobic CONRADO Charge (PCMIC38) SUSCEPTIBILITY ORGANISM: O:STAEPI ANTIBIOTIC INTERPRETATION CONRADO Ciprofloxacin R >2 Daptomycin S 1 Levofloxacin I 4 Linezolid S <1 Nitrofurantoin S <32 Oxacillin R >2 Penicillin R >2 Tetracycline R >8 Trimethoprim/Sulfamethoxazole S <0.5 Vancomycin S 1 S = [...] RESISTANT TO ALL B-LACTAM DRUGS. PERFORMED BY: [place] [id number] PATHOLOGIST PRESS FEEDER DAPHNEY CONTE M.D.[facility] Physician GroupComment on above: Performed By: #### CUU #### [facility] [address] [place] [address] USAUrine cultureOrdered By: Irina Nagel on 03-04-2025 Bacteria identified Cx Nom (U)Staphylococcus epidermidisAbSheltering Arms HospitalUrine Cultureon 06-10-3437Axdejlzo identified Cx Nom (U) ORGANISM: Staphylococcus epidermidis (O:STAEPI) [place] Count >100,000 Aerobic CONRADO Charge (PCMIC38) SUSCEPTIBILITY ORGANISM: O:STAEPI ANTIBIOTIC INTERPRETATION CONRADO Ciprofloxacin S <1 Daptomycin S <0.5 Levofloxacin S <1 Linezolid S <1 Nitrofurantoin S <32 Oxacillin R >2 Penicillin R 2 Tetracycline S <4 Trimethoprim/Sulfamethoxazole R >2 Vancomycin S 1 S = [...] RESISTANT TO ALL B-LACTAM DRUGS. PERFORMED BY: [place] [address] PATHOLOGIST PRESS FEEDER DAPHNEY CONTE M.D.[facility] Physician GroupComment on above: Performed By: #### CUU #### [address]Urine cultureOrdered By: Katelyn Monzon on 01-17-2025 Bacteria identified Cx Nom (U)[facility] HospitalUrine Cultureon 95-68-0680Tbbsnmoz identified Cx Nom (U)ORGANISM: Staphylococcus epidermidis (O:STAEPI) [place] Count >100,000 Aerobic CONRADO Charge (PCMIC38) SUSCEPTIBILITY ORGANISM: O:STAEPI ANTIBIOTIC INTERPRETATION CONRADO Ciprofloxacin R >2 Daptomycin S <0.5 Levofloxacin R >4 Linezolid S <1 Nitrofurantoin S <32 Oxacillin R >2 Penicillin R >2 Tetracycline R >8 Trimethoprim/Sulfamethoxazole S <0.5 Vancomycin S 1 S = [...] RESISTANT TO ALL B-LACTAM DRUGS. PERFORMED BY: [facility] [address] [place] [address] PATHOLOGIST PRESS FEEDER DAPHNEY CONTE M.D.NormalSanta Rosa Medical Center Physician GroupComment on above: Performed By: #### CUU #### [facility] [address] StreetUrine cultureOrdered By: Irina Nagel on 12-10-2024 Bacteria identified Cx Nom (U)AbnormalCleveland Clinic Euclid HospitalER URINE PROFILEon 71-78-3613Rkpyydexw Ql (U)NegativeNormalNEGOur Lady of Mercy Hospital - Anderson Comment on above:Performed By: #### ERUR #### [facility] [address] [place] [address] Dr. Norbert Gibson (U)CLEARNormalCLEARKettering Health Main CampusComment on above: Performed By: #### ERUR #### [facility] [address] [place] [address] Dr. Norbert Mcneill (U)YELLOWNormalYELLOWKettering Health Main CampusComment on above: Performed By: #### ERUR #### [facility] [address] [address] [address] Norbert Arambula micrscopic examination will be performed if indicated. NormalKettering Health Main CampusComment on above:Performed By: #### ERUR #### [facility] [address] [address] [address] Norbert McclureGlucose Ql (U)NegativeNormalNEGOur Lady of Mercy Hospital - AndersonComment on above:Performed By: #### ERUR #### [facility] [address] [place] [address] Dr. Norbert McclureHemoglobin Ql (U)NegativeNormalNEGOur Lady of Mercy [facility] Comment on above:Performed By: #### ERUR #### [facility] [address] [address] [address] Norbert Omer Ql (U)NegativeNormalNEGATIVEKettering Health Main CampusComment on above:Performed By: #### ERUR #### [facility] [address] [place] [address] Dr. Norbert McclureLEUKOCYTESNegativeNormalNEGATIVEThe South Yarmouth HospitalComment on above:Performed By: #### ERUR #### [facility] [address] [place] [address] Dr. Norbert Sepulvedatreric Ql (U)NegativeNormalNEGATIVEKettering Health Main CampusComment on above:Performed By: #### ERUR #### [facility] [address] [place] [address] Dr. Norbert McclurepH (U)6.0 [pH]Normal5-9The [facility] HospitalComment on above: Performed By: #### ERUR #### [facility] [address] [place] [address] Dr. Norbert McclureSPEC GRAVITY1.923Amgqow2.005-<=1.025The [facility] Memorial HospitalComment on above:Performed By: #### ERUR #### [facility] [address] [place] [address] Dr. Norbert Jaquez PROTEINNegativeSaint Luke'S North Hospital–SmithvillealNEGATIVE/ TRACEThe [facility] Comment on above:Performed By: #### ERUR #### [facility] [address] [place] [address] Dr. Norbert Palma MICRO INDNOT INDICATEDNoTrinity Health SystemComment on above:Performed By: #### ERUR #### [facility] [address] [place] [address] Dr. Norbert Menchacabilino Qn (U)0.2 {Dara'U}/dLNormal0.2 - 1.0The [facility] HospitalComment on above:Performed By: #### ERUR #### [facility] [address] [place] [address] Dr. Norbert McclureXR LSPINE 2_3 VIEWSon 34-54-9062RI LSPINE 2_3 VIEWSEXAMINATION: XR LSPINE 2_3 VIEWS HISTORY: Pain ; [...] Electronically authenticated by: ELIZABETH CHOW Date: 2022-05-22 10:10[facility] Encounters Encounter DateEncounter TypeCare ProviderFacilityStart: 34-35-6749frnjbqubvnpradeep VILLAFUERTEFacility:EU [facility]ioueStart: 08-13-2025 End: 77-06-2233bdqmcqwgmiNfcvtpn R WATERSFacility:EU [facility]oueStart: 08-13-2025 End: 77-06-2751Kqxagqa encounter procedureRakesh VILLAFUERTE [facility] start: 79-20-3771eglgwdracgRihfyxd WATERSFacility:EU [facility]ioueStart: 07-22-2025 End: 06-78-2377ztkidipnckKosbplz D [facility] Work Phone: Start: 07-22-2025 End: 20-37-7329Ujhquhak Prashanth Garcia DO-LAB [facility] Start: 06-30-2025 End: 48-41-9431ruikoqjrowHckq M [facility] Work Phone: Start: 06-30-2025 End: 68-54-7902Mkmikgep Drew Sheets DO-LAB [facility] Start: 05-24-2025 End: 00-52-5599fhwunpajegVtqsysp D [facility] Work Phone: Start: 05-24-2025 End: 50-22-6218Tafdjpnl Prashanth Garcia DO-LAB [facility] Start: 03-04-2025 End: 65-97-2442ktglxlpsldYmlgxup [facility] Work Phone: Start: 03-04-2025 End: 61-28-3786Jybgspdy ReferredMelissa Marker DO Work Phone: [facility]-LAB Path Spec [facility]ospStart: 01-17-2025 End: 33-74-7558hrzgnldhiwHflykef D [facility] Work Phone: Start: 01-17-2025 End: 61-78-7273Yjxjajnt ReferredMelissa Marker DO Work Phone: [facility]-LAB [facility]ospStart: 12-10-2024 End: 07-19-8645wouqgosfcgGugcvsz [facility] Work Phone: Start: 12-10-2024 End: 66-82-6711Hdmozkvx ReferredMelissa Marker DO Work Phone: [facility]-LAB Path Spec [facility]ospStart: 12-03-2022 End: 17-05-5349dnnsfnhdxgEW KATELYN NEW .Facility:Q2Vncyx: 05-22-2022 End: 70-87-8325eumkghbzfxJK NONE LISTED REQUESTFacility:U2Plufc: 03-27-2022 End: 88-06-8328xyweeiylbyJD NONE LISTED REQUESTFacility:X0Zvrtl: 02-21-2022 End: 70-12-9007ryfgcmbzcmPF NONE LISTED REQUESTFacility:H1 Procedures DateProcedureProcedure DetailPerforming ClinicianStart: 58-84-9629Yccqi reuben Monzon DO Work Phone: Start: 88-75-3261Bedkz Tabitha Monzon DO Work Phone: Start: 80-70-1936Wlpdb cultureMelissa Marker DO Work Phone: start: 69-85-9897Fzgbs cultureMelissa Marker DO Work Phone: start: 76-01-9622Uorty cultureMelissa Marker DO Work Phone: Plan of Treatment DateCare ActivityDetailAuthorStart: 30-28-6178Ggvtjbbq identified in Urine by CultureOhioHealth Riverside Methodist Hospitaltart: 95-64-5606Fqnba [facility] Centertart: 35-31-1238Dhqafgwi identified in Urine by CultureOhioHealth Riverside Methodist Hospitaltart: 06-30-2025 Urine [facility] Centertart: 34-59-9403Fcnrw [facility] Centertart: 02-06-6423Dflvicas identified in Urine by CultureOhioHealth Riverside Methodist Hospitaltart: 03-04-2025 Bacteria identified in Urine by CultureOhioHealth Riverside Methodist Hospitaltart: 31-77-5788DtgxbHarrison Community Hospitaltart: 97-79-2591Iffeflqr identified in Urine by CultureOhioHealth Riverside Methodist Hospitaltart: 11-01-3642FgpdpKettering Health [facility] Center Start: 61-81-5047Pbslj [facility] Centertart: 12-10-2024 Bacteria identified in Urine by CultureLakeHealth [facility] Payers DatePayer CategoryPayerPolicy [id number]-yua [id number] Health Insurance [id number] 2.1.115115.3.57[id number] 2.16.840.1.638677.3.57[id number] 2.16.840.1.081963.3.57[id number] 2.16.0.1.719761.3.57[id number] 2.16.0.1.472929.3.57[id number] UnknownReverify [id number] 2.16.840.1.46[id number] 2.16.840.1.5[id number] 2.16.840.1.790243.3.579.2.531 [id number] 2.16.840.1.3[id number] 2.16.840.1.6[id number] 2.16840.1.292756.3.579.2.531 Social History DateTypeDetailFacilityTobacc smoking status NHISUnknown if ever smokedSelect [facility] Work Phone: Start: 12-12-2024 End: 94-08-5496NkoOwas (finding)[facility] Hospitaltart: 83-97-8983Wis Assigned At Mer[facility] HealthTobacc smoking statusExec[facility] Dis[facility] instructions 07-23-2025 Note Date & DvywZejiTibpiqql97-56-9316 Hospital Discharge instructions Follow Up Care 07/23/2025 11:30:39 With:Rakesh VILLAFUERTE MD, URL Address: [address] [place] [address] [place] [address] When: Unknown [facility] Clinical Note 03-27-2022 Note Date & BjcvKryoNzfmxjfz32-82-5031 NotePROCEDURE: XR KNEE RT 4V or > COMPARISON: None. HISTORY: Bone [...] Electronically authenticated by: GLENN VELA Date: 2022-03-27 10:58[facility] Evaluation + Plan note Note Date & TypeNoteFacilityEvaluation + Plan note Future Appointments Appointment Date:08/30/2025 11:00:00 AM Scheduled Provider:Rakesh VILLAFUERTE MD Location:[facility] Appointment Type:URO New Patient [facility] Evaluation note Note Date & TypeNoteFacilityEvaluation noteNo assessment information available [facility] Work Phone: Hospital course Narrative Note Date & TypeNoteFacilityHospital course Narrative No data available for this section [facility] Progress note Note Date & TypeNoteFacilityProgress note No data available for this section [facility] Reason for referral (narrative) Note Date & TypeNoteFacilityReason for referral (narrative)No reason for referral information availableSelect Medical Special[facility] Work Phone: Summary Purpose Family History No Family History Records FoundNo Family History Records Found No data available for this section No Family History Records Found Advance Directives No Advanced Directives Records FoundNo Advanced Directives Records FoundNo Advanced Directives Records Found Chief Complaint and Reason for Visit Chief Complaint Admit Date Unknown May 24, 2025 5:01 pm Unknown June 30, 2025 9:08am Unknown July 22, 2025 7:47am Chief Complaint Admit Date Unknown December 10, 2024 10:05pm Unknown January 17, 2025 9:0 2am Unknown March 04, 2025 5:25am Additional Source Comments (unrecognized sect ion and content) No Status Records FoundNo Status Records FoundNo Status Records Found INFORMATION SOURCE (unrecogn ized section and content) DATE CREATED AUTHOR 01/16/2023 [facility] DATE CREATED AUTHOR AUTHOR'S ORGANIZ ATION 07/29/2025 [facility] DATE CREATED AUTHOR AUTHOR'S ORGANIZ ATION 08/15/2025 [facility] Care Teams (unrecognized sec tion and content) Team Status: Inactive Member Role Status Dates Irina Nagel DO Attending Provider Active Start: December 10, 2024 End: December 10, 2024 Team Status: Inactive Member Role Status Dates Katelyn Monzon DO Attending Provider Active S tart: January 17, 2025 End: January 17, 2025 Team Status: Inactive Member Role Status Dates Irina Nagel DO Attending Provider Active Start: March 04, 2025 End: March 04, 2025 Team Status: Inactive Member Role Status Dates Katelyn Monzon DO Attending Provider Active S tart: May 24, 2025 End: May 24, 2025 Team Status: Inactive Member Role Status Dates Pablo Stovall DO Attending Provider Active Sta rt: June 30, 2025 End: June 30, 2025 Team Status: Inactive Member Role Status Dates Katelyn Monzon DO Attending Provider Active S tart: July 22, 2025 End: July 22, 2025 Goals (unrecognized section and content) Goals may be documented in a n alternate sectionGoals may be documented in an alternate sectionGoals may be documented in an alternate sectionGoals may be documented in an alternate sectionGoals may be documented in an alternate sectionGoals may be documented in an alternate section No data available for this section FOR RECORDS PERTAINING TO PATIENTS WHO [...] BE BASED ON THE PRIMARY CLINICAL RECORDS. [employer] [facility]. provides no warranty or guarantee of the accuracy or completeness of information in this document.
[2025-08-17 09:01] VITALS: BP 136/73; PULSE 68; TEMP 36.6; O2SAT 99; BMI 21.8
[2025-08-17 09:23] LABS: Glucose Urine UA NEGATIVE (NEGATIVE)
[2025-08-17 09:34] LABS: Cast Seen? NONE SEEN #/LPF (NONE SEEN); Crystals Seen? None Seen #/HPF (None Seen); Urine Culture Indicated YES-FRMC
--- NOTE | 2025-08-17 09:51 | ED_ITS ---
HPI - Male Genitourinary General Chief complaint: Urogenital-Male Stated complaint: UTI COMPLAINTS Time Seen by Provider: 08/17/25 09:08 Source: patient Mode of arrival: walk-in History of Present Illness HPI Narrative: Patient presented to us with burning with urination that he noticed over the last few days he is sexually active but only with 1 partner and he have no suspicion of STD, has had multiple presentation for UTI including the last time in July 22 he is planning to see urology at August 29 Patient have no abdominal pain no fever no chills no back pain but he have burning with urination and frequency Related Data Previous Rx's ?Medication ?Instructions ?Recorded nitrofurantoin 100 mg PO BID 7 days #14 cap s 08/17/25 monohydrate/macrocrystals 100 mg capsule (Macrobid) tamsulosin 0.4 mg capsule (Flomax) 0.4 mg PO DAILY #30 caps 08/17/25 Allergies Allergy/AdvReac Type Severity Reaction Status Date / Time No Known Drug Allergies Allergy Verified 08/17/25 09:00 Review of Systems ROS Status of ROS 10 or more systems reviewed and unremark able except as noted in history and below [facility] Social History Smoking status: Current every day smoker Little interest or pleasure in doing things: not at all Feeling down, depressed, or hopeless: not at all Exam Narrative Exam Narrative: Nurses notes and vital signs reviewed and patient is not hypoxic. General: Well-appearing and in no apparent distress. Skin: Warm, dry, no pallor noted. No rash. Head: Normocephalic, atraumatic. Cardiovascular: Regular Rate and Rhythm without murmur, gallop or rub. Respiratory: No accessory muscle use or respiratory distress. GI: Abdomen is soft, non-distended. Normal bowel sounds. No masses appreciated. No tenderness to palpation. No rebound, guarding, or rigidity noted. Neurological: A&O x4. No cranial nerve dysfunction observed. No truncal ataxia. Moves all extremities. Sensation intact. Psychiatric: Cooperative and interactive. Normal mood and affect. Constitutional Vital Signs, click to edit/add: Last Vital Signs Temp 98 F 08/17/25 09:01 Pulse 68 08/17/25 09:01 Resp 16 08/17/25 09:01 BP 136/73 08/17/25 09:01 Pulse Ox 99 08/17/25 09:01 O2 Del Method Room Air 08/17/25 09:01 Course Vital Signs Vital signs: Vital Signs Temperature 98 F 08/17/25 09:01 Pulse Rate 68 08/17/25 09:01 Respiratory Rate 16 08/17/25 09:01 Blood Pressure 136/73 08/17/25 09:01 Pulse Oximetry 99 08/17/25 09:01 Oxygen Delivery Method Room Air 08/17/25 09:01 Temperature 98 F 08/17/25 09:01 Pulse Rate 68 08/17/25 09:01 Respiratory Rate 16 08/17/25 09:01 Blood Pressure 136/73 08/17/25 09:01 Pulse Oximetry 99 08/17/25 09:01 Oxygen Delivery Method Room Air 08/17/25 09:01 MDM - Male Genitourinary MDM Narrative Medical decision making narrative: Urinalysis positive for UTI but reviewing the patient previous urinalysis and culture that showed that the patient have staff epidermidis as well as E. coli positive and urine culture with multiple resistance seen on the staff epidermidis The patient was started on Macrobid which is positive in both culture to be sensitive and also started on Flomax that he stopped taking and I did explain to him that Flomax need to continue even if his symptoms for UTI stopped The patient to come back to the ER in case of fever chills or any abdominal pain also to follow-up with urology as outpatient I did explain to him the importance of follow-up because he need further evaluation because he is developing a resistant strain The patient to follow-up with the primary care within 2 to 3 days and to come back to the ER in case of any worsening of the current symptoms or any new symptoms or concerns Lab Data Labs: Lab Results 08/17/25 Range/Units 09:12 Urine Color Lt. yellow (YELLOW) Urine Clarity Cloudy A (CLEAR) Urine pH 7.0 (5.0-9.0) Ur Specific [place] 1.025 (1.005-1.025) Urine Protein 30 A (NEG/TRACE) mg/dL Urine Glucose (UA) Negative (NEGATIVE) mg/dL Urine Ketones Negative (NEGATIVE) mg/dL Urine Occult Blood Trace-i (NEGATIVE) Urine Nitrite Negative (NEGATIVE) Urine Bilirubin Negative (NEGATIVE) Urine Urobilinogen 0.2 (0.2-1.0) EU/dL Ur Leukocyte Esterase Large A (NEGATIVE) Urine RBC 2-5 A (0-2) #/HPF Urine WBC 75-100 A (NONE SEEN) #/HPF Ur Squamous Epith Cells Rare (NONE/RARE) #/LPF Urine Crystals None seen (None Seen) #/HPF Urine Bacteria Trace A (NONE SEEN) #/HPF Urine Casts None seen (NONE SEEN) #/LPF Urine Mucus None seen (NONE SEEN) Ur Culture Indicated? Yes-[facility] [place] Discharge Plan Discharge Chief Complaint: Urogenital-Male Clinical Impression: Bacterial UTI Patient Disposition: Home, Self-Care Time of Disposition Decision: 09:51 Condition: Good Prescriptions / Home Meds: New nitrofurantoin monohyd/m-cryst [Macrobid] 100 mg capsule 100 mg PO BID 7 Days Qty: 14 0RF Rx Instructions: must administer with a meal/food tamsulosin [Flomax] 0.4 mg capsule 0.4 mg PO DAILY Qty: 30 0RF Print Language: Indonesian Instructions: Urinary Tract Infection in Men (DC) Additional Instructions: Please hydrate very well and follow-up with urology In case of any abdominal pain or fever come back to the ER Referrals: Physician,Non-Staff, MD [Primary Care Provider] - 1 week Discharge Date/Time: 08/17/25 10:13
[2025-08-17] MEDS: NITROFURANTOIN MONOHYD/MAC-CRST 100 MG CAPSULE PO (10:02)
[2025-08-17] MEDS: TAMSULOSIN HCL 0.4 MG CAPSULE PO (10:02)
== END 2025-08-17 10:13 | disposition home or self-care (01) ==
PROVIDERS: Emergency Provider Emergency Medicine
DX: N39.0 Urinary tract infection, site not specified (principal); Z87.440 Personal history of urinary (tract) infections; F17.200 Nicotine dependence, unspecified, uncomplicated
CPT/HCPCS: 81001; 87086; 87088; 87186; 99283

== ENCOUNTER 2025-09-16 10:59 | Outpatient (OUT) | payer OTHER, SELFPAY ==
--- OUTSIDE RECORDS SUMMARY | 2025-09-16 11:54 | XMS_ITS | CCD ---
Author Organization [facility] [place] [facility] Team Providers Care Culvert Installer Name Role Phone PAY ., DR ZEPEDA [...] Consulting Unavailable Marker Irina LEE Attending Provider [phone] Shona DO, Irina Pierce Attending Provider Katelyn Monzon DO Attending Provider Unavailab le Katelyn Monzon DO Attending Provider [phone] Marker DO, Irina Pierce Attending Provider Katelyn Monzon DO Attending Provider [phone] Pablo Stovall DO Attending Provider [phone] Melody Aleman MD Attending Provider Irina Nagel Admitting Unavailable Irina Nagel Attending Unavailable Melody Aleman Admitting Unavailable Melody Aleman Attending Unavailable Katelyn Monzon Admitting Unavailable Katelyn Monzon Attending Unavailable Pablo Stovall Admitting Unavailable Pablo Stovall Attending Unavailable Katelyn Monzon Admitting Unavailable Katelyn Monzon Attending Unavailable Irina Nagel Admitting Unavailable MarkerIrina Attending Unavailable Katelyn Monzon Admitting Unavailable Katelyn Monzon Attending Unavailable Rakesh STREETER Primary Care Physician Rakesh STREETER Attending Unavailable Rakesh STREETER Attending Unavailable Rakesh STREETER Attending Unavailable Rakesh STREETER Admitting Unavailable Rakesh STREETER Attending Unavailable Medications Current Medications MedicationDrug Class(es)DatesSig (Normalized)Sig (Original)ciprofloxacin 500 mg oral tablet (1 source)Quinolone AntimicrobialStart: 08-30-2025 End: 75-52-9956Lbghc 500 mg Tab 500 mg = 1 tab(s), Oral, q12hr, Start this after completed Bactrim course., X 14 day(s), # 28 tab(s), Refills(s) 0, Pharmacy: [facility], 189, cm, 08/30/25 11:27:00 EST, Height/Length Dosing, 78, kg, 08/30/25 11:27:00 EST, Weight Dosing Start Date: 08/30/25 Stop Date: 09/13/25 Status: Ordered Medication Dispense Status: Completed Quantity: 28.0 Unit: tab(s) Total Allowed Fills: 1 Fills Dispensed: 0sulfamethoxazole 800 mg / trimethoprim 160 mg oral tablet (1 source)Dihydrofolate Reductase Inhibitor Antibacterial, Sulfonamide AntimicrobialStart: 08-30-2025 End: 77-54-5867Zxxtcuy D.S. 800 mg-160 mg Tab 1 tab(s), Oral, q12hr for 7 day(s), 14 tab(s), Refill(s) 0, Start this first., [facility], 189, cm, 08/30/25 11:27:00 EST, Height/Length Dosing, 78, kg,08/30/25 11:27:00 EST, Weight Dosing Start Date: 08/30/25 Stop Date: 09/06/25 Status: Ordered Medication Dispense Status: Completed Quantity: 14.0 Unit: tab(s) Total Allowed Fills: 1 Fills Dispensed: 0tamsulosin hydrochloride 0.4 mg oral capsule (3 sources)alpha-Adrenergic BlockerStart: 08-10-2025 End: 03-84-9945lmre 1 capsule by mouth once dailytamsulosin 0.4 mg Cap 0.4 mg = 1 cap(s), Oral, Daily, Stop taking if experiencing dizziness or light headedness., X 30 day(s), # 30 cap(s), Refills(s) 11, Pharmacy: [facility], 189, cm, 08/30/25 11:27:00 EST, Height/Length Dosing, 78, kg, 08/30/25 11:27:00 EST, Weight Dosing Start Date: 08/30/25 Stop Date: 08/25/26 Status: Ordered Medication Dispense Status: Completed Quantity: 30.0Unit: cap(s) Total Allowed Fills: 12 Fills Dispensed: 0 Problems Active Problems Problem ClassificationProblemDateDocumented DateEpisodic/ChronicDiseases of mouth; excluding dental (2 sources)Lip ciryuski98-67-0344KgklzughAtlvhxhwofu of prostate (4 sources)Benign prostatic hyperplasia; Translations: [Benign prostatic hyperplasia with lower urinary tract symptoms]Onset: hronic Inflammatory conditions of male genital organs (2 sources)Chronic prostatitis; Translations: [Chronic prostatitis]Onset: 11-33-2975HpwrxvaJgvzwazfwmz chest pain (2 sources)Atypical chest qvsu20-47-9050QrgwhhhvToeoz gastrointestinal disorders (2 sources)Ptaokikqvrfl18-40-4514JngrymqtRolfszvkm-wlthnwl disorders (4 sources)Nicotine dependence, cigarettes, uncomplicated; Translations: [Nicotine dependence, unspecified, uncomplicated]Onset: 40-69-0701YsfwpejBfzhkpk on above:Added secondary to documentation in Social History.Unclassified (3 sources)LOW BACK PAIN, UNSPECIFIED; Translations: [LOW BACK PAIN, UNSPECIFIED]Onset: 13-41-9979Dcypocuwdeee (1 source)Rupture of synovial popliteal cystOnset: 237949-97-1188Pifnhlg tract infections (4 sources)Urinary tract infectious disease; Translations: [Urinary tract infection, site not specified]Onset: 156942-25-4262Dqmkvhga Past or Other Problems Problem ClassificationProblemDateDocumented DateEpisodic/ChronicGenitourinary symptoms and ill-defined conditions (3 sources)Retention of urine, unspecified; Translations: [Delay when starting to pass urine]Onset: 486882-08-9844VrkaijdxBlgxj non-traumatic joint disorders (3 sources)Pain in right knee; Translations: [PAIN IN RIGHT KNEE]Onset: 91-12-3877EcevnuvlKrrkr non-traumatic joint disorders (1 source)Effusion, right knee; Translations: [EFFUSION RIGHT KNEE]Onset: 94-88-5390AgzgpcvlEfthdeli codes; unclassified (2 sources)Chronic back painOnset: 533345-77-4313EhwtmgexDidh and subcutaneous tissue infections (4 sources)Cutaneous abscess of perineum; Translations: [CUTANEOUS ABSCESS OF PERINEUM]Onset: 34-47-0973ZoxiarnjEnphiwdxdxcw (1 source)LOW BACK PAIN, UNSPECIFIED; Translations: [LOW BACK PAIN, UNSPECIFIED] Onset: 12-03-2022 Results Test NameValueInterpretationReference RangeFacilityC Urineon [id number] identified Cx Nom (U)Microbiology PROCEDURE: Urine Culture [R1] SOURCE: U Random BODY SITE: COLLECTED DATE/TIME: 08/30/2025 12:36 EST RECEIVED DATE/TIME: 08/30/2025 17:38 EST START DATE/TIME: 08/30/2025 17:38 EST FREE TEXT SOURCE: NOY PERSON, Rakesh STREETER MD, Rakesh Coronado FINAL REPORTS Final Report [] Verified Date/Time: 09/01/2025 07:19 EST 10,000 cfu/ml Enterococcus faecalis SUSCEPTIBILITY RESULTS LEGEND: S=Susceptible, N/R=Not Reported, Blank=Data not available, or drug not advisable or tested, I=Intermediate, ESBL=Extended spectrum beta-lactamase, R=Resistant, TFG=Thymidine-dependent strain, TOM=Beta-lactamase positive, CONRADO=mcg/m;(mg/L), S*=Predicted susceptible interp, R*=Predicted resistant interp Entfaeca Antibiotic CONRADO Dilutn CONRADO Interp Ampicillin <=2 S Ciprofloxacin <=1 S Daptomycin 4 S Levofloxacin <=1 S Linezolid <=2 S Nitrofurantoin <=32 S Penicillin 2 S Tetracycline >8 R Vancomycin 2 S Performing Locations R1: This test was performed at: [facility], [address] [place] [address], [id number] , , TxqrcyYvjmlvParma Community General HospitalComment on above:Performed By: #### [id number] #### [facility] [address] [place] [id number] Visit Summaryon [id number] Visit Summary Ambulatory Visit Summary NICHOL LYONS DAVIE Ivonne :1970 Visit Date:08/30/2025 Ambulatory Visit Instructions Your Diagnosis Recurrent UTI Chronic prostatitis BPH with obstruction/lower urinary tract symptoms Smoker Your Care Team Attending Physician - Rakesh STREETER MD This Is Your Medications List nitrofurantoin (nitrofurantoin macrocrystals-monohydrate 100 mg Cap) Contact prescribing physician if questions or concerns tamsulosin (tamsulosin 0.4 mg Cap) Procedures Performed Procedure on back. Discharge Vitals Temperature (Temporal Artery) 36.7 ???C Respiratory Rate 16 Height 189 cm Height 74 in Weight 78 kg Weight 171.96 lb BMI 21.84 What to do next You Need to Schedule the Following Appointments Follow Up with Rakesh STREETER MD, URL When: Where: [facility] [address], [place] [address]- Medications What How Much When Instructions Unchanged nitrofurantoin (nitrofurantoin macrocrystals-monohydrate 100 mg Cap) 1 Capsules Unchanged tamsulosin (tamsulosin 0.4 mg Cap) 1 Capsules By Mouth Every day Contact prescribing physician if questions or concerns Allergies No Known Allergies Problems Ongoing - Any problem that you are currently receiving treatment for. Atypical chest pain Benign prostatic hyperplasia BPH with obstruction/lower urinary tract symptoms Chronic back pain Chronic prostatitis Constipation Delay when starting to pass urine Lip swelling. Recurrent UTI Rupture of synovial popliteal cyst Smoker Smoker Urinary tract infectious disease Patient Survey You may receive a survey via text or e-mail asking about your office visit. Please share your experience with us by completing your survey. We appreciate your feedback and thank you for choosing us for your care. Education Materials Prostatitis Prostatitis is swelling or inflammation of the prostate gland, also called the prostate. This glandis about 1.5 inches wide and 1 inch high, and it is involved in making semen. The prostate is located below a man's bladder, in front of the rectum. There are four types of prostatitis: ??? Chronic prostatitis (CP), also called chronic pelvic pain syndrome (CPPS). This is the most common type of prostatitis. It is associated with increased muscle tone in the area between the hip bones (pelvic area), around the prostate. This type is also known as a pelvic floor disorder. ??? Chronic bacterial prostatitis. This type usually results from an acute bacterial infection in the prostate gland that keeps coming back or has not been treated properly. The symptoms are less severe than those caused by acute bacterial prostatitis, which lasts a shorter time. ??? Asymptomatic inflammatory prostatitis. This type does not have symptoms and does not need treatment. This is diagnosed when tests are done for other disorders of the urinary tract or reproductive tract. ??? Acute bacterial prostatitis. This type starts quickly and results from an acute bacterial infectionin the prostate gland. It is usually associated with a bladder infection, high fever, and chills. This is the least common type of prostatitis. What are the causes? Bacterial prostatitis is caused by an infection from bacteria. Chronic nonbacterial prostatitis may be caused by: ??? Factors related to the nervous system. This system includes thebrain, spinal cord, and nerves. ??? An autoimmune response. This happens when the body's disease-fighting system attacks healthy tissuein the body by mistake. ??? Psychological factors. These have to do with how the mind works. The causes of the other types of prostatitis are usually not known. What are the signs or symptoms? Symptoms of this condition depend on the type of prostatitis you have. Acute bacterial prostatitis Symptoms may include: ??? Pain or burning during urination. ??? Frequent and sudden urges to urinate. ??? Trouble starting to urinate. ??? Fever. ??? Chills. ??? Pain in your muscles or joints, lower back, or lower abdomen. Other types of prostatitis Symptoms may include: ??? Sudden urges to urinate, or urinating often. ??? Trouble starting to urinate. ??? Weak urine stream. ??? Dribbling after urination. ??? Discharge coming from the penis. ??? Pain in the testicles, the penis, or the tip of the penis. ??? Pain in the area in front of the rectum and below the scrotum (perineum). ??? Pain when ejaculating. How is this diagnosed? This condition may be diagnosed based on: ??? A physical and medical exam. ??? A digital rectal exam. For this, the health care provider may use a finger to feel the prostate. ??? A urine test to check for bacteria. ??? A semen sample or blood tests. ??? Ultrasound. ??? Urodynamic tests to check how your body handles urine. ??? Cystoscopy to loo (more content not included)...[facility] HospitalUrology Office/Clinic Noteon [id number] Office/Clinic NoteUrology Office/Clinic Note Chief Complaint New patient recurrent UTI HPI Staff Pt is a 54 year old male referred for recurrent UTI and would like to discuss TURP Pt has been seen multiple times at [facility] for UTI and treated since February of this year. Most current urine culture showed >100,000 cfu/ml staphylococcus epidermidis. IPSS: 4 denies abdominal/flank pain, denies visible blood, denies dysuria. *flomax 0.4 mg qd History of Present Illness Tests reviewed: UA, referral records, CT, ucxs, ER records I have reviewed the previous health record information and history for this patient from external provider. I have reviewed and verified the staff HPI to be accurate for this encounter. Review of Systems PHQ Score Initial Depression Screen Score: 0 SCORE ROS - Provider Constitutional: denies weight loss, denies hot flashes. Eyes: denies eye problems. Gastrointestinal: denies nausea, denies vomiting. Cardiovascular: denies chest pain or angina. Integumentary: no dryness Musculoskeletal: denies musculoskeletal symptoms. ENMT: denies otolaryngeal symptoms. Respiratory: no shortness of breath. Heme/Lymph: denies easy bleeding tendency, denies easy bruising tendency. Psychiatric: no confusion, no anxiety. Genitourinary: See HPI. Physical Exam Vitals & Measurements T: 36.7 ???C(Temporal Artery) RR: 16 HT: 189 cm HT: 74 in WT: 171.96 lb WT: 78 kg BMI: 21.84 General Appearance: alert, no distress, well nourished, well developed adult. Assessment/Plan Davie is a 54 yo M new pt here d/t recurrent UTI, would like to discuss TURP. 1. Recurrent UTI (N39.0: Urinary tract infection, site not specified) UCX: 03/24/25 - >100k Staph epidermis 05/24/25 - >100k E. faecalis 06/30/25 - >100k E. faecalis 07/22/25 - >100k Staph epidermis 08/17/25 - >100k Staph epidermis CT AP w con 11/11/24 TB - Neg. Has presented to ER multiple times d/t urinary sx/UTI. Most recently [facility] 08/17/25 d/t burning with urination. UA shows trace leuks. Onset last yr during the summer. Drinks 2-3 bottles of water daily. Educated pt recurrent infections secondary to CHRISTINA from #2. Most recently treated with macrobid, completed this. Ucx was sensitive to macrobid however, this abx is inadequate for prostatitis. Will send additional abx course to clear prostatitis. Voices the empiric abx usually makes him feel better then he is called and is told the abx needs changed according to the ucx. -Send urine for cx -Increase water intake, goal six 16 oz bottles daily 2. Chronic prostatitis (N41.1: Chronic prostatitis) See #1. -Start Bactrim D.S. bid x 1 wk then start Cipro 500 mg bid x 2 wks. SEs discussed. Sent to DM. 3. BPH with obstruction/lower urinary tract symptoms (N40.1: Benign prostatic hyperplasia with lower urinary tract symptoms) PSA: 02/06/24 - 0.9 03/04/25 - 0.7 & 14.3% UA shows trace leuks. IPSS 4. Taking Flomax 0.4 mg qd, started by ER. Taking AM. 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 Has cut back recently, voiding better since decreasing soda intake. Prior to starting Flomax, had hesitant/intermittent stream. Didn't feel like he emptied completely. We discussed male prostatic anatomy and how this is likely contributing to his urinary symptoms. We discussed alpha-julia medications to help with urinary symptoms, possible side effects. In order to assess degree of bladder outlet obstruction and bladder health, discussed further evaluation with cystoscopy. -Cont Flomax, refill sent to DM -Will schedule cysto. The risks and benefits for cystoscopy have been discussed. The risks include bleeding, infection, and irritation of the bladder and urinary channel, among others. The patient, after being informed of procedural details and after questions have been answered, wishes to proceed.Full informed consent has been obtained. Will order Local anesthesia. Prophylactic abx sent to DM. 4. Smoker (F17.200: Nicotine dependence, unspecified, uncomplicated) Started at 25 yo, 1 PPD. Increased risk for urothelial cancer. Smoking cessation education attached. Follow-up With When Contact Information NOY PERSON, Rakesh Coronado, URL [facility] [address] [place] [address]- Additional Instructions: schedule cysto Patient Education Prostatitis Cystoscopy Benign Prostatic Hyperplasia Steps to Quit Smoking Nelsy Solorzano, personally scribed for Dr. Streeter on 08/30/2025 12:27:32. . Documentation recorded by the scribe, Nelsy Moore, accurately reflects the services(s) I performed and decisions made by me. Authenticated by Dr. Streeter on 08/30/2025 12:32:12. Problem List/Past Medical History Ongoing Atypical chest pain Benign prostatic hyperplasia BPH with obstruction/lower urinary tract symptoms Chronic back pain Chronic prostatitis Constipation Delay when starting to pass urine Lip swelling. Recurrent UTI Rupture of synovial pop (more content not included)...[facility] HospitalComment on above:Result Comment: Electronically Signed By: Rakesh STREETER MD\.br\Date and Time Signed: 08/30/25 12:32 EST\.br\Electronically Co- Signed By: Nelsy Moore\.br\Date and Time Co-Signed: 08/30/25 12:27 EST Urine Cultureon [id number] identified Cx Nom (U)ORGANISM: Staphylococcus epidermidis (O:STAEPI) Mcallister Count >100,000 Aerobic CNORADO Charge (PCMIC38) SUSCEPTIBILITY ORGANISM: O:STAEPI ANTIBIOTIC INTERPRETATION CONRADO Ciprofloxacin R >2 Daptomycin S <0.5 Levofloxacin R >4 Linezolid S 2 Nitrofurantoin S <32 Oxacillin S <0.25 Penicillin R >2 Tetracycline S <4 Trimethoprim/Sulfamethoxazole S 22/38 Vancomycin S 1 S = SUSCEPTIBLE I [...] RESISTANT TO ALL B-LACTAM DRUGS. PERFORMED BY: [place] [address] PATHOLOGIST GENERAL FOREMAN LAMAR TINEO M.D.[facility] Physician GroupComment on above: Performed By: #### CUU #### [place] [address] USAUrine Cultureon [id number] identified Cx Nom (U) ORGANISM: Staphylococcus epidermidis (O:STAEPI) Mcallister Count >100,000 Aerobic CONRADO Charge (PCMIC38) SUSCEPTIBILITY ORGANISM: O:STAEPI ANTIBIOTIC INTERPRETATION CONRADO Ciprofloxacin R >2 Levofloxacin R >4 Nitrofurantoin S <32 Oxacillin R >2 Penicillin R >2 Tetracycline S <4 Trimethoprim/Sulfamethoxazole S 22/38 Vancomycin I 16 S = SUSCEPTIBLE I [...] RESISTANT TO ALL B-LACTAM DRUGS. PERFORMED BY: [place] [address] PATHOLOGIST GENERAL FOREMAN LAMAR TINEO M.D.[facility] Physician GroupComment on above: Performed By: #### CUU #### [place] [address] USAUrine cultureOrdered By: Katelyn Monzon on 07-22-2025 Bacteria identified Cx Nom (U)Staphylococcus epidermidisAbMarion HospitalUrine Cultureon [id number] identified Cx Nom (U) ORGANISM: Enterococcus faecalis (O:ENTFAC) Mcallister Count >100,000 Aerobic CONRADO Charge (PCMIC38) SUSCEPTIBILITY [...] RESISTANT TO ALL B-LACTAM DRUGS. PERFORMED BY: [place] [address] PATHOLOGIST GENERAL FOREMAN LAMAR TINEO M.D.[facility] Physician GroupComment on above: Performed By: #### CUU #### [facility] [address] [place], [place] [id number] USAUrine cultureOrdered By: Pablo Stovall on [id number] identified Cx Nom (U)Enterococcus faecalisAbMarion HospitalUrine Cultureon [id number] identified Cx Nom (U)ORGANISM: Enterococcus faecalis (O:ENTFAC) Mcallister Count >100,000 Aerobic CONRADO Charge (PCMIC38) SUSCEPTIBILITY [...] RESISTANT TO ALL B-LACTAM DRUGS. PERFORMED BY: [place] [address] PATHOLOGIST GENERAL FOREMAN LAMAR TINEO M.D.[facility] Physician GroupComment on above: Performed By: #### CUU #### [facility] [address] [place] [address] USAUrine cultureOrdered By: Katelyn Monzon on 05-24-2025 Bacteria identified Cx Nom (U)Enterococcus faecalisAbMarion HospitalUrine Cultureon [id number] identified Cx Nom (U)ORGANISM: Staphylococcus epidermidis (O:STAEPI) Mcallister Count >100,000 Aerobic CONRADO Charge (PCMIC38) SUSCEPTIBILITY [...] RESISTANT TO ALL B-LACTAM DRUGS. PERFORMED BY: [place] [address] PATHOLOGIST GENERAL FOREMAN DAPHNEY CONTE M.D.[facility] Physician GroupComment on above: Performed By: #### CUU #### [place] [address] USAUrine cultureOrdered By: Irina Nagel on 03-04-2025 Bacteria identified Cx Nom (U)Staphylococcus epidermidisAbMarion HospitalUrine Cultureon [id number] identified Cx Nom (U) ORGANISM: Staphylococcus epidermidis (O:STAEPI) Mcallister Count >100,000 Aerobic CONRADO Charge (PCMIC38) SUSCEPTIBILITY [...] RESISTANT TO ALL B-LACTAM DRUGS. PERFORMED BY: [place] [address] PATHOLOGIST GENERAL FOREMAN DAPHNEY CONTE M.D.[facility] Physician GroupComment on above: Performed By: #### CUU #### [address]Urine cultureOrdered By: Katelyn Monzon on 01-17-2025 Bacteria identified Cx Nom (U)[facility] HospitalUrine Cultureon [id number] identified Cx Nom (U)ORGANISM: Staphylococcus epidermidis (O:STAEPI) Mcallister Count >100,000 Aerobic CONRADO Charge (PCMIC38) SUSCEPTIBILITY [...] RESISTANT TO ALL B-LACTAM DRUGS. PERFORMED BY: [place] [address] PATHOLOGIST GENERAL FOREMAN DAPHNEY CONTE M.D.[facility] Physician GroupComment on above: Performed By: #### CUU #### [facility] [address] [place] [address] USAUrine cultureOrdered By: Irina Marker on 12-10-2024 Bacteria identified Cx Nom (U)AbnormalOhiohealth Southeastern Medical CenterER URINE PROFILEon [id number] Ql (U)NegativeNormalNEGATIVEPremier Health [facility] Hospital South Comment on above:Performed By: #### ERUR #### [facility] [address] [address] [address] Norbert McclureClarity (U)CLEARNormalCLEARPremier Health Miami [facility] Hospital SouthComment on above: Performed By: #### ERUR #### [facility] [address] [address] [address] Norbert McclureColor (U)YELLOWNormalYELLOWPremier Health Miami Valley Hospital SouthComment on above: Performed By: #### ERUR #### [facility] [address] [address] [address] Norbert Arambula micrscopic examination will be performed if indicated. NormalPremier Health Miami Valley Hospital SouthComment on above:Performed By: #### ERUR #### [facility] [address] [address] [address] Norbert McclureGlucose Ql (U)NegativeNormalNEGATIVEPremier Health Miami [facility] Hospital SouthComment on above:Performed By: #### ERUR #### [facility] [address] [address] [address] Norbert McclureHemoglobin Ql (U)NegativeNormalNEGLancaster Municipal Hospital Comment on above:Performed By: #### ERUR #### [facility] [address] [address] [address] Norbert McclureKetones Ql (U)NegativeNormalNEGLancaster Municipal HospitalComment on above:Performed By: #### ERUR #### [facility] [address] [address] [address] Norbert McclureLEUKOCYTESNegativeNormalNEGATIVEThe [facility] NorthComment on above:Performed By: #### ERUR #### [facility] [address] [address] [address] Norbert Gonzalez Ql (U)NegativeNormalNEGATIVEThe [facility] NorthComment on above:Performed By: #### ERUR #### [facility] [address] [address] [address] Norbert McclurepH (U)6.0 [pH]Normal5-9The [facility] NorthComment on above: Performed By: #### ERUR #### [facility] [address] [place] [address] Dr. Norbert McclureSPEC GRAVITY1.249Redjaf8.005-<=1.025The [facility] NorthComment on above:Performed By: #### ERUR #### [facility] [address] [place] [address] Dr. Norbert Jaquez PROTEINNegativeNormalNEGATIVE/ TRACEThe [facility] Comment on above:Performed By: #### ERUR #### [facility] [address] [place] [address] Dr. Norbert Palma MICRO INDNOT INDICATEDNormalThe [facility] NorthComment on above:Performed By: #### ERUR #### [facility] [address] [place] [address] Dr. Norbert Meyer Qn (U)0.2 {Dara'U}/dLNormal0.2 - 1.0The [facility] NorthComment on above:Performed By: #### ERUR #### [facility] [address] [place] [address] Dr. Norbert McclureXR LSPINE 2_3 VIEWSon [id number] LSPINE 2_3 VIEWSEXAMINATION: XR LSPINE 2_3 VIEWS [...] Electronically authenticated by: ELIZABETH CHOW Date: 2022-05-22 10:10[facility] Encounters Encounter DateEncounter TypeCare ProviderFacilityStart: 75-83-8205qngwprfastpradeep Alvescility:CD:[id number]: 08-30-2025 End: 03-52-1657dscxwefasbEqqiuwo R WATERSFacility:FTMCStart: 08-30-2025 End: 81-32-7991fzxfyzzktuHglmlkd R WATERSFacility:EU BellueStart: 08-30-2025 End: 01-85-1949Sbjxqeg encounter procedureRakesh STREETER [facility] start: 08-17-2025 End: 87-65-4198fkqiqztoceSwdbsv A Diab-[facility]: 08-17-2025 End: 73-92-9249Ltbxsdxz ReferredMariam A Diab MD-LAB [facility] Start: 08-13-2025 End: 12-17-3841nsavgigpufDtrepdh R WATERSFacility:EU [facility]: 08-13-2025 End: 70-70-7244Pdrmtby encounter procedureRakesh STREETER [facility] start: 80-23-3156txtfurzhvhYhluzew WATERSFacility:EU [place]vueStart: 07-22-2025 End: 09-62-0617wfhljmvmtdVwesbus D KatkoLouis [facility] Work Phone: Start: 07-22-2025 End: 43-53-3291Ylezkqlm ReferredKatelyn Garcia DO-LAB [facility] Start: 06-30-2025 End: 51-24-0392ylszihfigmQcpl M [facility] Work Phone: Start: 06-30-2025 End: 41-90-3536Wwhrwjka Drew Sheets DO-LAB [facility] Start: 05-24-2025 End: 83-79-0603wcwgoaflveKgdjipu D [facility] Work Phone: Start: 05-24-2025 End: 68-84-6350Yavfuvni ReferredKatelyn Garcia DO-LAB [facility] Start: 03-04-2025 End: 73-60-7985pdznzfxssaOdxqwgp Kari [facility] Work Phone: Start: 03-04-2025 End: 86-14-4169Fekquthi ReferredMelissa Marker DO Work Phone: [facility]ospStart: 01-17-2025 End: 52-96-7910nvozagrtchYmmlqjz D [facility] Work Phone: Start: 01-17-2025 End: 59-66-1570Mwrccksw ReferredMelissa Marker DO Work Phone: [facility]ospStart: 12-10-2024 End: 19-85-9621zlbmnwqnhyKfselfd Kari [facility] Work Phone: Start: 12-10-2024 End: 50-61-2470Mvaznzzj ReferredMelissa Marker DO Work Phone: [facility]-LAB [facility]ospStart: 12-03-2022 End: 12-59-5088wdzcpdnrjqVV KATELYN NEW .Facility:Q6Gmubk: 05-22-2022 End: 04-47-9459cwutatleheKE NONE LISTED REQUESTFacility:N6Epava: 03-27-2022 End: 81-27-5308esqovftoycJF NONE LISTED REQUESTFacility:U7Vcyiz: 02-21-2022 End: 71-96-3567wthbyqnldxKR NONE LISTED REQUESTFacility:H1 Procedures DateProcedureProcedure DetailPerforming ClinicianStart: 26-46-6786Imgcu culture Katelyn Katko DO Work Phone: Start: 67-66-6078Mevjj cultureJebreezyrey Katko DO Work Phone: Start: 37-33-1974Nhysw cultureJeffrey Katko DO Work Phone: Start: 36-29-9770Iqoce cultureMelissa Marker DO Work Phone: start: 37-62-8747Skrqw cultureMelissa Marker DO Work Phone: start: 47-49-8730Zoteg cultureMelissa Marker DO Work Phone: procedure on backPatrick STREETER Plan of Treatment DateCare ActivityDetailAuthorStart: 24-23-0330Kexoucnc identified in Urine by CultureUrine [facility] Hospitaltart: 89-13-5458Omynb [facility] Companyt[facility]: 11-58-3359Yjvbwiig identified in Urine by CultureUrine [facility] Hospital[facility]: 07-22-2025 Urine [facility]: 36-01-8387Frulnbrz identified in Urine by CultureUrine [facility] Start: 64-46-2474Cycck [facility]: 05-24-2025 Urine [facility]: 75-06-1084Ldqwbyjw identified in Urine by CultureUrine [facility] Start: 26-24-6469Mablfgre identified in Urine by CultureUrine [facility] Hospitaltart: 38-48-8383Mmjtr [facility]: 70-85-8447Edxocnha identified in Urine by CultureUrine [facility] Hospitalt[facility]: 54-00-0009Kzdse [facility] Companyt[facility]: 45-53-2944Wzoep cultureSelect Medical TriHealth Rehabilitation Hospitaltart: 52-17-2831Vznlamoc identified in Urine by CultureUrine Culture [facility] Payers DatePayer CategoryPayerPolicy [id number] [id number] Health Insurance [id number] 2.0.1.638772.3.57[id number] 2..1.757085.3.57[id number] 2..1.070146.3.57[id number] 2..1.581882.3.57[id number] 2..1.256001.3.57[id number] 2..1.543821.3.57[id number] 2..1.580419.3.57[id number] Wjolhax105-10-2366 [id number] 2.0.1.6[id number] 2.0.1.048577.3.579.2.531 [id number] 2.0.1.3[id number] 2.16.840.1.3[id number] 2.16.840.1.586338.3.579.2.531 [id number] 2.16.840.1.0[id number] 2.16.840.1.654571.3.579.2.531 Social History DateTypeDetailFabroadlawns medical centerToveterans administration medical center smoking status NHISUnknown if ever smokedLouis Stokes Cleveland Va Medical Center Work Phone: Start: 12-12-2024 End: 03-86-9069PanRsmp (finding)[facility] Hospitaltart: 94-25-6204Lxi Assigned At [facility] smoking statusExec[facility]rology of [facility] sex Assigned At [facility] Start: 64-50-7864Lzigfhm smoking statusHeavy tobacco smoker (finding)[facility] smoking statusNever [facility] Hospital Discharge instructions 08-30-2025 Note Date & WhfnEubbJdxkykap58-86-8836 Hospital Discharge instructions Patient Education 08/30/2025 12:23:52 Prostatitis Prostatitis Prostatitis is swelling or inflammation of the prostate gland, also called the prostate. This glandis about 1.5 inches wide and 1 inch high, and it is involved in making semen. The prostate is located below a man's bladder, in front of the rectum. There are four types of prostatitis: Chronic prostatitis (CP), also called chronic pelvic pain syndrome (CPPS). This is the most common type of prostatitis. It is associated with increased muscle tone in the area between the hip bones (pelvic area), around the prostate. This type is also known as a pelvic floor disorder. Chronic bacterial prostatitis. This type usually results from an acute bacterial infection in the prostate gland that keeps coming back or has not been treated properly. The symptoms are less severe than those caused by acute bacterial prostatitis, which lasts a shorter time. Asymptomatic inflammatory prostatitis. This type does not have symptoms and does not need treatment. This is diagnosed when tests are done for other disorders of the urinary tract or reproductive tract. Acute bacterial prostatitis. This type starts quickly and results from an acute bacterial infectionin the prostate gland. It is usually associated with a bladder infection, high fever, and chills. This is the least common type of prostatitis. What are the causes? Bacterial prostatitis is caused by an infection from bacteria. Chronic nonbacterial prostatitis may be caused by: Factors related to the nervous system. This system includes thebrain, spinal cord, and nerves. An autoimmune response. This happens when the body's disease-fighting system attacks healthy tissuein the body by mistake. Psychological factors. These have to do with how the mind works. The causes of the other types of prostatitis are usually not known. What are the signs or symptoms? Symptoms of this condition depend on the type of prostatitis you have. Acute bacterial prostatitis Symptoms may include: Pain or burning during urination. Frequent and sudden urges to urinate. Trouble starting to urinate. Fever. Chills. Pain in your muscles or joints, lower back, or lower abdomen. Other types of prostatitis Symptoms may include: Sudden urges to urinate, or urinating often. Trouble starting to urinate. Weak urine stream. Dribbling after urination. Discharge coming from the penis. Pain in the testicles, the penis, or the tip of the penis. Pain in the area in front of the rectum and below the scrotum (perineum). Pain when ejaculating. How is this diagnosed? This condition may be diagnosed based on: A physical and medical exam. A digital rectal exam. For this, the health care provider may use a finger to feel the prostate. A urine test to check for bacteria. A semen sample or blood tests. Ultrasound. Urodynamic tests to check how your body handles urine. Cystoscopy to look inside your bladder or inside the part of your body that drains urine from the bladder (urethra). How is this treated? Treatment for this condition depends on the type of prostatitis. Treatment may involve: Medicines to relieve pain or inflammation, or to help relax your muscles. Physical therapy. Heat therapy. Biofeedback. These techniques help you control certain body functions. Relaxation exercises. Antibiotic medicine, if your condition is caused by bacteria. Sitz baths. These warm water baths help to relax your pelvic floor muscles, which helps to relieve pressure on the prostate. Follow these instructions at home: Medicines Take bqzm-ycd-repajiw and prescription medicines only as told by your health care provider. If you were prescribed an antibiotic medicine, take it as told by your health care provider. Do notstop using the antibiotic even if you start to feel better. Managing pain and swelling Take sitz baths as directed by your health care provider. For a sitz bath, sit in warm water that is deep enough to cover your hips and buttocks. If directed, apply heat to the affected area as often as told by your health care provider. Use theheat source that your health care provider recommends, such as a moist heat pack or a heating pad. ?Place a towel between your skin and the heat source. ?Leave the heat on for 20 30 minutes. ?Remove the heat if your skin turns bright red. This is especially important if you are unable to feel pain, heat, or cold. You may have a greater risk of getting burned. General instructions Do exercises as told by your health care provider, if you were prescribed physical therapy, biofeedback, or relaxation exercises. Keep all follow-up visits as told by your health care provider. This is important. Where to find more information National [place] of Diabetes and Digestive and Kidney Diseases: https://www.niddk.nih.gov Contact a health care provider if: Your symptoms get worse. You have a fever. Get help right away if: You have chills. You feel light-headed or feel like you may faint. You cannot urinate. You have blood or blood clots in your urine. Summary Prostatitis is swelling or inflammation of the prostate gland. Treatment for this condition depends on the type of prostatitis. Take vqdm-aaw-wmtvdxi and prescription medicines only as told by your health care provider. Get help right away of you have chills, feel light-headed, feel like you may faint, cannot urinate,or have blood or blood clots in your urine. This information is not intended to replace advice given to you by your health care provider. Make sure you discuss any questions you have with your health care provider. Document Revised: 08/29/2023 Document Reviewed: 08/29/2023 [employer] Patient Education 2023 [employer]. 08/30/2025 12:23:23 Cystoscopy Cystoscopy Cystoscopy is a procedure that is used to help diagnose and sometimes treat conditions that affect the lower urinary tract. The lower urinary tract includes the bladder and the urethra. The urethra is the tube that drains urine from the bladder. Cystoscopy is done using a thin, tube-shaped instrument with a light and camera at the end (cystoscope). The cystoscope may be hard or flexible, depending on the goal of the procedure. The cystoscope is inserted through the urethra, into the bladder. Cystoscopy may be recommended if you have: Urinary tract infections that keep coming back. Blood in the urine (hematuria). An inability to control when you urinate (urinary incontinence) or an overactive bladder. Unusual cells found in a urine sample. A blockage in the urethra, such as a urinary stone. Painful urination. An abnormality in the bladder found during an intravenous pyelogram (IVP) or CT scan. Cystoscopy may also be done to remove a sample of tissue to be examined under a microscope (biopsy). Tell a health care provider about: Any allergies you have. All medicines you are taking, including vitamins, herbs, eye drops, creams, and uung-szv-vxrzmvd medicines. Any problems you or family members have had with anesthetic medicines. Any blood disorders you have. Any surgeries you have had. Any medical conditions you have. Whether you are or may be . What are the risks? Generally, this is a safe procedure. However, problems may occur, including: Infection. Bleeding. Allergic reactions to medicines. Damage to other structures or organs. What happens before the procedure? Medicines Ask your health care provider about: Changing or stopping your regular medicines. This is especially important if you are taking diabetes medicines or blood thinners. Taking medicines such as aspirin and ibuprofen. These medicines can thin your blood. Do not take these medicines unless your health care provider tells you to take them. Taking veew-wdr-loftpzt medicines, vitamins, herbs, and supplements. Tests You may have an exam or testing, such as: X-rays of the bladder, urethra, or kidneys. CT scan of the abdomen or pelvis. Urine tests to check for signs of infection. General instructions Follow instructions from your health care provider about eating or drinking restrictions. Ask your health care provider what steps will be taken to help prevent infection. These steps may include: ?Washing skin with a germ-killing soap. ?Taking antibiotic medicine. Plan to have a responsible adult take you home from the hospital or clinic. What happens during the procedure? You will be given one or more of the following: ?A medicine to help you relax (sedative). ?A medicine to numb the area (local anesthetic). The area around the opening of your urethra will be cleaned. The cystoscope will be passed through your urethra into your bladder. Germ-free (sterile) fluid will flow through the cystoscope to fill your bladder. The fluid will stretch your bladder so that your health care provider can clearly examine your bladder mathew. Your doctor will look at the urethra and bladder. Your doctor may take a biopsy or remove stones. The cystoscope will be removed, and your bladder will be emptied. The procedure may vary among health care providers and hospitals. What can I expect after the procedure? After the procedure, it is common to have: Some soreness or pain in your abdomen and urethra. Urinary symptoms. These include: ?Mild pain or burning when you urinate. Pain should stop within a few minutes after you urinate. This may last for up to 1 week. ?A small amount of blood in your urine for several days. ?Feeling like you need to urinate but producing only a small amount of urine. Follow these instructions at home: Medicines Take iuyb-pmd-wijizno and prescription medicines only as told by your health care provider. If you were prescribed an antibiotic medicine, take it as told by your health care provider. Do notstop taking the antibiotic even if you start to feel better. General instructions Return to your normal activities as told by your health care provider. Ask your health care provider what activities are safe for you. If you were given a sedative during the procedure, it can affect you for several hours. Do not drive or operate machinery until your health care provider says that it is safe. Watch for any blood in your urine. If the amount of blood in your urine increases, call your healthcare provider. Follow instructions from your health care provider about eating or drinking restrictions. If a tissue sample was removed for testing (biopsy) during your procedure, it is up to you to get your test results. Ask your health care provider, or the department that is doing the test, when yourresults will be ready. Drink enough fluid to keep your urine pale yellow. Keep all follow-up visits. This is important. Contact a health care provider if: You have pain that gets worse or does not get better with medicine, especially pain when you urinate. You have trouble urinating. You have more blood in your urine. Get help right away if: You have blood clots in your urine. You have abdominal pain. You have a fever or chills. You are unable to urinate. Summary Cystoscopy is a procedure that is used to help diagnose and sometimes treat conditions that affect the lower urinary tract. Cystoscopy is done using a thin, tube-shaped instrument with a light and camera at the end. After the procedure, it is common to have some soreness or pain in your abdomen and urethra. Watch for any blood in your urine. If the amount of blood in your urine increases, call your healthcare provider. If you were prescribed an antibiotic medicine, take it as told by your health care provider. Do notstop taking the antibiotic even if you start to feel better. This information is not intended to replace advice given to you by your health care provider. Make sure you discuss any questions you have with your health care provider. Document Revised: 06/27/2022 Document Reviewed: 05/26/2021 [employer] Patient Education 2023 [employer]. 08/30/2025 12:23:21 Benign Prostatic Hyperplasia Benign Prostatic Hyperplasia Benign prostatic hyperplasia (BPH) is an enlarged prostate gland that is caused by the normal agingprocess. The prostate may get bigger as a man gets older. The condition is not caused by cancer. The prostate is a walnut-sized gland that is involved in the production of semen. It is located in front of the rectum and below the bladder. The bladder stores urine. The urethra carries stored urine ou t of the body. An enlarged prostate can press on the urethra. This can make it harder to pass urine. The buildup of urine in the bladder can cause infection. Back pressure and infection may progress to bladder damage and kidney (renal) failure. What are the causes? This condition is part of the normal aging process. However, not all men develop problems from thiscondition. If the prostate enlarges away from the urethra, urine flow will not be blocked. If it enlarges toward the urethra and compresses it, there will be problems passing urine. What increases the risk? This condition is more likely to develop in men older than 50 years. What are the signs or symptoms? Symptoms of this condition include: Getting up often during the night to urinate. Needing to urinate frequently during the day. Difficulty starting urine flow. Decrease in size and strength of your urine stream. Leaking (dribbling) after urinating. Inability to pass urine. This needs immediate treatment. Inability to completely empty your bladder. Pain when you pass urine. This is more common if there is also an infection. Urinary tract infection (UTI). How is this diagnosed? This condition is diagnosed based on your medical history, a physical exam, and your symptoms. Tests will also be done, such as: A post-void bladder scan. This measures any amount of urine that may remain in your bladder after you finish urinating. A digital rectal exam. In a rectal exam, your health care provider checks your prostate by putting a lubricated, gloved finger into your rectum to feel the back of your prostate gland. This exam detects the size of your gland and any abnormal lumps or growths. An exam of your urine (urinalysis). A prostate specific antigen (PSA) screening. This is a blood test used to screen for prostate cancer. An ultrasound. This test uses sound waves to electronically produce a picture of your prostate gland. Your health care provider may refer you to a specialist in kidney and prostate diseases (urologist). How is this treated? Once symptoms begin, your health care provider will monitor your condition (active surveillance or watchful waiting). Treatment for this condition will depend on the severity of your condition. Treatment may include: Observation and yearly exams. This may be the only treatment needed if your condition and symptoms are mild. Medicines to relieve your symptoms, including: ?Medicines to shrink the prostate. ?Medicines to relax the muscle of the prostate. Surgery in severe cases. Surgery may include: ?Prostatectomy. In this procedure, the prostate tissue is removed completely through an open incision or with a laparoscope or robotics. ?Transurethral resection of the prostate (TURP). In this procedure, a tool is inserted through the opening at the tip of the penis (urethra). It is used to cut away tissue of the inner core of the prostate. The pieces are removed through the same opening of the penis. This removes the blockage. ?Transurethral incision (TUIP). In this procedure, small cuts are made in the prostate. This lessens the prostate's pressure on the urethra. ?Transurethral microwave thermotherapy (TUMT). This procedure uses microwaves to create heat. The heat destroys and removes a small amount of prostate tissue. ?Transurethral needle ablation (TUNA). This procedure uses radio frequencies to destroy and remove a small amount of prostate tissue. ?Interstitial laser coagulation (ILC). This procedure uses a laser to destroy and remove a small amount of prostate tissue. ?Transurethral electrovaporization (TUVP). This procedure uses electrodes to destroy and remove a small amount of prostate tissue. ?Prostatic urethral lift. This procedure inserts an implant to push the lobes of the prostate away from the urethra. Follow these instructions at home: Take utzm-wbc-rimepcz and prescription medicines only as told by your health care provider. Monitor your symptoms for any changes. Contact your health care provider with any changes. Avoid drinking large amounts of liquid before going to bed or out in public. Avoid or reduce how much caffeine or alcohol you drink. Give yourself time when you urinate. Keep all follow-up visits. This is important. Contact a health care provider if: You have unexplained back pain. Your symptoms do not get better with treatment. You develop side effects from the medicine you are taking. Your urine becomes very dark or has a bad smell. Your lower abdomen becomes distended and you have trouble passing urine. Get help right away if: You have a fever or chills. You suddenly cannot urinate. You feel light-headed or very dizzy, or you faint. There are large amounts of blood or clots in your urine. Your urinary problems become hard to manage. You develop moderate to severe low back or flank pain. The flank is the side of your body between the ribs and the hip. These symptoms may be an emergency. Get help right away. Call 911. Do not wait to see if the symptoms will go away. Do not drive yourself to the hospital. Summary Benign prostatic hyperplasia (BPH) is an enlarged prostate that is caused by the normal aging process. It is not caused by cancer. An enlarged prostate can press on the urethra. This can make it hard to pass urine. This condition is more likely to develop in men older than 50 years. Get help right away if you suddenly cannot urinate. This information is not intended to replace advice given to you by your health care provider. Make sure you discuss any questions you have with your health care provider. Document Revised: 05/02/2022 Document Reviewed: 05/02/2022 [employer] Patient Education 2023 [employer]. 08/30/2025 12:11:54 Steps to Quit Smoking Steps to Quit Smoking Smoking tobacco is the leading cause of preventable . It can affect almost every organ in the body. Smoking puts you and those around you at risk for developing many serious chronic diseases. Quitting smoking can be very challenging. Do not get discouraged if you are not successful the first time. Some people need to make many attempts to quit before they achieve long-term success. Do your best to stick to your quit plan, and talk with your health care provider if you have any questionsor concerns. How do I get ready to quit? When you decide to quit smoking, create a plan to help you succeed. Before you quit: Pick a date to quit. Set a date within the next 2 weeks to give you time to prepare. Write down the reasons why you are quitting. Keep this list in places where you will see it often. Tell your family, friends, and co-workers that you are quitting. Support from people you are close to can make quitting easier. Talk with your health care provider about your options for quitting smoking. Find out what treatment options are covered by your health insurance. Identify people, places, things, and activities that make you want to smoke (triggers). Avoid them. What first steps can I take to quit smoking? Throw away all cigarettes at home, at work, and in your car. Throw away smoking accessories, such as ashtrays and lighters. Clean your car. Make sure to empty the ashtray. Clean your home, including curtains and carpets. What strategies can I use to quit smoking? Talk with your health care provider about combining strategies, such as taking medicines while you are also receiving in-person counseling. Using these two strategies together makes you more likely to succeed in quitting than if you used either strategy on its own. If you are or , talk with your health care provider about finding counseling or other support strategies to quit smoking. Do not take medicine to help you quit smoking unless your health care provider tells you to. Quit right away Quit smoking completely, instead of gradually reducing how much you smoke over a period of time. Stopping smoking right away may be more successful than gradually quitting. Attend in-person counseling to help you build problem-solving skills. You are more likely to succeed in quitting if you attend counseling sessions regularly. Even short sessions of 10 minutes can be effective. Take medicine You may take medicines to help you quit smoking. Some medicines require a prescription. You can also purchase [id number]-[id number] medicines. Medicines may have nicotine in them to replace the nicotine in cigarettes. Medicines may: Help to stop cravings. Help to relieve withdrawal symptoms. Your health care provider may recommend: Nicotine patches, gum, or lozenges. Nicotine inhalers or sprays. Non-nicotine medicine that you take by mouth. Find resources Find resources and support systems that can help you quit smoking and remain smoke-free after you quit. These resources are most helpful when you use them often. They include: Online chats with a counselor. Telephone quitlines. Printed self-help materials. Support groups or group counseling. Text messaging programs. Mobile phone apps or applications. Use apps that can help you stick to your quit plan by providing reminders, tips, and encouragement. Examples of free services include Quit Guide from the CDC and smokefree.gov What can I do to make it easier to quit? Reach out to your family and friends for support and encouragement. Call telephone quitlines, such as 7-097-LFUG-NOW, reach out to support groups, or work with a counselor for support. Ask people who smoke to avoid smoking around you. Avoid places that trigger you to smoke, such as bars, parties, or smoke-break areas at work. Spend time with people who do not smoke. Lessen the stress in your life. Stress can be a smoking trigger for some people. To lessen stress, try: ?Exercising regularly. ?Doing deep-breathing exercises. ?Doing yoga. ?Meditating. What benefits will I see if I quit smoking? Over time, you should start to see positive results, such as: Improved sense of smell and taste. Decreased coughing and sore throat. Slower heart rate. Lower blood pressure. Clearer and healthier skin. The ability to breathe more easily. Fewer sick days. Summary Quitting smoking can be very challenging. Do not get discouraged if you are not successful the first time. Some people need to make many attempts to quit before they achieve long-term success. When you decide to quit smoking, create a plan to help you succeed. Quit smoking right away, not slowly over a period of time. Find resources and support systems that can help you quit smoking and remain smoke-free after you quit. This information is not intended to replace advice given to you by your health care provider. Make sure you discuss any questions you have with your health care provider. Document Revised: 10/05/2022 Document Reviewed: 10/05/2022 [employer] Patient Education 2023 [employer]. Follow Up Care 08/13/2025 08:16:51 With:NOY PERSON, Rakesh Coronado, URL Address: [facility] [address], [place] [address]- When: Unknown [facility] Clinical Note 08-30-2025 Note Date & [id number] NotePatient Education Infectious Disease Prostatitis Prostatitis is swelling or inflammation of the prostate gland, also called the prostate. This glandis about 1.5 inches wide and 1 inch high, and it is involved in making semen. The prostate is located below a man's bladder, in front of the rectum. There are four types of prostatitis: ??? Chronic prostatitis (CP), also called chronic pelvic pain syndrome (CPPS). This is the most common type of prostatitis. It is associated with increased muscle tone in the area between the hip bones (pelvic area), around the prostate. This type is also known as a pelvic floor disorder. ??? Chronic bacterial prostatitis. This type usually results from an acute bacterial infection in the prostate gland that keeps coming back or has not been treated properly. The symptoms are less severe than those caused by acute bacterial prostatitis, which lasts a shorter time. ??? Asymptomatic inflammatory prostatitis. This type does not have symptoms and does not need treatment. This is diagnosed when tests are done for other disorders of the urinary tract or reproductivetract. ??? Acute bacterial prostatitis. This type starts quickly and results from an acute bacterial infection in the prostate gland. It is usually associated with a bladder infection, high fever, and chills. This is the least common type of prostatitis. What are the causes? Bacterial prostatitis is caused by an infection from bacteria. Chronic nonbacterial prostatitis may be caused by: ??? Factors related to the nervous system. This system includes thebrain, spinal cord, and nerves. ??? An autoimmune response. This happens when the body's disease-fighting system attacks healthy tissue in the body by mistake. ??? Psychological factors. These have to do with how the mind works. The causes of the other types of prostatitis are usually not known. What are the signs or symptoms? Symptoms of this condition depend on the type of prostatitis you have. Acute bacterial prostatitis Symptoms may include: ??? Pain or burning during urination. ??? Frequent and sudden urges to urinate. ??? Trouble starting to urinate. ??? Fever. ??? Chills. ??? Pain in your muscles or joints, lower back, or lower abdomen. Other types of prostatitis Symptoms may include: ??? Sudden urges to urinate, or urinating often. ??? Trouble starting to urinate. ??? Weak urine stream. ??? Dribbling after urination. ??? Discharge coming from the penis. ??? Pain in the testicles, the penis, or the tip of the penis. ??? Pain in the area in front of the rectum and below the scrotum (perineum). ??? Pain when ejaculating. How is this diagnosed? This condition may be diagnosed based on: ??? A physical and medical exam. ??? A digital rectal exam. For this, the health care provider may use a finger to feel the prostate. ??? A urine test to check for bacteria. ??? A semen sample or blood tests. ??? Ultrasound. ??? Urodynamic tests to check how your body handles urine. ??? Cystoscopy to look inside your bladder or inside the part of your body that drains urine from the bladder (urethra). How is this treated? Treatment for this condition depends on the type of prostatitis. Treatment may involve: ??? Medicines to relieve pain or inflammation, or to help relax your muscles. ??? Physical therapy. ??? Heat therapy. ??? Biofeedback. These techniques help you control certain body functions. ??? Relaxation exercises. ??? Antibiotic medicine, if your condition is caused by bacteria. ??? Fayez baths. These warm water baths help to relax your pelvic floor muscles, which helps to relieve pressure on the prostate. Follow these instructions at home: Medicines ??? Take [id number] and prescription medicines only as told by your health care provider. ??? If you were prescribed an antibiotic medicine, take it as told by your health care provider. Donot stop using the antibiotic even if you start to feel better. Managing pain and swelling ??? Take sitz baths as directed by your health care provider. For a sitz bath, sit in warm water that is deep enough to cover your hips and buttocks. ??? If directed, apply heat to the affected area as often as told by your health care provider. Usethe heat source that your health care provider recommends, such as a moist heat pack or a heating pad. ? Place a towel between your skin and the heat source. ? Leave the heat on for 20?30 minutes. ? Remove the heat if your skin turns bright red. This is especially important if you are unable to feel pain, heat, or cold. You may have a greater risk of getting burned. General instructions ??? Do exercises as told by your health care provider, if you were prescribed physical therapy, biofeedback, or relaxation exercises. ??? Keep all follow-up visits as told by your health care provider. This is important. (more content not included)...[facility] Discharge instructions 07-23-2025 Note Date & [id number] Hospital Discharge instructions Follow Up Care 07/23/2025 11:30:39 With:NOY PERSON, Rakesh Coronado, URL Address: [address] [place] [id number] When: Unknown [facility] Clinical Note 03-27-2022 Note Date & [id number] NotePROCEDURE: XR KNEE RT 4V or > [...] Electronically authenticated by: GLENN VELA Date: 2022-03-27 10:58[facility] Evaluation + Plan note Note Date & TypeNoteFacilityEvaluation + Plan note Future Appointments Appointment Date:08/30/2025 11:00:00 AM Scheduled Provider:Rakesh STREETER MD Location:[facility] Appointment Type:URO New Patient [facility] Evaluation note Note Date & TypeNoteFacilityEvaluation noteNo assessment information available [facility] Work Phone: Hospital course Narrative Note Date & TypeNoteFacilityHospital course Narrative No data available for this section [facility] Progress note Note Date & TypeNoteFacilityProgress note No data available for this section [facility] Reason for referral (narrative) Note Date & TypeNoteFacilityReason for referral (narrative)No reason for referral [facility] Work [facility]: Summary Purpose Family History No Family History Records Found No data available for this section No Family History Records Found No data available for this section No Family History Records FoundNo Family History Records FoundNo Family History Records [...] Records FoundNo Status Records FoundNo Status Records FoundNo Status Records FoundNo Status Records Found INFORMATION SOURCE (unrecogn ized section and content) DATE CREATED AUTHOR 01/16/2023 [facility] DATE CREATED AUTHOR AUTHOR'S ORGANIZ ATION 08/21/2025 [facility] DATE CREATED AUTHOR AUTHOR'S ORGANIZ ATION 09/01/2025 [facility] DATE CREATED AUTHOR AUTHOR'S ORGANIZ ATION 09/02/2025 [facility] DATE CREATED AUTHOR AUTHOR'S ORGANIZ ATION 09/09/2025 [facility] Care Teams (unrecognized sec tion and content) Team Status: Inactive Member Role Status Dates Irina Nagel DO Attending Provider Active Start: December 10, 2024 End: December 10, 2024 Team Status: Inactive Member Role Status Dates Katelyn Monzon , Attending Provider Active S tart: January 17, [...] July 22, 2025 End: July 22, 2025 Team Status: Inactive Member Role/Relationship Status Dates Katelyn Monzon DO Attending Provider Active S tart: May 24, 2025 End: May 24, 2025 Team Status: Inactive Member Role/Relationship Status Dates Pablo Stovall DO Attending Provider Active Sta rt: June 30, 2025 End: June 30, 2025 Team Status: Inactive Member Role/Relationship Status Dates Katelyn Monzon DO Attending Provider Active S tart: July 22, 2025 End: July 22, 2025 Team Status: Inactive Member Role/Relationship Status Dates Melody Aleman MD Attending Provider Active Sta rt: August 17, 2025 End: August 17, 2025 Goals (unrecognized section and content) Goals may be documented in a n alternate sectionGoals may be documented in an alternate sectionGoals may be documented in an alternate sectionGoals may be documented in an alternate sectionGoals may be documented in an alternate sectionGoals may be documented in an alternate section No data available for this sectionGoals may be documented in an alternate [...] BE BASED ON THE PRIMARY CLINICAL RECORDS. [facility] [employer] [facility]. provides no warranty or guarantee of the accuracy or completeness of information in this document.
== END 2025-09-16 11:00 | disposition home or self-care (01) ==
LOC: PST 11:00
PROVIDERS: Visit Provider Urology
DX: Z01.818 Encounter for other preprocedural examination (principal); N39.0 Urinary tract infection, site not specified